=== PATIENT | male | born 1985 | race African-American/Black ===

== ENCOUNTER 2018-06-09 22:45 | Inpatient (IN) | payer MEDICAID, OTHER ==
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
[2018-06-10 00:01] LABS: Amphetamine Screen,Urine Not Detected (NotDetected); Barbiturate Screen,Urine Not Detected (NotDetected); Benzodiazepines Screen,Urine Not Detected (NotDetected); Cocaine Screen,Urine Not Detected (NotDetected); Methadone Screen, Urine Not Detected (NotDetected); Opiate Screen,Urine Not Detected (NotDetected); Oxycodone Screen, Urine Not Detected (NotDetected); Phencyclidine Screen,Urine Not Detected (NotDetected); Tricyclic Antidepressant,Urine Not Detected (NotDetected); Urn Cannabinoid Scrn Not Detected (NotDetected)
[2018-06-10] MEDS ORDERED: MAGNESIUM HYDROXIDE 2,400 MG/10 ML CUP PO PRN (01:13)
[2018-06-10] MEDS ORDERED: MAG HYDROX/AL HYDROX/SIMETH 30 ML CUP PO PRN (01:13)
[2018-06-10] MEDS ORDERED: ACETAMINOPHEN TAB 325 MG TAB PO PRN (01:13)
--- NOTE | 2018-06-10 02:22 | P.HPMEDMHU ---
History of Present Illness H&P Date: 06/10/18 Chief Complaint: anxiety Patient is a 32-year-old -[place] male with a past medical history of hypertension not currently on treatment, schizophrenia, and tobacco abuse who has been admitted to the mental health unit for suicidal/homicidal behaviors and increased anxiety. Patient seen and examined. He states that he has had a cold for the last few days. He reports a nonproductive cough, shortness of breath, sore throat, runny nose, stuffy nose. He denies any ear pain. He states he has had headaches for the last 2-1/2 years. He reports vomiting 1 and some nausea. He denies any diarrhea and constipation. He does complain of some chest pain that happens when he feels anxious. He is unable to quantify it further for me. He is unable to tell me when it happened, how often it happens or how severe it is. He denies any dysuria. He reports a weight loss. Is very unclear on how much he lost approximately 50 pounds. He initially tells me it was over 2 weeks, then over 2 months and then he is not sure on how long. He also complains of insomnia. He has increased anxiety. He denies any unusual weakness, numbness, tingling, changes in his hair/skin/ nails. He denies any fevers. Past Medical History Additional Past Medical History / Comment(s): Possible history of hypertension and used to be on Coreg. History of Any Multi-Drug Resistant Organisms: MRSA Date of last positivie culture/infection: 2017 MDRO Source:: right second finger. Past Surgical History: No Surgical Hx Reported Smoking Status: Current every day smoker Past Alcohol Use History: None Reported Past Drug Use History: None Reported Additional History: Lives by himself, not currently employed. - Past Family History Father Family Medical History: No Reported History Mother Family Medical History: No Reported History Medications and Allergies Home Medications Medication Instructions Recorded Confirmed Type Carvedilol [Coreg] 3.125 mg PO BID 06/09/18 06/09/18 History Allergies Allergy/AdvReac Type Severity Reaction Status Date / Time quetiapine [From Seroquel] Allergy Unknown Verified 06/10/18 02:15 ziprasidone [From Geodon] Allergy Unknown Verified 06/10/18 02:15 Physical Exam Osteopathic Statement: *. No significant issues noted on an osteopathic structural exam other than those noted in the History and Physical/Consult. Vitals: Vital Signs Temp Pulse Resp BP Pulse Ox 06/10/18 01:47 81 18 168/89 98 06/09/18 22:48 98.7 F 98 16 145/80 99 Intake and Output 06/09/18 06/09/18 06/10/18 14:59 22:59 06:59 Other: Weight 99.79 kg General: non toxic, no distress, appears at stated age, normal weight Derm: no unusual rashes/lesions no unusual ecchymoses, warm, dry Head: atraumatic, normocephalic, symmetric Eyes: EOMI, no lid lag, anicteric sclera, pupils equal round reactive to light ENT: Nose and ears atraumatic, no thrush, no pharyngeal erythema Neck: No thyromegaly, no cervical lymphadenopathy, trachea midline, supple Mouth: no lip lesion, mucus membranes moist Cardiovascular: S1S2 reg, no murmur, positive posterior tibial pulse bilateral, no edema, capillary refill less than 2 seconds Lungs: decreased breath sounds bilateral, no rhonchi, no rales , no accessory muscle use Abdominal: soft, nontender to palpation, no guarding, no appreciable organomegaly, normal bowel sounds Ext: no gross muscle atrophy, muscle strength 5 out of 5 in all 4 extremities grossly, no contractures, Neuro: CN II-XI grossly intact, finger to nose within normal limits, Psych: Alert, oriented, anxious and fidgeting during our conversation, evasive with questioning Cranial Nerve Examination - Cranial Nerves Cranial Nerve II- Optic: Intact Cranial Nerve III- Oculomotor: Intact Cranial Nerve IV- Trochlear: Intact Cranial Nerve V- Trigeminal: Intact Cranial Nerve - Abducens: Intact Cranial Nerve VII- Facial: Intact Cranial Nerve VIII- Auditory: Intact Cranial Nerve IX- Glossopharyngeal: Intact Cranial Nerve X- Vagus: Intact Cranial Nerve XI- Accessory: Intact Cranial Nerve XII- Hypoglossal: Intact Thrombosis Risk Factor Assmnt - DVT/VTE Prophylaxis DVT/VTE Prophylaxis: Low risk, early ambulation encouraged Assessment and Plan Assessment: Upper respiratory tract infection - claritin and flonase X 5 days, prn mucinex and cephacol Tobacco abuse - cessation - nicotine replacement Obesity BMI 34.5 - structure outpatient weight loss Schizophrenia with anxiety and bizarre behaviors - your psych management Thank you for allowing us to participate in the care of this patient. We will follow peripherally. Do not hesitate to contact us with questions. Someone can be reached from the [facility] hospitalist group at all hours of the day at [phone].
[2018-06-10 02:35] VITALS: BMI 28.0
[2018-06-10] MEDS: BENZOCAINE/MENTHOL LOZENG 1 EACH LOZENGE MUCOUS MEM PRN ×2 (03:31→20:45)
[2018-06-10] MEDS: guaiFENesin 600 MG TABLET.ER PO PRN (03:32)
[2018-06-10] MEDS: LORazepam 1 MG TAB PO PRN (03:39)
[2018-06-10] MEDS: LORATADINE 10 MG TAB PO SCH (07:45)
[2018-06-10] MEDS: FLUTICASONE 50MCG/SPRAY NASAL 16GM EA NOSTRIL SCH (07:46)
[2018-06-10] MEDS: NICOTINE 14MG/24HR PATCH TRANSDERM SCH (07:46)
[2018-06-10 09:11] LABS: Basophils # (A) 0.1 k/uL (0-0.2); Basophils % (A) 1 %; Eosinophils # (A) 0.2 k/uL (0-0.7); Eosinophils % (A) 2 %; HCT 46.6 % (39.0-53.0); HGB 15.2 gm/dL (13.0-17.5); Lymphocytes # (A) 1.9 k/uL (1.0-4.8); Lymphocytes % (A) 21 %; MCH 30.2 pg (25.0-35.0); MCHC 32.6 g/dL (31.0-37.0); MCV 92.5 fL (80.0-100.0); Mean Platelet Volume 6.9; Monocytes # (A) 0.5 k/uL (0-1.0); Monocytes % (A) 5 %; Neutrophils # (A) 6.2 k/uL (1.3-7.7); Neutrophils % (A) 69 %; Platelet Count 292 k/uL (150-450); RBC 5.04 m/uL (4.30-5.90); RDW 13.3 % (11.5-15.5)
[2018-06-10 09:24] LABS: ALT 27 U/L (21-72); AST 33 U/L (17-59); Albumin 4.2 g/dL (3.5-5.0); Alkaline Phosphatase 78 U/L (38-126); Anion Gap 10 mmol/L; Blood Urea Nitrogen 10 mg/dL (9-20); Calcium 9.6 mg/dL (8.4-10.2); Carbon Dioxide 28 mmol/L (22-30); Chloride 102 mmol/L (98-107); Cholesterol 127 mg/dL (<200); Glucose 105 mg/dL (74-99); HDL Cholesterol 35 mg/dL (40-60); LDL Cholesterol,Calculated 75 mg/dL (0-99); Sodium 140 mmol/L (137-145); Total Bilirubin 1.1 mg/dL (0.2-1.3); Total Protein 7.3 g/dL (6.3-8.2); Triglycerides 83 mg/dL (<150)
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
[2018-06-10] MEDS: ARIPiprazole 15 MG TAB PO SCH (10:44)
[2018-06-10 20:22] LABS: Hemoglobin A1C 5.1 % (4.0-6.0)
[2018-06-10] MEDS ORDERED: HALOPERIDOL LACTATE 5 MG/ML 1 ML VIAL IM PRN (23:19)
[2018-06-10] MEDS ORDERED: LORazepam 2 MG/ML INJ IM PRN (23:21)
[2018-06-10] MEDS ORDERED: BENZTROPINE MESYLATE 1 MG TAB PO PRN (23:22)
[2018-06-10] MEDS ORDERED: LORazepam 2 MG/ML INJ ONE (23:28)
[2018-06-10] MEDS ORDERED: HALOPERIDOL LACTATE 5 MG/ML 1 ML VIAL ONE (23:29)
[2018-06-10] MEDS ORDERED: BENZTROPINE 2 MG/2 ML AMP IM PRN (23:31)
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
[2018-06-11] MEDS ORDERED: HALOPERIDOL LACTATE 5 MG/ML 1 ML VIAL IM STA (00:32)
[2018-06-11] MEDS ORDERED: diphenhydrAMINE 50 MG/ML 1 ML VIAL IM STA (00:32)
[2018-06-11] MEDS: guaiFENesin 600 MG TABLET.ER PO PRN ×2 (02:58→23:57)
[2018-06-11] MEDS: ARIPiprazole 15 MG TAB PO SCH (07:29)
[2018-06-11] MEDS: LORATADINE 10 MG TAB PO SCH (07:29)
[2018-06-11] MEDS: FLUTICASONE 50MCG/SPRAY NASAL 16GM EA NOSTRIL SCH (07:29)
[2018-06-11] MEDS: NICOTINE 14MG/24HR PATCH TRANSDERM SCH (07:29)
--- NOTE | 2018-06-11 12:20 | P.PN ---
Subjective Progress Note Date: 06/11/18 Principal diagnosis: Schizophrenia Patient's Immediate Situation: Endangers others' safety, Violent behavior Patient's Immediate Situation - Comment: Became agitated after wanting to leave the hospital. Patient was fighting security. Patient's Reaction to the Intervention: Appropriate, Cooperative Patient's Medical & Behavioral Condition: Awake, Alert, Follows directions Objective - Vital Signs Vital signs: Vital Signs Temp 99.4 F 06/10/18 02:19 Pulse 80 06/11/18 01:05 Resp 16 06/11/18 01:05 BP 135/68 06/11/18 01:05 Pulse Ox 99 06/11/18 01:05 - Labs CBC & Chem 7: 06/10/18 08:38 06/10/18 08:38 Assessment and Plan Assessment: Patient presented to nursing station demanding to be discharged. Patient was demanding for the doctor to see him tonight and be discharged from the unit "now ". Patient then demanded for this script writer to let him go home. Patient presented paranoid and tense with intense eye contact. Patient stating to staff that he is not playing our games, swearing and yelling at this wrtier to get away from him. Patient stated to this nurse "you better let me out of here!! HPI: The patient was admitted with reports from his brother that he had been acting bizarre, had been getting into altercations with his neighbors, and not caring for himself well. The patient has a known history of schizophrenia and it appears he has been off of antipsychotic medication for an extended period of time. He was cared for by [facility] in the past and I believe his case was closed due to his noncompliance. The patient states he felt overwhelmed yesterday he felt stressed and he couldn't think straight. He reports feeling better now that he is here. He endorses no suicidal or homicidal ideation intent or plan. He indicates that his sleep had been impaired but he slept better last night. Appetite was impaired but he states that is improving as well. No reported tearfulness or crying spells. He doesn' t feel sad at this time. He reports no particular struggles with anxiety symptoms. He endorses no hypomanic or manic episodes. It does appear that he is underreporting symptoms during our evaluation. He states he has no firearms at home. PAST PSYCHIATRIC HISTORY: He patient has had numerous inpatient admissions he states somewhere between 5 and 10. He reports no history of suicide attempts. He has been on Abilify maintena, Risperdal Consta, Invega Sustenna. Of the 3 he prefers Abilify maintena. He was in treatment with [facility] in the past. He has had to be court ordered for treatment in the past as well. During the night he was agitated belligerent and wanting to fight the nursing staff. He was given Haldol 10 mg IM and 100 mg Benadryl. MENTAL STATUS EXAM: The patient is a 32-year-old -[place] male appearing older than his stated age. He is dressed in his own clothing. He has a disheveled appearance hygiene is fair. Dentition appears impaired as he has staining of his teeth. Eye contact is appropriate. He has a hoarse voice and states that has been a chronic issue. He reports his mood is "better". He indicates having no suicidal ideation intent or plan no homicidal ideation intent or plan. He is reporting no auditory or visual hallucinations or any specific delusions. Based on reports from his brother to appears that the patient may be underreporting symptoms of psychosis. The patient demonstrates no tangential thinking loose associations or flight of ideas. He does not appear hypomanic or manic at this time. He maintains a constricted to blunted affect. He demonstrates no verbal or physical aggressiveness. He is able to answer questions today and is much calmer after he had the 10 mg of Haldol and 100 mg Benadryl. (1) Acute psychosis Current Visit: Yes Status: Acute Code(s): F23 - BRIEF PSYCHOTIC DISORDER SNOMED Code(s): 44009790 Time with Patient: Less than 30
[2018-06-11] MEDS: BENZOCAINE/MENTHOL LOZENG 1 EACH LOZENGE MUCOUS MEM PRN ×2 (17:45→20:17)
[2018-06-11] MEDS: LORazepam 1 MG TAB PO PRN (23:57)
[2018-06-12] MEDS: BENZOCAINE/MENTHOL LOZENG 1 EACH LOZENGE MUCOUS MEM PRN ×4 (03:18→20:08)
[2018-06-12] MEDS: ARIPiprazole 15 MG TAB PO SCH (08:00)
[2018-06-12] MEDS: LORATADINE 10 MG TAB PO SCH (08:00)
[2018-06-12] MEDS: FLUTICASONE 50MCG/SPRAY NASAL 16GM EA NOSTRIL SCH (08:07)
[2018-06-12] MEDS: NICOTINE 14MG/24HR PATCH TRANSDERM SCH (08:08)
--- NOTE | 2018-06-12 09:52 | P.PN ---
Subjective Progress Note Date: 06/12/18 Principal diagnosis: Schizophrenia 06/10/2018Patient's Immediate Situation: Endangers others' safety, Violent behavior Patient's Immediate Situation - Comment: Became agitated after wanting to leave the hospital. Patient was fighting security. Patient's Reaction to the Intervention: Appropriate, Cooperative Patient's Medical & Behavioral Condition: Awake, Alert, Follows directions 06/12/2018 more alert and oriented to person place and time. He realized had to get back on his community mental health medications since he is not functioning well. He has developed a cold and has nasal congestion and raspy voice. He is not suicidal homicidal, appears no voices does not see anything. His mood is stable. Objective - Vital Signs Vital signs: Vital Signs Temp 98.4 F 06/12/18 06:25 Pulse 103 H 06/12/18 03:17 Resp 14 06/12/18 03:17 BP 116/67 06/12/18 03:17 Pulse Ox 99 06/11/18 01:05 - Labs CBC & Chem 7: 06/10/18 08:38 06/10/18 08:38 Assessment and Plan Assessment: Patient presented to nursing station demanding to be discharged. Patient was demanding for the doctor to see him tonight and be discharged from the unit "now ". Patient then demanded for this grant writer to let him go home. Patient presented paranoid and tense with intense eye contact. Patient stating to staff that he is not playing our games, swearing and yelling at this wrtier to get away from him. Patient stated to this nurse "you better let me out of here!! HPI: The patient was admitted with reports from his brother that he had been acting bizarre, had been getting into altercations with his neighbors, and not caring for himself well. The patient has a known history of schizophrenia and it appears he has been off of antipsychotic medication for an extended period of time. He was cared for by [facility] in the past and I believe his case was closed due to his noncompliance. The patient states he felt overwhelmed yesterday he felt stressed and he couldn't think straight. He reports feeling better now that he is here. He endorses no suicidal or homicidal ideation intent or plan. He indicates that his sleep had been impaired but he slept better last night. Appetite was impaired but he states that is improving as well. No reported tearfulness or crying spells. He doesn' t feel sad at this time. He reports no particular struggles with anxiety symptoms. He endorses no hypomanic or manic episodes. It does appear that he is underreporting symptoms during our evaluation. He states he has no firearms at home. PAST PSYCHIATRIC HISTORY: He patient has had numerous inpatient admissions he states somewhere between 5 and 10. He reports no history of suicide attempts. He has been on Abilify maintena, Risperdal Consta, Invega Sustenna. Of the 3 he prefers Abilify maintena. He was in treatment with [facility] in the past. He has had to be court ordered for treatment in the past as well. During the night he was agitated belligerent and wanting to fight the nursing staff. He was given Haldol 10 mg IM and 100 mg Benadryl. MENTAL STATUS EXAM: The patient is a 32-year-old -[place] male appearing older than his stated age. He is dressed in his own clothing. He has a disheveled appearance hygiene is fair. Dentition appears impaired as he has staining of his teeth. Eye contact is appropriate. He has a hoarse voice and states that has been a chronic issue. He reports his mood is "better". He indicates having no suicidal ideation intent or plan no homicidal ideation intent or plan. He is reporting no auditory or visual hallucinations or any specific delusions. Based on reports from his brother to appears that the patient may be underreporting symptoms of psychosis. The patient demonstrates no tangential thinking loose associations or flight of ideas. He does not appear hypomanic or manic at this time. He maintains a constricted to blunted affect. He demonstrates no verbal or physical aggressiveness. He is able to answer questions today and is much calmer after he had the 10 mg of Haldol and 100 mg Benadryl. (1) Acute psychosis Current Visit: Yes Status: Acute Priority: Medium Code(s): F23 - BRIEF PSYCHOTIC DISORDER SNOMED Code(s): 54457007 Plan: Client was discharge and instructed him to talk with Dr. Manriquez Time with Patient: Less than 30
[2018-06-13] MEDS: LORazepam 1 MG TAB PO PRN (01:30)
[2018-06-13] MEDS: guaiFENesin 600 MG TABLET.ER PO PRN (01:31)
[2018-06-13] MEDS: BENZOCAINE/MENTHOL LOZENG 1 EACH LOZENGE MUCOUS MEM PRN ×3 (01:34→17:58)
[2018-06-13] MEDS: LORATADINE 10 MG TAB PO SCH (09:16)
[2018-06-13] MEDS: FLUTICASONE 50MCG/SPRAY NASAL 16GM EA NOSTRIL SCH (09:17)
[2018-06-13] MEDS: NICOTINE 14MG/24HR PATCH TRANSDERM SCH (09:17)
--- NOTE | 2018-06-13 09:49 | P.PN ---
Progress Note - Text Interval history: The patient is found in the hallway follows me to an interview room. It is reported that he had an agitated episode Wednesday night. In the evening he had demanded to be discharged. He was temporarily restrained and received intramuscular medication. There've been no other events following that. Staff state that the patient withdrew his voluntary status on Wednesday. We discussed the patient's psychotropic medication he has no questions or concerns we discussed titrating the dose and he is agreeable. We discussed transitioning to the Abilify maintena prior to discharge and he is agreeable. He states he has spoken with his mother over the phone and she visited over the weekend. Mental status exam: The patient is alert he seated calmly he is cooperative and easily directed. He reports that his mood is improved he is reporting no suicidal or homicidal thoughts. He reports no auditory or visual hallucinations or any specific delusions. He may be underreporting delusional thought. He demonstrates no verbal or physical aggressiveness he demonstrates no involuntary repetitive movements. Insight and judgment improving. Eye contact is appropriate speech is spontaneous fluent nonpressured. He continues to reiterate his desire to be discharged soon and we discussed our treatment goals while here. Plan: The patient will continue on the Abilify I will titrate the dose to 20 mg daily. We will monitor him for safety. We will consider discharging him in the next 1-2 if clinically appropriate. Vital signs reviewed.
--- NOTE | 2018-06-13 16:56 | XR ---
EXAMINATION TYPE: XR chest 1V portable DATE OF EXAM: 06/13/2018 COMPARISON: 04/19/2013 HISTORY: Cough and short of breath TECHNIQUE: Single frontal view of the chest is obtained. FINDINGS: There is no heart failure nor confluent pneumonic infiltrate. Heart size is normal. Costop hrenic angles are clear. There is small linear density at the left lung base. IMPRESSION: Small area of subsegmental atelectasis at the left lung base. Normal heart.
[2018-06-14 00:55] VITALS: BP 152/92; PULSE 75; RESP 20; TEMP 98.3
[2018-06-14] MEDS: BENZOCAINE/MENTHOL LOZENG 1 EACH LOZENGE MUCOUS MEM PRN (02:30)
[2018-06-14] MEDS: LORazepam 1 MG TAB PO PRN (02:31)
[2018-06-14] MEDS: guaiFENesin 600 MG TABLET.ER PO PRN (02:31)
[2018-06-14] MEDS: FLUTICASONE 50MCG/SPRAY NASAL 16GM EA NOSTRIL SCH (08:22)
[2018-06-14] MEDS: NICOTINE 14MG/24HR PATCH TRANSDERM SCH (08:23)
[2018-06-14] MEDS: LORATADINE 10 MG TAB PO SCH ×2 (08:23→09:46)
--- NOTE | 2018-06-14 09:17 | P.DS ---
Providers Date of admission: 06/10/18 01:05 Expected date of discharge: 06/14/18 Attending physician: Julian Manriquez Consults: 06/10/18 01:13 Consult Physician Routine Consulting Provider: Arun Draper Consult Reason/Comments: medical management Do you want consulting provider notified?: Already Contacted Primary care physician: Stated None - Discharge Diagnosis(es) (1) Schizophrenia Current Visit: Yes Status: Acute Priority: High Hospital Course: Brief summary of admission note: This patient is a 32-year-old -Fijian male who was admitted to the mental health unit through the emergency room for symptoms of psychosis. The patient reportedly was acting bizarre had been getting into verbal altercations with neighbors and not caring for himself well. He had been off of his antipsychotic medication for an extended period of time. For full details please refer to my psychiatric evaluation dated 06/10. Summary of hospital course: The patient was admitted to the mental health unit voluntarily. We reviewed his presenting symptoms and treatment options. We decided to reinitiate Abilify and the dose was titrated to 20 mg daily. He was willing to comply with the Abilify maintena injection which will be given today. The patient selectively attended groups. He has been cooperative and directable. He did have an episode of agitation on Wednesday evening where he was demanding to be discharged. He required use of restraints and he received injectable medication. He has demonstrated no further agitated behavior over the last several days. The patient is verbalizing no thoughts of harming himself or others. He is able to attend to his activities of daily living. He is reporting a resolution of his psychotic symptoms. Social work was able to reach the patient's mother via phone. Mental status exam: The patient is an -Fijian male appearing older than his stated age. He is dressed in his own clothing he has a disheveled appearance hygiene is adequate. Eye contact is appropriate speech is fluent and spontaneous nonpressured. He is easily directed during the session. He reports no hopelessness thinking he reports no suicidal or homicidal ideation intent or plan. He is endorsing no auditory or visual hallucinations endorses no specific delusions. He seated calmly he demonstrates no verbal or physical aggressiveness. He demonstrates no involuntary repetitive movements. Insight and judgment improved. He is oriented to person place and date. He demonstrates future oriented thinking. Thought process is linear he demonstrates no tangential thinking loose associations or flight of ideas. He does not appear hypomanic or manic. Impressions 1. Schizophrenia 2. Hypertension Plan: The patient will be discharged from mental health unit to return home. He will continue on Abilify 20 mg daily for 2 weeks then discontinue. He will receive the Abilify maintena 400 mg injection today. We we'll have social work arrange his outpatient follow-up most likely with [facility]. The patient's encouraged to continue abstaining from any use of alcohol or illicit drugs. At this time the patient is demonstrating inability to care for himself in meeting his ADLs. He reports no suicidal or homicidal ideation intent or plan he is endorsing no current acute symptoms of psychosis. He is appropriate for transition back to outpatient care. He is instructed to return to the hospital any safety concerns. The patient indicates he has not been using the nicotine patch while here and does not wish to have a prescription for the nicotine patch as he will not use them. He is encouraged to follow-up with his primary care physician regarding his blood pressure. Patient Condition at Discharge: Stable Plan - Discharge Summary Discharge Rx Participant: No New Discharge Prescriptions: New ARIPiprazole [Abilify] 20 mg PO DAILY #14 tab ARIPiprazole IM [Abilify Maintena] 400 mg IM ONCE #1 vial Loratadine [Claritin] 10 mg PO DAILY tab Discontinued Carvedilol [Coreg] 3.125 mg PO BID Discharge Medication List ARIPiprazole IM [Abilify Maintena] 400 mg IM ONCE #1 vial 06/14/18 [Rx] ARIPiprazole [Abilify] 20 mg PO DAILY #14 tab 06/14/18 [Rx] Loratadine [Claritin] 10 mg PO DAILY tab 06/14/18 [Rx] Follow up Appointment(s)/Referral(s): None,Stated [Primary Care Provider] - 1-2 days Patient Instructions/Handouts: How to Stop Smoking (ED) Activity/Diet/Wound Care/Special Instructions: Keep your follow up appointments as scheduled. Continue medications as prescribed. No alcohol or street drugs. No access to guns or weapons. Crisis line if needed .
[2018-06-14] MEDS ORDERED: ARIPiprazole IM 400 MG VIAL (NO COST) IM ONE (09:30)
== END 2018-06-14 09:56 | disposition home or self-care (01) | DRG 885 ==
LOC: EC 22:45 → 3MHU 06-10 01:05
PROVIDERS: ADMIT Psychiatry & Neurology Psychiatry; ATTEND Psychiatry & Neurology Psychiatry
DX: F20.9 Schizophrenia, unspecified (principal); R45.851 Suicidal ideations; I10 Essential (primary) hypertension; R45.850 Homicidal ideations; F17.200 Nicotine dependence, unspecified, uncomplicated; Z79.899 Other long term (current) drug therapy; Z91.19 Patient's noncompliance with other medical treatment and regimen; Z91.410 Personal history of adult physical and sexual abuse; Z88.8 Allergy status to other drugs, medicaments and biological substances; Z78.1 Physical restraint status
CPT/HCPCS: 71045; 80053; 80061; 80306; 82075; 83036; 84443; 85025; 99285

== ENCOUNTER 2018-09-04 08:53 | Emergency (ER) | payer OTHER ==
--- NOTE | 2018-09-04 09:37 | ED ---
General Adult HPI - General Chief complaint: Psychiatric Symptoms Stated complaint: anxiety, feeling like he may hurt someone Time Seen by Provider: 09/04/18 08:55 Source: patient, RN notes reviewed Mode of arrival: ambulatory Limitations: no limitations - History of Present Illness Initial comments: This a 33-year-old male presents emergency Department stating he got kicked out of his sister's home today and is now homeless in the last 2 hours. Patient states he also feels like hurting someone though he has not yet heard anybody and is not had a history of hurting anybody. Patient denies any suicidal ideations. Patient denies any drug use. Patient states he occasionally does drink but not lately. Patient states that he has a history of schizophrenia and that is why is on disability. Patient states he gets a shot every month at [facility]. Patient denies any physical complaints today. Patient denies chest pain difficulty breathing shortness of breath. Patient denies any recent fever chills or cough per patient denies headache patient denies numbness weakness. Patient denies any abdominal pain patient denies nausea vomiting diarrhea. - Related Data Home Medications Medication Instructions Recorded Confirmed ARIPiprazole IM [Abilify Maintena] 400 mg IM Q28D 09/04/18 09/04/18 Carvedilol [Coreg] 3.125 mg PO BID 09/04/18 09/04/18 Fenofibrate Nanocrystallized 145 mg PO DAILY 09/04/18 09/04/18 [Fenofibrate] Metoprolol Tartrate [Lopressor] 25 mg PO BID 09/04/18 09/04/18 amLODIPine [Norvasc] 5 mg PO DAILY 09/04/18 09/04/18 Allergies Allergy/AdvReac Type Severity Reaction Status Date / Time quetiapine [From Seroquel] Allergy Unknown Verified 09/04/18 09:30 ziprasidone [From Geodon] Allergy Unknown Verified 09/04/18 09:30 Review of Systems ROS Statement: Those systems with pertinent positive or pertinent negative responses have been documented in the HPI. ROS Other: All systems not noted in ROS Statement are negative. Past Medical History Past Medical History: No Reported History Additional Past Medical History / Comment(s): Possible history of hypertension and used to be on Coreg. History of Any Multi-Drug Resistant Organisms: MRSA Date of last positivie culture/infection: 2018 MDRO Source:: right second finger. Past Surgical History: No Surgical Hx Reported Past Psychological History: Schizophrenia Smoking Status: Current every day smoker Past Alcohol Use History: None Reported Past Drug Use History: None Reported - Past Family History Father Family Medical History: No Reported History Mother Family Medical History: No Reported History General Exam - General Exam Comments Initial Comments: GENERAL: Patient is well-developed and well-nourished. Patient is nontoxic and well- hydrated and is in no acute distress. ENT: Neck is soft and supple. No significant lymphadenopathy is noted. Oropharynx is clear. Moist mucous membranes. Neck has full range of motion without eliciting any pain. EYES: The sclera were anicteric and conjunctiva were pink and moist. Extraocular movements were intact and pupils were equal round and reactive to light. Eyelids were unremarkable. PULMONARY: Unlabored respirations. Good breath sounds bilaterally. No audible rales rhonchi or wheezing was noted. CARDIOVASCULAR: There is a regular rate and rhythm without any murmurs gallops or rubs. ABDOMEN: Soft and nontender with normal bowel sounds. No palpable organomegaly was noted. There is no palpable pulsatile mass. SKIN: Skin is clear with no lesions or rashes and otherwise unremarkable. NEUROLOGIC: Patient is alert and oriented x3. Cranial nerves II through XII are grossly intact. Motor and sensory are also intact. Normal speech, volume and content. Symmetrical smile. MUSCULOSKELETAL: Normal extremities with adequate strength and full range of motion. LYMPHATICS: No significant lymphadenopathy is noted PSYCHIATRIC: Patient states he feels like hurting someone but he has not yet hurting but he has no plans to hurt anybody. Patient denies any suicidal ideations. Limitations: no limitations Course Vital Signs 09/04/18 08:56 Temperature 98.2 F Pulse Rate 102 H Respiratory 20 Rate Blood Pressure 163/90 O2 Sat by Pulse 98 Oximetry Medical Decision Making - Medical Decision Making [facility] evaluated the patient and determined the patient could go to [facility] and get his shot for his schizophrenia tomorrow. She also indicated to me that he has not been getting them lately. - Lab Data Lab Results 09/04/18 Range/Units 10:50 Urine Opiates Screen Not Detected (NotDetected) Ur Oxycodone Screen Not Detected (NotDetected) Urine Methadone Screen Not Detected (NotDetected) Ur Propoxyphene Screen Not Detected (NotDetected) Ur Barbiturates Screen Not Detected (NotDetected) U Tricyclic Antidepress Not Detected (NotDetected) Ur Phencyclidine Scrn Not Detected (NotDetected) Ur Amphetamines Screen Not Detected (NotDetected) U Methamphetamines Scrn Not Detected (NotDetected) U Benzodiazepines Scrn Not Detected (NotDetected) Urine Cocaine Screen Not Detected (NotDetected) U Marijuana (THC) Screen Not Detected (NotDetected) Disposition Clinical Impression: Depression Disposition: HOME SELF-CARE Condition: Good Additional Instructions: Patient should go to [facility]. patient should follow-up at [facility] for his medications. Is patient prescribed a controlled substance at d/c from ED?: No Referrals: None,Stated [Primary Care Provider] - 1-2 days Time of Disposition: 13:32
[2018-09-04 11:34] LABS: Amphetamine Screen,Urine Not Detected (NotDetected); Barbiturate Screen,Urine Not Detected (NotDetected); Benzodiazepines Screen,Urine Not Detected (NotDetected); Cocaine Screen,Urine Not Detected (NotDetected); Methadone Screen, Urine Not Detected (NotDetected); Opiate Screen,Urine Not Detected (NotDetected); Oxycodone Screen, Urine Not Detected (NotDetected); Phencyclidine Screen,Urine Not Detected (NotDetected); Tricyclic Antidepressant,Urine Not Detected (NotDetected); Urn Cannabinoid Scrn Not Detected (NotDetected)
[2018-09-04 14:06] VITALS: BP 134/58; PULSE 78; RESP 18; TEMP 98.6
== END 2018-09-04 14:17 | disposition home or self-care (01) ==
LOC: EC 08:53
DX: F32.9 Major depressive disorder, single episode, unspecified (principal); F20.9 Schizophrenia, unspecified; F17.200 Nicotine dependence, unspecified, uncomplicated; Z59.0 Homelessness; Z79.02 Long term (current) use of antithrombotics/antiplatelets; Z79.899 Other long term (current) drug therapy; Z88.8 Allergy status to other drugs, medicaments and biological substances
CPT/HCPCS: 80306; 82075; 99284

== ENCOUNTER 2018-10-11 18:37 | Emergency (ER) | payer OTHER ==
[2018-10-11 19:30] VITALS: BP 153/111; PULSE 92; RESP 18; TEMP 98.8
--- NOTE | 2018-10-11 20:25 | ED ---
General Adult HPI - General Source: patient, RN notes reviewed Mode of arrival: ambulatory Limitations: no limitations <Praneeth Ramirez - Last Filed: 10/11/18 20:46> <Rae Newman - Last Filed: 10/12/18 22:36> - General Chief complaint: Psychiatric Symptoms Stated complaint: Mental Health Time Seen by Provider: 10/11/18 18:37 - History of Present Illness Initial comments: This is a 33-year-old male who presents emergency Department complaining that he is homeless and has been extremely stressed lately and he has been having multiple panic attacks. Patient is requesting to go upstairs [address] and spent a few days. Patient denies any suicidal homicidal ideations. Patient states she's been out of all of his medications and he believes that is the reason he is much more stressed and having many more panic attack. Patient denies any physical complaints today. Patient denies any chest pain difficulty breathing shortest breath. Patient denies any recent fever chills or cough. Patient denies abdominal pain patient denies nausea vomiting diarrhea. (Praneeth Ramirez) - Related Data Home Medications Medication Instructions Recorded Confirmed ARIPiprazole IM [Abilify Maintena] 400 mg IM Q28D 09/04/18 10/11/18 Ergocalciferol [Vitamin D2] 50,000 unit PO Q14D 10/11/18 10/11/18 Lisinopril [Zestril] 5 mg PO DAILY 10/11/18 10/11/18 Allergies Allergy/AdvReac Type Severity Reaction Status Date / Time quetiapine [From Seroquel] Allergy Unknown Verified 10/11/18 20:39 ziprasidone [From Geodon] Allergy Unknown Verified 10/11/18 20:39 Review of Systems ROS Other: All systems not noted in ROS Statement are negative. <Praneeth Ramirez - Last Filed: 10/11/18 20:46> ROS Other: All systems not noted in ROS Statement are negative. <Rae Newman - Last Filed: 10/12/18 22:36> ROS Statement: Those systems with pertinent positive or pertinent negative responses have been documented in the HPI. Past Medical History Past Medical History: No Reported History Additional Past Medical History / Comment(s): Possible history of hypertension and used to be on Coreg. History of Any Multi-Drug Resistant Organisms: MRSA Date of last positivie culture/infection: 2018 MDRO Source:: right second finger. Past Surgical History: No Surgical Hx Reported Past Psychological History: Schizophrenia Smoking Status: Current every day smoker Past Alcohol Use History: Occasional Past Drug Use History: None Reported - Past Family History Father Family Medical History: No Reported History Mother Family Medical History: No Reported History <Praneeth Ramirez - Last Filed: 10/11/18 20:46> General Exam Limitations: no limitations <Praneeth Ramirez - Last Filed: 10/11/18 20:46> - General Exam Comments Initial Comments: GENERAL: Patient is well-developed and well-nourished. Patient is nontoxic and well-hydrated and is in no acute distress. ENT: Neck is soft and supple. EYES: The sclera were anicteric and conjunctiva were pink and moist. Extraocular movements were intact and pupils were equal round and reactive to light. Eyelids were unremarkable. PULMONARY: Unlabored respirations. Good breath sounds bilaterally. No audible rales rhonchi or wheezing was noted. CARDIOVASCULAR: There is a regular rate and rhythm without any murmurs gallops or rubs. ABDOMEN: Soft and nontender with normal bowel sounds. SKIN: Skin is clear with no lesions or rashes and otherwise unremarkable. NEUROLOGIC: Patient is alert and oriented x3. Cranial nerves II through XII are grossly intact. Motor and sensory are also intact. Normal speech, volume and content. Symmetrical smile. MUSCULOSKELETAL: Normal extremities with adequate strength and full range of motion. No lower extremity swelling or edema. No calf tenderness. PSYCHIATRIC: Patient states she's having a lot of panic attacks. Patient denies any suicidal homicidal ideations (Praneeth Ramirez) Course Vital Signs 10/11/18 19:26 Temperature 98.8 F Pulse Rate 92 Respiratory 18 Rate Blood Pressure 153/111 O2 Sat by Pulse 97 Oximetry Medical Decision Making <Praneeth Ramirez - Last Filed: 10/11/18 20:46> <Rae Newman - Last Filed: 10/12/18 22:36> - Medical Decision Making Dr. Newman be taking over the care of this patient at 9 PM (Praneeth Ramirez) Patient care was signed out to me by Dr. Ramirez at 9 PM, patient presented for a psychiatric evaluation. Patient denied suicidal or homicidal ideation, patient did admit to currently being homeless. Patient has established care with [facility], he did miss his appointment today. He was evaluated by the emergency psychiatric services who recommended patient be discharged home with the plan for outpatient follow-up with [facility] tomorrow. Patient is agreeable. (Rae Newman) Disposition <Praneeth Ramirez - Last Filed: 10/11/18 20:46> Is patient prescribed a controlled substance at d/c from ED?: No <Rae Newman - Last Filed: 10/12/18 22:36> Clinical Impression: Nonadherence to medication, Depression Disposition: HOME SELF-CARE Condition: Stable Instructions (If sedation given, give patient instructions): Depression (ED) Additional Instructions: You can be seen by [facility] tomorrow, there you will have your medications refilled. Referrals: [facility] [Primary Care Provider] - 1-2 days
== END 2018-10-11 22:12 | disposition home or self-care (01) ==
LOC: EC 18:37
DX: Z91.14 Patient's other noncompliance with medication regimen (principal); F41.0 Panic disorder [episodic paroxysmal anxiety]; F20.9 Schizophrenia, unspecified; F17.200 Nicotine dependence, unspecified, uncomplicated; Z86.14 Personal history of Methicillin resistant Staphylococcus aureus infection; Z79.899 Other long term (current) drug therapy; Z88.8 Allergy status to other drugs, medicaments and biological substances; Z59.0 Homelessness
CPT/HCPCS: 82075; 99284

== ENCOUNTER 2019-01-06 04:55 | Emergency (ER) | payer OTHER ==
[2019-01-06 05:28] VITALS: BP 151/88; PULSE 93; RESP 18; TEMP 98.6
[2019-01-06] MEDS ORDERED: ACETAMINOPHEN TAB 325 MG TAB PO STA (05:51)
--- NOTE | 2019-01-06 05:59 | ED ---
Psych HPI - General Chief Complaint: Psychiatric Symptoms Stated Complaint: mental health Time Seen by Provider: 01/06/19 05:29 Source: patient Mode of arrival: ambulatory - History of Present Illness Initial Comments: This patient is a 33-year-old man with history of previous psychiatric disease who states that he feels like he is having trouble focusing due to having rapid thoughts. The patient states she has also had a lot of anxiety about mice at his residence. The patient denies having suicidal or homicidal ideation. He states that he previously used to be on Abilify but has not had this medication in months and feels like he may need to go back on that. MD Complaint: other -: days(s) Associated Psychiatric Symptoms: racing thoughts History of same: Yes Quality: getting worse Improves With: none Worsens With: none Context: not taking psychiatric medications Associated Symptoms: denies other symptoms - Related Data Allergies Allergy/AdvReac Type Severity Reaction Status Date / Time quetiapine [From Seroquel] Allergy Unknown Verified 01/06/19 05:04 ziprasidone [From Geodon] Allergy Unknown Verified 01/06/19 05:04 Review of Systems ROS Statement: Those systems with pertinent positive or pertinent negative responses have been documented in the HPI. ROS Other: All systems not noted in ROS Statement are negative. Constitutional: Denies: fever, chills Eyes: Denies: vision change Respiratory: Denies: cough, dyspnea Cardiovascular: Denies: chest pain, palpitations Gastrointestinal: Denies: abdominal pain, vomiting Neurological: Denies: headache, weakness Psychiatric: Reports: anxiety. Denies: auditory hallucinations, visual hallucinations, homicidal thoughts, suicidal thoughts Past Medical History Past Medical History: No Reported History Additional Past Medical History / Comment(s): Possible history of hypertension and used to be on Coreg. History of Any Multi-Drug Resistant Organisms: MRSA Date of last positivie culture/infection: 2018 MDRO Source:: right second finger. Past Surgical History: No Surgical Hx Reported Past Psychological History: Schizophrenia Smoking Status: Current every day smoker Past Alcohol Use History: Occasional Past Drug Use History: None Reported - Past Family History Father Family Medical History: No Reported History Mother Family Medical History: No Reported History General Exam General appearance: alert, in no apparent distress Head exam: Present: atraumatic, normocephalic Eye exam: Present: normal appearance. Absent: scleral icterus, conjunctival injection Respiratory exam: Present: normal lung sounds bilaterally. Absent: respiratory distress, wheezes, rales, rhonchi, stridor Cardiovascular Exam: Present: regular rate, normal rhythm, normal heart sounds. Absent: systolic murmur, diastolic murmur, rubs, gallop GI/Abdominal exam: Present: soft. Absent: tenderness, guarding, rebound Neurological exam: Present: alert, normal gait Psychiatric exam: Present: anxious. Absent: agitated, flat affect, manic, homicidal ideation, suicidal ideation Skin exam: Present: warm, dry, intact, normal color. Absent: rash Course Vital Signs 01/06/19 04:59 Temperature 98.6 F Pulse Rate 93 Respiratory 18 Rate Blood Pressure 151/88 O2 Sat by Pulse 99 Oximetry Disposition Clinical Impression: Schizophrenia Disposition: HOME SELF-CARE Condition: Fair Instructions (If sedation given, give patient instructions): Schizophrenia (ED) Is patient prescribed a controlled substance at d/c from ED?: No Referrals: None,Stated [Primary Care Provider] - 1-2 days
== END 2019-01-06 07:45 | disposition home or self-care (01) ==
LOC: EEVIPCON 04:55 → EC 04:55
DX: F20.9 Schizophrenia, unspecified (principal); F41.9 Anxiety disorder, unspecified; F17.200 Nicotine dependence, unspecified, uncomplicated; Z86.14 Personal history of Methicillin resistant Staphylococcus aureus infection; Z88.8 Allergy status to other drugs, medicaments and biological substances
CPT/HCPCS: 82075; 99284

== ENCOUNTER 2019-09-05 17:41 | Emergency (ER) | payer OTHER ==
[2019-09-05 17:58] VITALS: RESP 18
--- NOTE | 2019-09-05 18:07 | ED ---
Psych HPI - General Chief Complaint: Psychiatric Symptoms Stated Complaint: mental health Time Seen by Provider: 09/05/19 17:41 Source: patient, RN notes reviewed, old records reviewed Mode of arrival: EMS - History of Present Illness Initial Comments: This is a 34-year-old male history depression and schizoaffective disorder who is brought in by EMS today because he states he feels as if he is homicidal or suicidal. He denies any particular plans however he does feel this way he states. He states he has been drinking today but denies any other illicit drugs. No other modifying factors at this time MD Complaint: suicidal ideation, feels depressed, other - Related Data Previous Rx's Medication Instructions Recorded Paliperidone IM [Invega Sustenna] 234 mg IM DIRECTED #1 syr 08/07/19 Allergies Allergy/AdvReac Type Severity Reaction Status Date / Time quetiapine [From Seroquel] Allergy Unknown Verified 07/18/19 10:15 ziprasidone [From Geodon] Allergy Unknown Verified 07/18/19 10:15 Review of Systems ROS Statement: Those systems with pertinent positive or pertinent negative responses have been documented in the HPI. ROS Other: All systems not noted in ROS Statement are negative. Past Medical History Past Medical History: No Reported History Additional Past Medical History / Comment(s): Possible history of hypertension and used to be on Coreg. History of Any Multi-Drug Resistant Organisms: MRSA Date of last positivie culture/infection: 2017 MDRO Source:: right second finger. Past Surgical History: No Surgical Hx Reported Past Psychological History: Schizophrenia Smoking Status: Current every day smoker Past Alcohol Use History: Occasional Past Drug Use History: None Reported - Past Family History Father Family Medical History: No Reported History Mother Family Medical History: No Reported History General Exam - General Exam Comments Initial Comments: This a well-developed well-nourished awake alert oriented 3 male Limitations: no limitations General appearance: alert, in no apparent distress Head exam: Present: atraumatic, normocephalic, normal inspection Eye exam: Present: normal appearance, PERRL, EOMI. Absent: scleral icterus, conjunctival injection, periorbital swelling ENT exam: Present: normal exam, mucous membranes moist Neck exam: Present: normal inspection. Absent: tenderness, meningismus, lymphadenopathy Respiratory exam: Present: normal lung sounds bilaterally. Absent: respiratory distress, wheezes, rales, rhonchi, stridor Cardiovascular Exam: Present: regular rate, normal rhythm, normal heart sounds. Absent: systolic murmur, diastolic murmur, rubs, gallop, clicks GI/Abdominal exam: Present: soft, normal bowel sounds. Absent: distended, tenderness, guarding, rebound, rigid Extremities exam: Present: normal inspection, full ROM, normal capillary refill. Absent: tenderness, pedal edema, joint swelling, calf tenderness Back exam: Present: normal inspection Neurological exam: Present: alert, oriented X3, CN II-XII intact Psychiatric exam: Present: depressed, flat affect, homicidal ideation, suicidal ideation Skin exam: Present: warm, dry, intact, normal color. Absent: rash Course Vital Signs 09/05/19 09/05/19 09/05/19 17:51 20:00 22:00 Temperature 98.0 F 99.0 F Pulse Rate 80 75 Respiratory 18 18 Rate Blood Pressure 137/76 O2 Sat by Pulse 98 97 Oximetry 09/05/19 09/06/19 23:00 00:00 Temperature 98 F 97.9 F Pulse Rate 85 87 Respiratory 18 18 Rate Blood Pressure 132/77 124/75 O2 Sat by Pulse 98 98 Oximetry Medical Decision Making - Medical Decision Making The patient was medically cleared and evaluated by the EPS service she will be discharged he does have a safety plan. He will be staying with his mother tonight Disposition Clinical Impression: Alcohol abuse, Adjustment reaction of adult life Disposition: HOME SELF-CARE Condition: Good Instructions (If sedation given, give patient instructions): Mood Disorders (ED), Abuse of Alcohol (ED) Is patient prescribed a controlled substance at d/c from ED?: No Referrals: None,Stated [Primary Care Provider] - 1-2 days
[2019-09-06 00:07] VITALS: TEMP 97.9
[2019-09-06 00:27] VITALS: BP 131/75; PULSE 85
== END 2019-09-06 00:58 | disposition home or self-care (01) ==
LOC: EC 17:41
DX: F43.21 Adjustment disorder with depressed mood (principal); F10.10 Alcohol abuse, uncomplicated; R45.850 Homicidal ideations; R45.851 Suicidal ideations; F17.200 Nicotine dependence, unspecified, uncomplicated; Z88.8 Allergy status to other drugs, medicaments and biological substances; Z86.59 Personal history of other mental and behavioral disorders; Z86.14 Personal history of Methicillin resistant Staphylococcus aureus infection
CPT/HCPCS: 82075; 99285

== ENCOUNTER 2019-09-07 19:00 | Emergency (ER) | payer OTHER ==
--- NOTE | 2019-09-07 23:37 | ED ---
General Adult HPI - General Chief complaint: Psychiatric Symptoms Stated complaint: Mental health Time Seen by Provider: 09/07/19 20:18 Source: patient, RN notes reviewed Mode of arrival: ambulatory Limitations: no limitations - History of Present Illness Initial comments: 34-year-old male with a past medical history of schizophrenia presents to the emergency department for a chief complaint of "mental breakdown." Patient states his stresses too much and he feels like he is having a breakdown. States he is homeless but he did not feel like walking to the group home and the hospital is closer. States that he is not homicidal. He does not have any thoughts of suicide. Patient states he is taking his medication for schizophrenia.Patient has no other complaints at this time including shortness of breath, chest pain, abdominal pain, nausea or vomiting, headache, or visual changes. - Related Data Previous Rx's Medication Instructions Recorded Paliperidone IM [Invega Sustenna] 234 mg IM DIRECTED #1 syr 08/07/19 Allergies Allergy/AdvReac Type Severity Reaction Status Date / Time quetiapine [From Seroquel] Allergy Unknown Verified 09/07/19 19:13 ziprasidone [From Geodon] Allergy Unknown Verified 09/07/19 19:13 Review of Systems ROS Statement: Those systems with pertinent positive or pertinent negative responses have been documented in the HPI. ROS Other: All systems not noted in ROS Statement are negative. Past Medical History Past Medical History: No Reported History Additional Past Medical History / Comment(s): Possible history of hypertension and used to be on Coreg. History of Any Multi-Drug Resistant Organisms: MRSA Date of last positivie culture/infection: 2017 MDRO Source:: right second finger. Past Surgical History: No Surgical Hx Reported Past Psychological History: Schizophrenia Smoking Status: Current every day smoker Past Alcohol Use History: Occasional Past Drug Use History: None Reported - Past Family History Father Family Medical History: No Reported History Mother Family Medical History: No Reported History General Exam Limitations: no limitations General appearance: alert, in no apparent distress Head exam: Present: atraumatic, normocephalic, normal inspection Eye exam: Present: normal appearance, PERRL, EOMI. Absent: scleral icterus, conjunctival injection, periorbital swelling ENT exam: Present: normal exam, mucous membranes moist Neck exam: Present: normal inspection, full ROM. Absent: tenderness, meningismus, lymphadenopathy Respiratory exam: Present: normal lung sounds bilaterally. Absent: respiratory distress, wheezes, rales, rhonchi, stridor Cardiovascular Exam: Present: regular rate, normal rhythm, normal heart sounds. Absent: systolic murmur, diastolic murmur, rubs, gallop, clicks Neurological exam: Present: alert, oriented X3 Course Vital Signs 09/07/19 09/07/19 09/08/19 19:10 22:00 01:20 Temperature 98.3 F 97.7 F Pulse Rate 87 85 82 Respiratory 16 17 17 Rate Blood Pressure 158/97 138/89 129/79 O2 Sat by Pulse 99 100 100 Oximetry Medical Decision Making - Medical Decision Making Patient was evaluated by EPS. Patient again denying any suicidal or homicidal thoughts. Appears more situational as patient states he did not want to go to the group home. Patient's mother was contacted and patient will be going to her house. He will return with any worsening symptoms. - Lab Data Lab Results 09/07/19 Range/Units 23:39 Urine Opiates Screen Not Detected (NotDetected) Ur Oxycodone Screen Not Detected (NotDetected) Urine Methadone Screen Not Detected (NotDetected) Ur Propoxyphene Screen Not Detected (NotDetected) Ur Barbiturates Screen Not Detected (NotDetected) U Tricyclic Antidepress Not Detected (NotDetected) Ur Phencyclidine Scrn Not Detected (NotDetected) Ur Amphetamines Screen Not Detected (NotDetected) U Methamphetamines Scrn Not Detected (NotDetected) U Benzodiazepines Scrn Not Detected (NotDetected) Urine Cocaine Screen Not Detected (NotDetected) U Marijuana (THC) Screen Not Detected (NotDetected) Disposition Clinical Impression: Situational disturbance Disposition: HOME SELF-CARE Condition: Good Instructions (If sedation given, give patient instructions): Depression (ED) Additional Instructions: Please follow up with primary care provider in the next 1-2 days. If you have any worsening symptoms return to the emergency department. Is patient prescribed a controlled substance at d/c from ED?: No Referrals: Martin Gunn MD [STAFF PHYSICIAN] - 1-2 days Time of Disposition: 01:27
[2019-09-07] MEDS ORDERED: IBUPROFEN 600 MG TAB PO STA (23:40)
[2019-09-08 00:01] LABS: Amphetamine Screen,Urine Not Detected (NotDetected); Barbiturate Screen,Urine Not Detected (NotDetected); Benzodiazepines Screen,Urine Not Detected (NotDetected); Cocaine Screen,Urine Not Detected (NotDetected); Methadone Screen, Urine Not Detected (NotDetected); Opiate Screen,Urine Not Detected (NotDetected); Oxycodone Screen, Urine Not Detected (NotDetected); Phencyclidine Screen,Urine Not Detected (NotDetected); Tricyclic Antidepressant,Urine Not Detected (NotDetected); Urn Cannabinoid Scrn Not Detected (NotDetected)
[2019-09-08 01:20] VITALS: RESP 17
[2019-09-08 01:21] VITALS: BP 129/79; PULSE 82; TEMP 97.7
== END 2019-09-08 01:37 | disposition home or self-care (01) ==
LOC: EC 19:00
DX: F43.0 Acute stress reaction (principal); F20.9 Schizophrenia, unspecified; F17.200 Nicotine dependence, unspecified, uncomplicated; Z79.899 Other long term (current) drug therapy; Z88.8 Allergy status to other drugs, medicaments and biological substances; Z59.0 Homelessness; Z86.14 Personal history of Methicillin resistant Staphylococcus aureus infection
CPT/HCPCS: 80306; 82075; 99284

== ENCOUNTER 2020-02-11 19:53 | Emergency (ER) | payer OTHER ==
[2020-02-11 19:57] VITALS: RESP 18
--- NOTE | 2020-02-11 20:14 | ED ---
General Adult HPI - General Chief complaint: Psychiatric Symptoms Stated complaint: mental health Time Seen by Provider: 02/11/20 19:57 Source: patient, RN notes reviewed Mode of arrival: ambulatory Limitations: no limitations - History of Present Illness Initial comments: Patient is a pleasant 34-year-old male presenting to the emergency Department with complaints of stress and anxiety. Patient has stressors regarding coronavirus as well as separation from mother. Patient denies suicidal or homicidal thoughts. Patient questions whether or not he is having some mild auditory hallucinations. Patient does feel a little bit paranoid. No alcohol or street drug use. No new physical complaints. - Related Data Previous Rx's Medication Instructions Recorded Paliperidone IM [Invega Sustenna] 234 mg IM DIRECTED #1 syr 08/07/19 Allergies Allergy/AdvReac Type Severity Reaction Status Date / Time quetiapine [From Seroquel] Allergy Unknown Verified 02/11/20 19:57 ziprasidone [From Geodon] Allergy Unknown Verified 02/11/20 19:57 Review of Systems ROS Statement: Those systems with pertinent positive or pertinent negative responses have been documented in the HPI. ROS Other: All systems not noted in ROS Statement are negative. Constitutional: Denies: fever Eyes: Denies: eye pain ENT: Denies: ear pain Respiratory: Denies: cough Cardiovascular: Denies: chest pain Endocrine: Denies: fatigue Gastrointestinal: Denies: abdominal pain Genitourinary: Denies: dysuria Musculoskeletal: Denies: back pain Skin: Denies: rash Neurological: Denies: weakness Psychiatric: Reports: as per HPI, anxiety Past Medical History Past Medical History: No Reported History Additional Past Medical History / Comment(s): Possible history of hypertension and used to be on Coreg. History of Any Multi-Drug Resistant Organisms: MRSA Date of last positivie culture/infection: 2017 MDRO Source:: right second finger. Past Surgical History: No Surgical Hx Reported Past Psychological History: Schizophrenia Past Alcohol Use History: Occasional Past Drug Use History: None Reported - Past Family History Father Family Medical History: No Reported History Mother Family Medical History: No Reported History General Exam Limitations: no limitations General appearance: alert, in no apparent distress Head exam: Present: normocephalic Eye exam: Present: normal appearance Neck exam: Present: normal inspection Respiratory exam: Present: normal lung sounds bilaterally Cardiovascular Exam: Present: regular rate, normal rhythm GI/Abdominal exam: Present: soft. Absent: tenderness Extremities exam: Present: normal inspection Neurological exam: Present: alert Psychiatric exam: Present: flat affect Skin exam: Present: normal color Course Vital Signs 02/11/20 19:55 Temperature 98.8 F Pulse Rate 102 H Respiratory 18 Rate Blood Pressure 155/82 O2 Sat by Pulse 98 Oximetry Medical Decision Making - Medical Decision Making Patient was seen by mental health services and still denies suicidal or homicidal thoughts. Mental health services will help arrange follow-up. Patient does already see [facility]. Disposition Clinical Impression: Acute anxiety Disposition: HOME SELF-CARE Condition: Stable Instructions (If sedation given, give patient instructions): Anxiety (ED) Additional Instructions: Please follow-up with mental health services as directed. Return for thoughts of self-harm, worsening symptoms or other concerns. Is patient prescribed a controlled substance at d/c from ED?: No Referrals: Robert Ortez MD [STAFF PHYSICIAN] - 1-2 days Time of Disposition: 20:51
[2020-02-11 21:30] VITALS: BP 149/79; PULSE 80; TEMP 97.7
== END 2020-02-11 21:30 | disposition home or self-care (01) ==
LOC: EC 19:53
DX: F41.9 Anxiety disorder, unspecified (principal); Z88.8 Allergy status to other drugs, medicaments and biological substances
CPT/HCPCS: 82075; 99284

== ENCOUNTER 2020-03-24 23:00 | Emergency (ER) | payer OTHER ==
[2020-03-24 23:10] VITALS: RESP 18
--- NOTE | 2020-03-25 01:05 | ED ---
General Adult HPI - General Chief complaint: Psychiatric Symptoms Stated complaint: Mental health Time Seen by Provider: 03/25/20 00:42 Source: patient Mode of arrival: ambulatory Limitations: no limitations - History of Present Illness Initial comments: 34-year-old male patient presents to the emergency department today reporting increased anxiety and panic attack. Patient states [facility] is [facility]. Patient states that he became very anxious there. States he started to hyperventilate and have a panic attack. Patient states that he left and drove here. Patient denies any current suicidal or homicidal ideations. Denies visual or auditory hallucinations. Denies alcohol use. States he occasionally smokes marijuana but did not have any today. Patient states he is now feeling better. And would like to be discharged home. He denies any current physical symptoms or concerns. - Related Data Previous Rx's Medication Instructions Recorded Paliperidone IM [Invega Sustenna] 234 mg IM DIRECTED #1 syr 08/07/19 Allergies Allergy/AdvReac Type Severity Reaction Status Date / Time quetiapine [From Seroquel] Allergy Unknown Verified 03/24/20 23:09 ziprasidone [From Geodon] Allergy Unknown Verified 03/24/20 23:09 Review of Systems ROS Statement: Those systems with pertinent positive or pertinent negative responses have been documented in the HPI. ROS Other: All systems not noted in ROS Statement are negative. Past Medical History Past Medical History: No Reported History Additional Past Medical History / Comment(s): Possible history of hypertension and used to be on Coreg. History of Any Multi-Drug Resistant Organisms: MRSA Date of last positivie culture/infection: 2017 MDRO Source:: right second finger. Past Surgical History: No Surgical Hx Reported Past Psychological History: Schizophrenia Smoking Status: Current some day smoker Past Alcohol Use History: Occasional Past Drug Use History: None Reported - Past Family History Father Family Medical History: No Reported History Mother Family Medical History: No Reported History General Exam Limitations: no limitations General appearance: alert, in no apparent distress, other (This is a well- developed, well-nourished adult male patient in no acute distress. Vital signs upon presentation are temperature 97.6F, pulse 92, respirations 18, blood pressure 153/91, pulse ox 98% on room air.) Respiratory exam: Present: normal lung sounds bilaterally. Absent: respiratory distress, wheezes, rales, rhonchi, stridor Cardiovascular Exam: Present: regular rate, normal rhythm, normal heart sounds. Absent: systolic murmur, diastolic murmur, rubs, gallop, clicks GI/Abdominal exam: Present: soft, normal bowel sounds. Absent: distended, tenderness, guarding, rebound, rigid Neurological exam: Present: alert, oriented X3, CN II-XII intact Psychiatric exam: Present: normal affect, normal mood Skin exam: Present: warm, dry, intact, normal color. Absent: rash Course Vital Signs 03/24/20 03/25/20 23:04 01:07 Temperature 97.6 F 97.0 F L Pulse Rate 92 83 Respiratory 18 18 Rate Blood Pressure 153/91 145/87 O2 Sat by Pulse 98 98 Oximetry Medical Decision Making - Medical Decision Making 34-year-old male patient presented to the emergency department today for evaluation of increased anxiety and panic attack. Physical examination is unremarkable. Denied suicidal or homicidal ideation. He has not drunk. Patient did request to be discharged home and declined any medications or treatment for his symptoms. He is discharged to follow up with outpatient mental health services. He is instructed to follow-up with his primary care physician for recheck in 1-2 days. Return parameters discussed in detail. He verbalizes understanding and agrees with this plan. Disposition Clinical Impression: Anxiety, Panic attack Disposition: HOME SELF-CARE Condition: Good Instructions (If sedation given, give patient instructions): Anxiety (ED), Panic Attack (ED) Additional Instructions: Follow-up with outpatient mental health services. Return to the emergency department immediately for any new, worsening, or concerning symptoms. Is patient prescribed a controlled substance at d/c from ED?: No Referrals: Tian Cotter [STAFF PHYSICIAN] - 1-2 days Time of Disposition: 01:05
[2020-03-25 01:17] VITALS: BP 145/87; PULSE 83; TEMP 97
== END 2020-03-25 01:17 | disposition home or self-care (01) ==
LOC: EC 23:00
DX: F41.0 Panic disorder [episodic paroxysmal anxiety] (principal); F17.200 Nicotine dependence, unspecified, uncomplicated; F12.90 Cannabis use, unspecified, uncomplicated; Z53.20 Procedure and treatment not carried out because of patient's decision for unspecified reasons; Z88.8 Allergy status to other drugs, medicaments and biological substances; Z86.14 Personal history of Methicillin resistant Staphylococcus aureus infection
CPT/HCPCS: 82075; 99283

== ENCOUNTER 2020-06-11 21:00 | Emergency (ER) | payer OTHER ==
--- NOTE | 2020-06-11 21:15 | ED ---
Psych HPI - General Chief Complaint: Psychiatric Symptoms Stated Complaint: Mental Health Time Seen by Provider: 06/11/20 21:13 Source: patient, police Mode of arrival: ambulatory - History of Present Illness Initial Comments: 34-year-old male with history of schizophrenia and depression presenting to the emergency department for psychiatric evaluation. Patient reports she is very stressed and is dealing with homelessness. Patient states that he is having "mental breakdown" due to significant stress. Patient states he was kicked out on April 25 from a [facility]. Patient also reports that all of his teeth are hurting because he has not been taking care of them. Patient denies any suicidal thoughts but does report homicidal thoughts with no one in particular. Patient has no other complaints. - Related Data Previous Rx's Medication Instructions Recorded Amoxicillin/Potassium Clav 1 tab PO Q12HR #20 tab 06/12/20 [Augmentin 875-125 Tablet] Ibuprofen [Motrin] 800 mg PO Q6HR #30 tab 06/12/20 Allergies Allergy/AdvReac Type Severity Reaction Status Date / Time quetiapine [From Seroquel] Allergy Unknown Verified 06/11/20 22:30 ziprasidone [From Geodon] Allergy Unknown Verified 06/11/20 22:30 Review of Systems ROS Statement: Those systems with pertinent positive or pertinent negative responses have been documented in the HPI. ROS Other: All systems not noted in ROS Statement are negative. Past Medical History Past Medical History: No Reported History Additional Past Medical History / Comment(s): Possible history of hypertension and used to be on Coreg. History of Any Multi-Drug Resistant Organisms: MRSA Date of last positivie culture/infection: 2017 MDRO Source:: right second finger. Past Surgical History: No Surgical Hx Reported Past Psychological History: Schizophrenia Smoking Status: Current some day smoker Past Alcohol Use History: Occasional Past Drug Use History: None Reported - Past Family History Father Family Medical History: No Reported History Mother Family Medical History: No Reported History General Exam Limitations: no limitations General appearance: alert, in no apparent distress, obese Head exam: Present: atraumatic, normocephalic, normal inspection Eye exam: Present: normal appearance, PERRL, EOMI Pupils: Present: normal accommodation ENT exam: Present: normal exam, normal oropharynx (Poor dentition. Plaque deposits throughout the teeth.), mucous membranes moist, TM's normal bilaterally, normal external ear exam Neck exam: Present: normal inspection, full ROM. Absent: tenderness Respiratory exam: Present: normal lung sounds bilaterally. Absent: respiratory distress, wheezes, rales, rhonchi, stridor, chest wall tenderness Cardiovascular Exam: Present: regular rate, normal rhythm, normal heart sounds. Absent: systolic murmur, diastolic murmur Extremities exam: Present: normal inspection, full ROM, normal capillary refill. Absent: tenderness, pedal edema, joint swelling, calf tenderness Back exam: Present: normal inspection, full ROM. Absent: tenderness, CVA tenderness (R), CVA tenderness (L) Neurological exam: Present: alert, oriented X3, normal gait Psychiatric exam: Present: normal affect, normal mood Skin exam: Present: warm, dry, intact, normal color Course Vital Signs 06/11/20 06/12/20 21:00 00:36 Temperature 98.2 F 98.9 F Pulse Rate 120 H 113 H Respiratory 16 18 Rate Blood Pressure 174/105 159/100 O2 Sat by Pulse 98 97 Oximetry Medical Decision Making - Medical Decision Making 34-year-old male presenting to emergency Department for psychiatric evaluation. Physical examination reveals poor dentition and plaque deposits throughout the teeth. He is having generalized teeth pain. Patient was given ibuprofen. Breath alcohol is 0. Urine drug screen unremarkable. After patient was given the ibuprofen, his symptoms improved. EPS evaluated patient and he is cleared to be discharged. Patient will be started on antibiotics for dental pain and discharged with ibuprofen. He was advised to follow with a dentist and given additional summation for budget dentist. Return parameters thoroughly discussed the patient was assisting agreeable. Case discussed physician. - Lab Data Lab Results 06/11/20 Range/Units 21:23 Urine Opiates Screen Not Detected (NotDetected) Ur Oxycodone Screen Not Detected (NotDetected) Urine Methadone Screen Not Detected (NotDetected) Ur Propoxyphene Screen Not Detected (NotDetected) Ur Barbiturates Screen Not Detected (NotDetected) U Tricyclic Antidepress Not Detected (NotDetected) Ur Phencyclidine Scrn Not Detected (NotDetected) Ur Amphetamines Screen Not Detected (NotDetected) U Methamphetamines Scrn Not Detected (NotDetected) U Benzodiazepines Scrn Not Detected (NotDetected) Urine Cocaine Screen Not Detected (NotDetected) U Marijuana (THC) Screen Not Detected (NotDetected) Disposition Clinical Impression: Adjustment reaction of adult life, Pain, dental Disposition: HOME SELF-CARE Condition: Stable Instructions (If sedation given, give patient instructions): Depression (DC) Additional Instructions: Follow up with [facility]. Return to emergency department if symptoms worsen. Prescriptions: Amoxicillin/Potassium Clav [Augmentin 875-125 Tablet] 1 tab PO Q12HR #20 tab Ibuprofen [Motrin] 800 mg PO Q6HR #30 tab Is patient prescribed a controlled substance at d/c from ED?: No Referrals: None,Stated [Primary Care Provider] - 1-2 days Time of Disposition: 00:03
[2020-06-11] MEDS ORDERED: IBUPROFEN 800 MG TAB PO STA (21:28)
[2020-06-11 21:54] LABS: Amphetamine Screen,Urine Not Detected (NotDetected); Barbiturate Screen,Urine Not Detected (NotDetected); Benzodiazepines Screen,Urine Not Detected (NotDetected); Cocaine Screen,Urine Not Detected (NotDetected); Methadone Screen, Urine Not Detected (NotDetected); Opiate Screen,Urine Not Detected (NotDetected); Oxycodone Screen, Urine Not Detected (NotDetected); Phencyclidine Screen,Urine Not Detected (NotDetected); Tricyclic Antidepressant,Urine Not Detected (NotDetected); Urn Cannabinoid Scrn Not Detected (NotDetected)
[2020-06-12 00:37] VITALS: BP 159/100; PULSE 113; RESP 18; TEMP 98.9
== END 2020-06-12 00:37 | disposition home or self-care (01) ==
LOC: EC 21:00
DX: F43.20 Adjustment disorder, unspecified (principal); K08.89 Other specified disorders of teeth and supporting structures; K03.6 Deposits [accretions] on teeth; F17.200 Nicotine dependence, unspecified, uncomplicated; Z88.8 Allergy status to other drugs, medicaments and biological substances; Z59.0 Homelessness
CPT/HCPCS: 80306; 82075; 99285

== ENCOUNTER 2020-10-12 23:57 | Emergency (ER) | payer OTHER ==
[2020-10-13 00:06] VITALS: BP 155/104; PULSE 98; RESP 18; TEMP 97.8
--- NOTE | 2020-10-13 00:15 | ED ---
Psych HPI - General Source: patient, EMS Mode of arrival: EMS <Julianne Waller - Last Filed: 10/13/20 01:29> <Praneeth Kinney - Last Filed: 10/13/20 05:12> - General Chief Complaint: Psychiatric Symptoms Stated Complaint: Mental Health Time Seen by Provider: 10/12/20 23:59 - History of Present Illness Initial Comments: 35yo male with hx of schizophrenia presenting to the ER for cc of mental break down. Pt states he feels psychotic and people are talking to him. he states he feels like he is close to a mental break down. denies suicidal nor homicidal attempts or thoughts. Pt denies physical complaints such as fever, chills, shortness of breath, chest pain, back pain, abdominal pain, nausea or vomiting, numbness or tingling, dysuria or hematuria, constipation or diarrhea, headaches or visual changes, or any other complaints. (Julianne Waller) - Related Data Previous Rx's Medication Instructions Recorded Amoxicillin/Potassium Clav 1 tab PO Q12HR #20 tab 06/12/20 [Augmentin 875-125 Tablet] Ibuprofen [Motrin] 800 mg PO Q6HR #30 tab 06/12/20 Allergies Allergy/AdvReac Type Severity Reaction Status Date / Time quetiapine [From Seroquel] Allergy Unknown Verified 06/11/20 22:30 ziprasidone [From Geodon] Allergy Unknown Verified 06/11/20 22:30 Review of Systems ROS Other: All systems not noted in ROS Statement are negative. <Julianne Waller - Last Filed: 10/13/20 01:29> ROS Other: All systems not noted in ROS Statement are negative. <Praneeth Kinney - Last Filed: 10/13/20 05:12> ROS Statement: Those systems with pertinent positive or pertinent negative responses have been documented in the HPI. Past Medical History Past Medical History: No Reported History Additional Past Medical History / Comment(s): Possible history of hypertension and used to be on Coreg. History of Any Multi-Drug Resistant Organisms: MRSA Date of last positivie culture/infection: 2018 MDRO Source:: right second finger. Past Surgical History: No Surgical Hx Reported Past Psychological History: Schizophrenia Smoking Status: Current some day smoker Past Alcohol Use History: Occasional Past Drug Use History: None Reported - Past Family History Father Family Medical History: No Reported History Mother Family Medical History: No Reported History <Julianne Waller - Last Filed: 10/13/20 01:29> General Exam <Julianne Waller - Last Filed: 10/13/20 01:29> - General Exam Comments Initial Comments: General: The patient is awake and alert, in no distress Eye: Pupils are equal, round and reactive to light, extra-ocular movements are intact. No nystagmus. There is normal conjunctiva bilaterally. No signs of icterus. Ears, nose, mouth and throat: There are moist mucous membranes and no oral lesions. Neck: The neck is supple, there is no tenderness or JVD. Cardiovascular: There is a regular rate and rhythm. No murmur, rub or gallop is appreciated. Respiratory: Lungs are clear to auscultation, respirations are non-labored, breath sounds are equal. No wheezes, stridor, rales, or rhonchi. Gastrointestinal: Soft, non-distended, non-tender abdomen without masses or organomegaly noted. There is no rebound or guarding present Musculoskeletal: Normal ROM, no tenderness. Strength 5/5. Sensation intact. Radial pulses equal bilaterally 2+. Neurological: A&O x 3. CN II-XII intact grossly, There are no obvious motor or sensory deficits. Coordination appears grossly intact. Speech is normal. Skin: Skin is warm and dry and no rashes or lesions are noted. Psychiatric: Cooperative, but flat affect, stares often (Julianne Waller) Course <MarckashaJulianne Luo - Last Filed: 10/13/20 01:29> <Praneeth Kinney - Last Filed: 10/13/20 05:12> Vital Signs 10/13/20 00:00 Temperature 97.8 F Pulse Rate 98 Respiratory 18 Rate Blood Pressure 155/104 O2 Sat by Pulse 97 Oximetry - Reevaluation(s) Reevaluation #1: ETOH (-), pt ROS (-). exam unremarkable physically. pt does have flat affect. Med clear for EPS evaluation. 10/13/20 01:30 (Julianne Waller) Reevaluation #2: 10/13/20 05:11 Medical clear for psychiatric evaluation (Praneeth Kinney) Medical Decision Making <Praneeth Kinney - Last Filed: 10/13/20 05:12> - Medical Decision Making 35 male who was seen and evaluated psychiatry, not currently homicidal or suicidal per patient can be discharged home (Praneeth Kinney) - Lab Data Lab Results 10/13/20 Range/Units 03:06 Urine Color Light Yellow Urine Appearance Clear (Clear) Urine pH 5.0 (5.0-8.0) Ur Specific [place] 1.010 (1.001-1.035) Urine Protein Negative (Negative) Urine Glucose (UA) Negative (Negative) Urine Ketones Negative (Negative) Urine Blood Negative (Negative) Urine Nitrite Negative (Negative) Urine Bilirubin Negative (Negative) Urine Urobilinogen <2.0 (<2.0) mg/dL Ur Leukocyte Esterase Negative (Negative) Urine Opiates Screen Not Detected (NotDetected) Ur Oxycodone Screen Not Detected (NotDetected) Urine Methadone Screen Not Detected (NotDetected) Ur Propoxyphene Screen Not Detected (NotDetected) Ur Barbiturates Screen Not Detected (NotDetected) U Tricyclic Antidepress Not Detected (NotDetected) Ur Phencyclidine Scrn Not Detected (NotDetected) Ur Amphetamines Screen Not Detected (NotDetected) U Methamphetamines Scrn Not Detected (NotDetected) U Benzodiazepines Scrn Not Detected (NotDetected) Urine Cocaine Screen Not Detected (NotDetected) U Marijuana (THC) Screen Not Detected (NotDetected) Disposition <Julianne Waller - Last Filed: 10/13/20 01:29> Is patient prescribed a controlled substance at d/c from ED?: No <Praneeth Kinney - Last Filed: 10/13/20 05:12> Clinical Impression: Schizophrenia, Depression Disposition: HOME SELF-CARE Condition: Fair Instructions (If sedation given, give patient instructions): Depression (ED) Referrals: None,Stated [Primary Care Provider] - 1-2 days
[2020-10-13 03:30] LABS: Appearance,Urine Clear (Clear); Bilirubin,Urine Negative (Negative); Blood,Urine Negative (Negative); Color,Urine Light Yellow; Glucose,Urine (UA) Negative (Negative); Ketones,Urine Negative (Negative); Leukocyte Esterase,Urine Negative (Negative); Nitrite,Urine Negative (Negative); Protein,Urine Negative (Negative); Urobilinogen,Urine <2.0 mg/dL (<2.0)
[2020-10-13 03:40] LABS: Amphetamine Screen,Urine Not Detected (NotDetected); Barbiturate Screen,Urine Not Detected (NotDetected); Benzodiazepines Screen,Urine Not Detected (NotDetected); Cocaine Screen,Urine Not Detected (NotDetected); Methadone Screen, Urine Not Detected (NotDetected); Opiate Screen,Urine Not Detected (NotDetected); Oxycodone Screen, Urine Not Detected (NotDetected); Phencyclidine Screen,Urine Not Detected (NotDetected); Tricyclic Antidepressant,Urine Not Detected (NotDetected); Urn Cannabinoid Scrn Not Detected (NotDetected)
== END 2020-10-13 05:20 | disposition home or self-care (01) ==
LOC: EC 23:57
DX: F20.9 Schizophrenia, unspecified (principal); F32.9 Major depressive disorder, single episode, unspecified; F17.200 Nicotine dependence, unspecified, uncomplicated
CPT/HCPCS: 80306; 81003; 82075; 99285

== ENCOUNTER 2020-10-21 19:27 | Emergency (ER) | payer OTHER ==
--- NOTE | 2020-10-21 21:22 | ED ---
General Adult HPI - General Source: patient, RN notes reviewed Mode of arrival: ambulatory Limitations: no limitations <Daniel Mota - Last Filed: 10/21/20 21:21> <Isiah Juares - Last Filed: 10/22/20 02:50> - General Chief complaint: Psychiatric Symptoms Stated complaint: Mental health Time Seen by Provider: 10/21/20 21:00 - History of Present Illness Initial comments: Patient is a pleasant 35-year-old male presenting to the emergency Department with depression. Patient states he is very stressed out. Patient states this is been going on for a few months. Patient is now homeless. Patient is discharged. Appetite. Patient is not sleeping well. No suicidal thoughts. Patient is not on any medication. (Daniel Mota) - Related Data Home Medications Medication Instructions Recorded Confirmed Cephalexin [Keflex] 500 mg PO Q8HR 10/21/20 10/21/20 Ibuprofen [Motrin] 600 mg PO Q8HR PRN 10/21/20 10/21/20 Paliperidone IM [Invega Sustenna] 234 mg IM Q30D 10/21/20 10/21/20 Allergies Allergy/AdvReac Type Severity Reaction Status Date / Time quetiapine [From Seroquel] Allergy Unknown Verified 10/21/20 22:26 ziprasidone [From Geodon] Allergy Unknown Verified 10/21/20 22:26 Review of Systems ROS Other: All systems not noted in ROS Statement are negative. Constitutional: Denies: fever Eyes: Denies: eye pain ENT: Denies: ear pain Respiratory: Denies: cough Cardiovascular: Denies: chest pain Endocrine: Denies: fatigue Gastrointestinal: Denies: abdominal pain Genitourinary: Denies: urgency Musculoskeletal: Denies: back pain Skin: Denies: rash Neurological: Denies: weakness Psychiatric: Reports: anxiety, depression <Daniel Mota - Last Filed: 10/21/20 21:21> ROS Other: All systems not noted in ROS Statement are negative. <Isiah Juares - Last Filed: 10/22/20 02:50> ROS Statement: Those systems with pertinent positive or pertinent negative responses have been documented in the HPI. Past Medical History Past Medical History: No Reported History Additional Past Medical History / Comment(s): Possible history of hypertension and used to be on Coreg. History of Any Multi-Drug Resistant Organisms: MRSA Date of last positivie culture/infection: 2018 MDRO Source:: right second finger. Past Surgical History: No Surgical Hx Reported Past Psychological History: Schizophrenia Smoking Status: Current some day smoker Past Alcohol Use History: Occasional Past Drug Use History: None Reported - Past Family History Father Family Medical History: No Reported History Mother Family Medical History: No Reported History <Daniel Mota - Last Filed: 10/21/20 21:21> General Exam Limitations: no limitations General appearance: alert, in no apparent distress Head exam: Present: atraumatic Eye exam: Present: normal appearance Neck exam: Present: normal inspection Respiratory exam: Present: normal lung sounds bilaterally Cardiovascular Exam: Present: regular rate, normal rhythm GI/Abdominal exam: Present: soft. Absent: tenderness Extremities exam: Present: normal inspection Neurological exam: Present: alert Psychiatric exam: Present: flat affect Skin exam: Present: normal color <Daniel Mota - Last Filed: 10/21/20 21:21> Course Vital Signs 10/21/20 20:59 Temperature 98.9 F Pulse Rate 97 Respiratory 18 Rate Blood Pressure 151/98 O2 Sat by Pulse 99 Oximetry Medical Decision Making <Isiah Juares - Last Filed: 10/22/20 02:50> - Medical Decision Making Care was signed out to me by Dr. Mota at 2100. EPS did evaluate patient. They state that patient is safety planning and are currently recommending discharge. Patient re-evaluated, again denying any suicidal thoughts. (Isiah Juares) - Lab Data Lab Results 10/21/20 Range/Units 21:36 Urine Opiates Screen Not Detected (NotDetected) Ur Oxycodone Screen Not Detected (NotDetected) Urine Methadone Screen Not Detected (NotDetected) Ur Propoxyphene Screen Not Detected (NotDetected) Ur Barbiturates Screen Not Detected (NotDetected) U Tricyclic Antidepress Not Detected (NotDetected) Ur Phencyclidine Scrn Not Detected (NotDetected) Ur Amphetamines Screen Not Detected (NotDetected) U Methamphetamines Scrn Not Detected (NotDetected) U Benzodiazepines Scrn Not Detected (NotDetected) Urine Cocaine Screen Not Detected (NotDetected) U Marijuana (THC) Screen Not Detected (NotDetected) Disposition <Daniel Mota - Last Filed: 10/21/20 21:21> Is patient prescribed a controlled substance at d/c from ED?: No Time of Disposition: 02:49 <Isiah Juares - Last Filed: 10/22/20 02:50> Clinical Impression: Depression Disposition: HOME SELF-CARE Condition: Good Instructions (If sedation given, give patient instructions): Depression (ED) Additional Instructions: Please follow up with primary care in 1-2 days. Return to the ER for any worsening symptoms. Referrals: Fred Lewis MD [REFERRING] - 1-2 days
[2020-10-21 22:30] LABS: Amphetamine Screen,Urine Not Detected (NotDetected); Barbiturate Screen,Urine Not Detected (NotDetected); Benzodiazepines Screen,Urine Not Detected (NotDetected); Cocaine Screen,Urine Not Detected (NotDetected); Methadone Screen, Urine Not Detected (NotDetected); Opiate Screen,Urine Not Detected (NotDetected); Oxycodone Screen, Urine Not Detected (NotDetected); Phencyclidine Screen,Urine Not Detected (NotDetected); Tricyclic Antidepressant,Urine Not Detected (NotDetected); Urn Cannabinoid Scrn Not Detected (NotDetected)
[2020-10-22 03:18] VITALS: BP 146/87; PULSE 100; RESP 16; TEMP 98.4
== END 2020-10-22 03:00 | disposition home or self-care (01) ==
LOC: EC 19:27
DX: F32.9 Major depressive disorder, single episode, unspecified (principal); F17.200 Nicotine dependence, unspecified, uncomplicated; Z95.0 Presence of cardiac pacemaker; Z88.8 Allergy status to other drugs, medicaments and biological substances
CPT/HCPCS: 80306; 82075; 99284

== ENCOUNTER 2020-11-10 20:17 | Inpatient (IN) | payer MEDICAID, OTHER ==
--- NOTE | 2020-11-10 21:12 | ED ---
Psych HPI - General Chief Complaint: Psychiatric Symptoms Stated Complaint: Mental Health Time Seen by Provider: 11/10/20 20:47 Source: patient Mode of arrival: ambulatory - History of Present Illness MD Complaint: suicidal ideation, feels depressed -: week(s) Associated Psychiatric Symptoms: depression History of same: Yes Quality: constant Improves With: none Worsens With: none Associated Symptoms: denies other symptoms - Related Data Home Medications Medication Instructions Recorded Confirmed No Known Home Medications 11/10/20 11/10/20 Allergies Allergy/AdvReac Type Severity Reaction Status Date / Time quetiapine [From Seroquel] Allergy Unknown Verified 11/10/20 21:30 ziprasidone [From Geodon] Allergy Unknown Verified 11/10/20 21:30 Review of Systems ROS Statement: Those systems with pertinent positive or pertinent negative responses have been documented in the HPI. ROS Other: All systems not noted in ROS Statement are negative. Constitutional: Denies: fever, chills Respiratory: Denies: cough, dyspnea Cardiovascular: Denies: chest pain, palpitations Gastrointestinal: Denies: abdominal pain, vomiting, diarrhea Genitourinary: Denies: dysuria Musculoskeletal: Denies: back pain Skin: Denies: rash Neurological: Denies: headache, weakness Psychiatric: Reports: depression, suicidal thoughts. Denies: auditory hallucinations, visual hallucinations, homicidal thoughts Past Medical History Past Medical History: No Reported History Additional Past Medical History / Comment(s): Possible history of hypertension and used to be on Coreg. History of Any Multi-Drug Resistant Organisms: MRSA Date of last positivie culture/infection: 2017 MDRO Source:: right second finger. Past Surgical History: No Surgical Hx Reported Past Psychological History: Schizophrenia Smoking Status: Current some day smoker Past Alcohol Use History: Occasional Past Drug Use History: None Reported - Past Family History Father Family Medical History: No Reported History Mother Family Medical History: No Reported History General Exam Limitations: no limitations General appearance: alert, in no apparent distress Head exam: Present: atraumatic, normocephalic Eye exam: Present: normal appearance. Absent: scleral icterus, conjunctival injection ENT exam: Present: normal oropharynx Neck exam: Present: normal inspection, full ROM Respiratory exam: Present: normal lung sounds bilaterally. Absent: respiratory distress, wheezes, rales, rhonchi, stridor Cardiovascular Exam: Present: regular rate, normal rhythm, normal heart sounds. Absent: systolic murmur, diastolic murmur, rubs, gallop GI/Abdominal exam: Present: soft. Absent: tenderness, guarding, rebound, rigid Extremities exam: Present: normal inspection, normal capillary refill. Absent: pedal edema, calf tenderness Neurological exam: Present: alert Psychiatric exam: Present: depressed, suicidal ideation. Absent: agitated, anxious, flat affect, manic, homicidal ideation Skin exam: Present: warm, dry, intact, normal color. Absent: rash Course Vital Signs 11/10/20 20:33 Temperature 98.4 F Pulse Rate 102 H Respiratory 18 Rate Blood Pressure 174/70 Medical Decision Making - Lab Data Lab Results 11/10/20 Range/Units Unknown Urine Opiates Screen Not Detected (NotDetected) Ur Oxycodone Screen Not Detected (NotDetected) Urine Methadone Screen Not Detected (NotDetected) Ur Propoxyphene Screen Not Detected (NotDetected) Ur Barbiturates Screen Not Detected (NotDetected) U Tricyclic Antidepress Not Detected (NotDetected) Ur Phencyclidine Scrn Not Detected (NotDetected) Ur Amphetamines Screen Not Detected (NotDetected) U Methamphetamines Scrn Not Detected (NotDetected) U Benzodiazepines Scrn Not Detected (NotDetected) Urine Cocaine Screen Not Detected (NotDetected) U Marijuana (THC) Screen Not Detected (NotDetected) Disposition Clinical Impression: Depression, Suicidal ideation Disposition: ADMITTED IP TO THIS [facility] Condition: Fair Is patient prescribed a controlled substance at d/c from ED?: No Referrals: None,Stated [Primary Care Provider] - 1-2 days
[2020-11-10 22:03] LABS: Amphetamine Screen,Urine Not Detected (NotDetected); Barbiturate Screen,Urine Not Detected (NotDetected); Benzodiazepines Screen,Urine Not Detected (NotDetected); Cocaine Screen,Urine Not Detected (NotDetected); Methadone Screen, Urine Not Detected (NotDetected); Opiate Screen,Urine Not Detected (NotDetected); Oxycodone Screen, Urine Not Detected (NotDetected); Phencyclidine Screen,Urine Not Detected (NotDetected); Tricyclic Antidepressant,Urine Not Detected (NotDetected); Urn Cannabinoid Scrn Not Detected (NotDetected)
[2020-11-11] MEDS ORDERED: ACETAMINOPHEN TAB 325 MG TAB PO PRN (00:36)
[2020-11-11] MEDS ORDERED: LORazepam 2 MG/ML INJ IM PRN (00:38)
[2020-11-11] MEDS ORDERED: HALOPERIDOL LACTATE 5 MG/ML 1 ML VIAL IM PRN (00:39)
[2020-11-11] MEDS ORDERED: haloperidoL 5 MG TAB PO PRN (00:39)
[2020-11-11] MEDS ORDERED: LORazepam 1 MG TAB PO PRN (00:43)
[2020-11-11] MEDS ORDERED: MAG HYDROX/AL HYDROX/SIMETH 30 ML CUP PO PRN (04:00)
[2020-11-11 08:57] LABS: Basophils # (A) 0.1 k/uL (0-0.2); Basophils % (A) 1 %; Eosinophils # (A) 0.3 k/uL (0-0.7); Eosinophils % (A) 3 %; HCT 48.2 % (39.0-53.0); HGB 16.6 gm/dL (13.0-17.5); Lymphocytes # (A) 2.8 k/uL (1.0-4.8); Lymphocytes % (A) 30 %; MCH 31.8 pg (25.0-35.0); MCHC 34.5 g/dL (31.0-37.0); MCV 92.3 fL (80.0-100.0); Mean Platelet Volume 7.4; Monocytes # (A) 0.4 k/uL (0-1.0); Monocytes % (A) 5 %; Neutrophils # (A) 5.4 k/uL (1.3-7.7); Neutrophils % (A) 60 %; Platelet Count 323 k/uL (150-450); RBC 5.23 m/uL (4.30-5.90); RDW 13.5 % (11.5-15.5); WBC 9.1 k/uL (3.8-10.6)
[2020-11-11] MEDS ORDERED: MAGNESIUM HYDROXIDE 2,400 MG/10 ML CUP PO PRN (09:00)
[2020-11-11 09:26] LABS: ALT 18 U/L (4-49); AST 26 U/L (17-59); African American GFR (CKD) >90 (>60 ml/min/1.73 sqM); Albumin 4.7 g/dL (3.5-5.0); Alkaline Phosphatase 82 U/L (38-126); Anion Gap 10 mmol/L; Blood Urea Nitrogen 11 mg/dL (9-20); Calcium 9.8 mg/dL (8.4-10.2); Carbon Dioxide 24 mmol/L (22-30); Chloride 102 mmol/L (98-107); Cholesterol 169 mg/dL (<200); Glucose 85 mg/dL (74-99); HDL Cholesterol 61 mg/dL (40-60); LDL Cholesterol,Calculated 90 mg/dL (0-99); Non-African American GFR(CKD) >90 (>60 ml/min/1.73 sqM); Potassium 4.2 mmol/L (3.5-5.1); Sodium 136 mmol/L (137-145); Total Bilirubin 0.8 mg/dL (0.2-1.3); Total Protein 7.7 g/dL (6.3-8.2); Triglycerides 92 mg/dL (<150)
[2020-11-11] MEDS: NICOTINE 14MG/24HR PATCH TRANSDERM SCH (11:10)
[2020-11-11] MEDS ORDERED: diphenhydrAMINE 25 MG CAP PO PRN (11:26)
--- NOTE | 2020-11-11 11:32 | P.HP ---
Psychiatric H&P - . H&P Date: 11/11/20 History & Physical: Allergies Allergy/AdvReac Type Severity Reaction Status Date / Time quetiapine From Seroquel Allergy Unknown Verified 11/11/20 02:02 ziprasidone From Geodon Allergy Unknown Verified 11/11/20 02:02 Vital Signs Temp 98.2 F 11/11/20 02:00 Pulse 89 11/11/20 02:00 Resp 18 11/11/20 02:00 BP 165/83 11/11/20 02:00 Pulse Ox 100 11/10/20 23:31 Intake & Output 11/10/20 11/11/20 11/11/20 18:59 06:59 18:59 Weight 84.6 kg Laboratory Last Values WBC 9.1 k/uL (3.8-10.6) 11/11/20 06:42 RBC 5.23 m/uL (4.30-5.90) 11/11/20 06:42 Hgb 16.6 gm/dL (13.0-17.5) 11/11/20 06:42 Hct 48.2 % (39.0-53.0) 11/11/20 06:42 MCV 92.3 fL (80.0-100.0) 11/11/20 06:42 MCH 31.8 pg (25.0-35.0) 11/11/20 06:42 MCHC 34.5 g/dL (31.0-37.0) 11/11/20 06:42 RDW 13.5 % (11.5-15.5) 11/11/20 06:42 Plt Count 323 k/uL (150-450) 11/11/20 06:42 MPV 7.4 11/11/20 06:42 Neutrophils % 60 % 11/11/20 06:42 Lymphocytes % 30 % 11/11/20 06:42 Monocytes % 5 % 11/11/20 06:42 Eosinophils % 3 % 11/11/20 06:42 Basophils % 1 % 11/11/20 06:42 Neutrophils # 5.4 k/uL (1.3-7.7) 11/11/20 06:42 Lymphocytes # 2.8 k/uL (1.0-4.8) 11/11/20 06:42 Monocytes # 0.4 k/uL (0-1.0) 11/11/20 06:42 Eosinophils # 0.3 k/uL (0-0.7) 11/11/20 06:42 Basophils # 0.1 k/uL (0-0.2) 11/11/20 06:42 Sodium 136 mmol/L (137-145) L 11/11/20 06:42 Potassium 4.2 mmol/L (3.5-5.1) 11/11/20 06:42 Chloride 102 mmol/L (98-107) 11/11/20 06:42 Carbon Dioxide 24 mmol/L (22-30) 11/11/20 06:42 Anion Gap 10 mmol/L 11/11/20 06:42 BUN 11 mg/dL (9-20) 11/11/20 06:42 Creatinine 0.92 mg/dL (0.66-1.25) 11/11/20 06:42 Est GFR (CKD-EPI)AfAm >90 (>60 ml/min/1.73 sqM) 11/11/20 06:42 Est GFR (CKD-EPI)NonAf >90 (>60 ml/min/1.73 sqM) 11/11/20 06:42 Glucose 85 mg/dL (74-99) 11/11/20 06:42 Calcium 9.8 mg/dL (8.4-10.2) 11/11/20 06:42 Total Bilirubin 0.8 mg/dL (0.2-1.3) 11/11/20 06:42 AST 26 U/L (17-59) 11/11/20 06:42 ALT 18 U/L (4-49) 11/11/20 06:42 Alkaline Phosphatase 82 U/L (38-126) 11/11/20 06:42 Total Protein 7.7 g/dL (6.3-8.2) 11/11/20 06:42 Albumin 4.7 g/dL (3.5-5.0) 11/11/20 06:42 Triglycerides 92 mg/dL (<150) 11/11/20 06:42 Cholesterol 169 mg/dL (<200) 11/11/20 06:42 LDL Cholesterol, Calc 90 mg/dL (0-99) 11/11/20 06:42 HDL Cholesterol 61 mg/dL (40-60) H 11/11/20 06:42 TSH 5.170 mIU/L (0.465-4.680) H 11/11/20 06:42 Urine Opiates Screen Not Detected (NotDetected) 11/10/20 Unknown Ur Oxycodone Screen Not Detected (NotDetected) 11/10/20 Unknown Urine Methadone Screen Not Detected (NotDetected) 11/10/20 Unknown Ur Propoxyphene Screen Not Detected (NotDetected) 11/10/20 Unknown Ur Barbiturates Screen Not Detected (NotDetected) 11/10/20 Unknown U Tricyclic Antidepress Not Detected (NotDetected) 11/10/20 Unknown Ur Phencyclidine Scrn Not Detected (NotDetected) 11/10/20 Unknown Ur Amphetamines Screen Not Detected (NotDetected) 11/10/20 Unknown U Methamphetamines Scrn Not Detected (NotDetected) 11/10/20 Unknown U Benzodiazepines Scrn Not Detected (NotDetected) 11/10/20 Unknown Urine Cocaine Screen Not Detected (NotDetected) 11/10/20 Unknown U Marijuana (THC) Screen Not Detected (NotDetected) 11/10/20 Unknown Coronavirus (PCR) Not Detected (Not Detectd) 11/10/20 22:52 11/11/20 11:16 IDENTIFYING DATA: Patient is a 35-year-old -[place] male who is currently homeless has a public guardian and a history of schizoaffective disorder. HPI: Patient presented to the hospital yesterday for complaints of depression and suicidal thoughts. According to EPS report, patient claimed that he is homeless and also helpless and was unable to get his Invega Sustenna injection from [facility]. Patient was mentioning thoughts of suicide and came in for help. According to EPS report patient's last dose of Invega Sustenna was on October 21. Patient was seen today by caption writer however patient wanted to speak in the hallway as he did not trust caption writer to speak in his room or the office. Patient was appearing to be fairly cooperative with caption writer and spoke in in a soft tone always. He states that he was having a "mental breakdown". He states that he was feeling suicidal as well and came to the hospital. He states that he has been dealing with homelessness for 1 year and spoke about problems with his guardian and not getting housing. He states that he has had a "lot on my mind". He claims that he has been off of Invega Sustenna "for a while" and mentioned many months of being off the medication. He states that he is still feeling depressed today and anxious. He claims that his sleep is fair and his appetite is fair. He was again agreeable to start medications. Patient denies any current suicidal or homicidal ideations intent or plan. He states that he was hearing voices however did not describe what they were telling him. He denies any visual hallucinations. Patient denies any flight of ideas racing thoughts and increased in goal directed behavior. Patient admits to using cigarettes daily however denies any other recreational drug use. PAST PSYCHIATRIC HISTORY: Patient states that she is a history of schizoaffective disorder. Patient was previously on Invega Sustenna however it is unknown the last injection dose that he is received from [facility]. Patient was last psychiatrically hospitalized on the mental health unit in June 2019. He states that he is to go to [facility] however has not followed up in quite some time. Patient denies any history of suicide attempts in the past. PMH:denies ALLERGIES: as per EMR CHEMICAL DEPENDENCY HISTORY: as per HPI FAMILY PSYCHIATRIC/SUBSTANCE USE HISTORY: denies SOCIAL HISTORY: Patient was born and raised in [place]. He states that he completed up to 11th grade. He claims that he dropped out of high school afterwards. He states that he did not work after high school and is currently collecting Social Security. He has a public guardian. He denies having any kids and is unmarried. He states that he is currently homeless. He claims that he has been jailed in the past however cannot remember what charges he's had. MENTAL STATUS EXAM: General Appearance: Patient appears to be well-built, stated age is alert, several tattoos, directable, and attempts to cooperate. Suspicious of caption writer. Patient appears to have poor hygiene and grooming. Behavior: Patient is seated without any agitated behavior. Suspicious of caption writer Speech: Patient's speech is fluent and nonpressured. Mood/Affect: Patient reports their mood is depressed and anxious, affect is congruent and constricted. Suicidality/Homicidality: Patient denies having any homicidal ideation intent or plan. Denies any suicidal ideations intent or plan Perceptions: Patient denies any visual hallucinations he states that he is hearing voices. Though content/process: [place], poverty of content. Not endorsing delusions. Mildly paranoid. Memory and concentration: AOX3, grossly intact for the purposes of this session. Can spell "WORLD" backwards Judgment and insight: poor STRENGTHS/WEAKNESSES: strength is that patient is resilient. Weakness is that patient has poor judgment and has chronic mental illness INTELLECT: average IMPRESSIONS: Schizoaffective disorder, depressive type Homelessness Nicotine dependence PLAN: -Patient is admitted under voluntary status to MHU for stabilization of psychiatric symptoms and safety. Patient has signed adult voluntary form and is placed in patient's chart. -Medications : Will start patient on paliperidone 3 mg daily at bedtime for psychosis. We'll attempt to confirm with [facility] when patient's last Invega Sustenna dose was received and what the dose was. Started Zoloft 50 mg daily for mood/anxiety. -Ativan and Haldol PRN for agitation/aggression -Patient was informed of the risks, benefits and side effects of the medication and patient verbally consented to taking the medications. Patient signed med consent form and was placed in chart. -Internal Medicine consult to perform medical evaluation and physical. -NRT - nicotine patch -SW on board for discharge planning. Encourage patient to participate in groups to work on coping skills.
[2020-11-11] MEDS: SERTRALINE 50 MG TAB PO SCH (12:13)
--- NOTE | 2020-11-11 15:02 | P.HPIM ---
History of Present Illness H&P Date: 11/11/20 History of presenting illness: Patient is a 35-year-old male with a past medical history of schizoaffective disorder and nicotine dependence. He is currently admitted in the inpatient mental health unit secondary to reports of increased depression and suicidal ideations. We have been consulted to follow along with admitting psychiatry team for continued medical management. Upon assessment, patient alert and oriented but was somewhat withdrawn/guarded throughout assessment. Patient reports feeling depressed and hopeless and having suicidal ideations. He reports to smoking 1-2 packs of cigarettes daily and occasional marijuana use. Patient denies having any other drug use including cocaine, methamphetamines, or heroin. He denies alcohol use. He denies having any headache, lightheadedness, dizziness, chest pain, palpitations, abdominal pain, nausea, vomiting, changes in or difficulties with appetite, or experiencing any numbness/tingling/weakness in his extremities. Review of systems: Pertinent positives and negatives as discussed in HPI, a complete review of systems was performed and all other systems are negative. Physical exam: General: non toxic, no distress, appears at stated age Derm: warm, dry Head: atraumatic, normocephalic, symmetric Eyes: EOMI, no lid lag, anicteric sclera Mouth: no lip lesion, mucus membranes moist Cardiovascular: S1S2 reg, no murmur, positive posterior tibial pulse bilateral ly. Lungs: CTA bilateral, no rhonchi, no rales , no accessory muscle use Abdominal: soft, nontender to palpation, no guarding, no appreciable organomegaly Ext: no gross muscle atrophy, no edema, no contractures Neuro: CN II-XI grossly intact, no focal neuro deficits Psych: Alert, oriented, withdrawn or guarded affect. Paranoid behaviors. Assessment and Plan of care: Depression with suicidal ideations -Suicide precautions. -Management per primary admitting psychiatric team. Nicotine dependence -Nicotine patch -Continued encouragement and education on the benefits of smoking cessation and the risks of continued use up to and including . Thank you for allowing us to participate in the care of this pleasant patient. Do not hesitate to contact us with questions. We will follow on an as-needed basis, RN to notify provider with needs. Someone can be reached from the [facility] hospitalist group all hours of the day at [phone] or via perfect serve. Past Medical History Past Medical History: No Reported History Additional Past Medical History / Comment(s): Possible history of hypertension and used to be on Coreg. History of Any Multi-Drug Resistant Organisms: MRSA Date of last positivie culture/infection: 2017 MDRO Source:: right second finger. Past Surgical History: No Surgical Hx Reported Past Psychological History: Schizophrenia Smoking Status: Current some day smoker Past Alcohol Use History: Occasional Past Drug Use History: None Reported - Past Family History Father Family Medical History: No Reported History Mother Family Medical History: No Reported History Medications and Allergies Home Medications Medication Instructions Recorded Confirmed Type No Known Home Medications 11/10/20 11/10/20 History Allergies Allergy/AdvReac Type Severity Reaction Status Date / Time quetiapine [From Seroquel] Allergy Unknown Verified 11/11/20 02:02 ziprasidone [From Geodon] Allergy Unknown Verified 11/11/20 02:02 Physical Exam Vitals: Vital Signs Temp Pulse Pulse Resp BP BP Pulse Ox 11/11/20 02:00 98.2 F 89 18 165/83 11/10/20 23:31 75 16 161/89 100 11/10/20 20:33 98.4 F 102 H 18 174/70 Intake and Output 11/10/20 11/11/20 11/11/20 22:59 06:59 14:59 Other: Weight 86.636 kg 84.6 kg Results CBC & Chem 7: 11/11/20 06:42 11/11/20 06:42 Labs: Abnormal Lab Results - Last 24 Hours (Table) 11/11/20 Range/Units 06:42 Sodium 136 L (137-145) mmol/L HDL Cholesterol 61 H (40-60) mg/dL TSH 5.170 H (0.465-4.680) mIU/L
[2020-11-11 17:08] LABS: Hemoglobin A1C 5.6 % (4.0-6.0)
[2020-11-11] MEDS: PALIPERIDONE 3 MG TAB.ER.24 PO SCH (21:16)
[2020-11-12] MEDS: SERTRALINE 50 MG TAB PO SCH (08:54)
[2020-11-12] MEDS: NICOTINE 14MG/24HR PATCH TRANSDERM SCH (08:55)
--- NOTE | 2020-11-12 09:04 | P.PN ---
Progress Note - Text Progress Note Date: 11/12/20 Interval History: Patient was seen wandering the hallways and was directable and agreeable to sp eak with appeals writer however wanted to speak in the hallways. He continues to be concrete in her poverty of content. He mentioned no overnight complaints and states that he slept okay. He claims that he has been taking his medications and feels "a bit better". Today he states that his depression has been improving along with his anxiety. He claims that he has not been going to groups however did not give a reason why. He was asking about discharge. When appeals writer spoke about compliance of medications and long-acting injection patient states "only take it if I have to". At this time patient denies any suicidal or homical ideations, intent or plan. Patient denies any auditory, visual hallucinations. He continues to be paranoid at times. Patient denies any side effects from the medications and has been compliant with meds. Mental Status Exam: General Appearance: Patient appears to be well-built, stated age is alert, several tattoos, directable, and attempts to cooperate. Suspicious of appeals writer. Patient appears to have improving hygiene and grooming. Behavior: Patient is seated without any agitated behavior. Suspicious of appeals writer however attempts to cooperate. Speech: Patient's speech is fluent and nonpressured. Mood/Affect: Patient reports their mood is "a bit better", affect is congruent and constricted. Suicidality/Homicidality: Patient denies having any homicidal ideation intent or plan. Denies any suicidal ideations intent or plan Perceptions: Patient denies any visual hallucinations he states that he is hearing voices. Though content/process: [place], poverty of content. Not endorsing delusions. Mildly paranoid. Memory and concentration: AOX3, grossly intact for the purposes of this session. Judgment and insight: Chronically poor, improving mildly Assessment Schizoaffective disorder, depressive type Homelessness Nicotine dependence Plan: -Patient continues to meet criteria for inpatient psychiatric admission for symptom stabilization and safety. Patient has signed adult voluntary form and was placed in patient's chart. -Medications: Continue with paliperidone by mouth 3 mg daily at bedtime for psychosis. We'll attempt to confirm with [facility] when patient's last Invega Sustenna dose was received and what the dose was. Continue Zoloft 50 mg daily for mood/anxiety. -When necessary Ativan and Haldol for agitation/aggression. -NRT - nicotine patch -SW on board for discharge planning. Encouraged the patient to participate in milieu. Will need to give patient a long-acting injection prior to discharge to ensure compliance.
[2020-11-12] MEDS: PALIPERIDONE 3 MG TAB.ER.24 PO SCH (20:36)
[2020-11-13] MEDS: SERTRALINE 50 MG TAB PO SCH (08:11)
[2020-11-13] MEDS: NICOTINE 14MG/24HR PATCH TRANSDERM SCH (08:11)
--- NOTE | 2020-11-13 10:02 | P.PN ---
Progress Note - Text Progress Note Date: 11/13/20 Interval History: Patient was seen sitting in his room this morning and was directable and agree able to speak with field underwriter however wanted to speak in the hallway once again. He continues to be concrete in her poverty of content and offered no overnight complaints. He states that he was able to sleep fairly last night. He claims that he has been taking his medications and denied any complaints of the medications. He states that overall he is doing "okay". Today he states that his depression has been improving along with his anxiety. He claims that he has not been going to groups once again. Patient has been noted to be pacing the hallways at times and standing against the wall and a threatening pose. Manager Games spoke with patient about the need for a long-acting injection and patient was agreeable to receive this tomorrow. At this time patient denies any suicidal or homical ideations, intent or plan. Patient denies any auditory, visual hallucinations. Paranoia improving. Patient denies any side effects from the medications and has been compliant with meds. Mental Status Exam: General Appearance: Patient appears to be well-built, stated age is alert, several tattoos, directable, and attempts to cooperate. Patient appears to have improving hygiene and grooming. Behavior: Patient is seated without any agitated behavior. Less suspicious of field underwriter. Attempts to cooperate today. Speech: Patient's speech is fluent and nonpressured. Mood/Affect: Patient reports their mood is "better", affect is congruent and constricted. Suicidality/Homicidality: Patient denies having any homicidal ideation intent or plan. Denies any suicidal ideations intent or plan Perceptions: Patient denies any visual hallucinations he states that he is hearing voices. Though content/process: [place], poverty of content. Not endorsing delusions. Memory and concentration: AOX3, grossly intact for the purposes of this session. Judgment and insight: Chronically poor, improving mildly Assessment Schizoaffective disorder, depressive type Homelessness Nicotine dependence Plan: -Patient continues to meet criteria for inpatient psychiatric admission for symptom stabilization and safety. Patient has signed adult voluntary form and was placed in patient's chart. -Medications: Increased paliperidone by mouth 6 mg daily at bedtime for psychosis. Will give Invega Sustenna tomorrow loading dose. According to [facility] liaison, patient has not been seen by [facility] since July 2020 and at that time was his last injection given. Continue Zoloft 50 mg daily for mood/anxiety. -When necessary Ativan and Haldol for agitation/aggression. -NRT - nicotine patch - on board for discharge planning. Encouraged the patient to participate in milieu. Will need to give patient a long-acting injection prior to discharge to ensure compliance. liekly discharge wednesday. PAtient is homeless
[2020-11-13] MEDS: PALIPERIDONE 6 MG TAB.ER.24 PO SCH (21:30)
[2020-11-14] MEDS: NICOTINE 14MG/24HR PATCH TRANSDERM SCH (08:37)
[2020-11-14] MEDS: SERTRALINE 50 MG TAB PO SCH (08:37)
--- NOTE | 2020-11-14 09:11 | P.PN ---
Progress Note - Text Progress Note Date: 11/14/20 Interval History: Patient was seen sitting in his room this morning and was directable and agree able to speak with group underwriter however wanted to speak in his room. He continues to be concrete in her poverty of content. He once again offered no overnight complaints. He states that he was able to sleep fairly last night and did not offer any complaints with his sleep. He claims that he has been taking his medications. He was asking about potential discharge today. He also was inquiring about his follow-up appointment and intake with [facility]. He states that he is doing "fine" today overall. He is denying any depression or anxiety today. He claims that he has not been going to groups once again and has no interest going. Satellite Instruction Facilitator once again spoke with patient about the need for long-acting injection and patient was agreeable to take it today. At this time patient denies any suicidal or homical ideations, intent or plan. Patient denies any auditory, visual hallucinations. Paranoia improving. Patient denies any side effects from the medications and has been compliant with meds. Mental Status Exam: General Appearance: Patient appears to be well-built, stated age is alert, several tattoos, directable, and attempts to cooperate. Patient appears to have improving hygiene and grooming. Behavior: Patient is seated without any agitated behavior. Less suspicious of group underwriter. Attempts to cooperate today. Speech: Patient's speech is fluent and nonpressured. [place] Mood/Affect: Patient reports their mood is "ok", affect is congruent and constricted. Suicidality/Homicidality: Patient denies having any homicidal ideation intent or plan. Denies any suicidal ideations intent or plan Perceptions: Patient denies any visual hallucinations he states that he is hearing voices. Though content/process: [place], poverty of content. Not endorsing delusions. Memory and concentration: AOX3, grossly intact for the purposes of this session. Judgment and insight: Chronically poor, improving mildly Assessment Schizoaffective disorder, depressive type Homelessness Nicotine dependence Plan: -Patient continues to meet criteria for inpatient psychiatric admission for symptom stabilization and safety. Patient has signed adult voluntary form and was placed in patient's chart. -Medications: Continue with paliperidone by mouth 6 mg daily at bedtime for psychosis. Will give Invega Sustenna tomorrow loading today. According to [facility] liaison, patient has not been seen by [facility] since July 2020 and at that time was his last injection given. Continue Zoloft 50 mg daily for mood/anxiety. -When necessary Ativan and Haldol for agitation/aggression. -NRT - nicotine patch -SW on board for discharge planning. Encouraged the patient to participate in milieu. Patient will have his [facility] intake completed tomorrow morning on the unit prior to discharge tomorrow.
[2020-11-14] MEDS ORDERED: PALIPERIDONE IM 234 MG/1.5 ML SYG IM ONE (12:00)
[2020-11-14] MEDS: PALIPERIDONE 6 MG TAB.ER.24 PO SCH (21:12)
[2020-11-15 06:49] VITALS: BP 130/64; PULSE 71; RESP 16; TEMP 97.3
[2020-11-15] MEDS: NICOTINE 14MG/24HR PATCH TRANSDERM SCH (08:52)
[2020-11-15] MEDS: SERTRALINE 50 MG TAB PO SCH (08:52)
--- NOTE | 2020-11-15 10:18 | P.DS ---
Providers Date of admission: 11/11/20 00:35 Expected date of discharge: 11/15/20 Attending physician: Montana Saleh MD Consults: 11/11/20 00:36 Consult Physician Routine Consulting Provider: Arun Draper Consult Reason/Comments: H&P for mental health admission Do you want consulting provider notified?: Yes Primary care physician: Stated None - Discharge Diagnosis(es) (1) Schizoaffective disorder, depressive type Current Visit: Yes Status: Acute Priority: High (2) Homelessness Current Visit: Yes Status: Acute Priority: Medium (3) Nicotine dependence Current Visit: Yes Status: Acute Priority: Low Hospital Course: Admission HPI: Admission note was completed by account underwriter "Patient is a 35-year-old - Burmese male who is currently homeless has a public guardian and a history of schizoaffective disorder. Patient presented to the hospital yesterday for complaints of depression and suicidal thoughts. According to EPS report, patient claimed that he is homeless and also helpless and was unable to get his Invega Sustenna injection from [facility]. Patient was mentioning thoughts of suicide and came in for help. According to EPS report patient's last dose of Invega Sustenna was on October 21. Patient was seen today by account underwriter however patient wanted to speak in the hallway as he did not trust account underwriter to speak in his room or the office. Patient was appearing to be fairly cooperative with account underwriter and spoke in in a soft tone always. He states that he was having a "mental breakdown". He states that he was feeling suicidal as well and came to the hospital. He states that he has been dealing with homelessness for 1 year and spoke about problems with his guardian and not getting housing. He states that he has had a "lot on my mind". He claims that he has been off of Invega Sustenna "for a while" and mentioned many months of being off the medication. He states that he is still feeling depressed today and anxious. He claims that his sleep is fair and his appetite is fair. He was again agreeable to start medications. Patient denies any current suicidal or homicidal ideations intent or plan. He states that he was hearing voices however did not describe what they were telling him. He denies any visual hallucinations. Patient denies any flight of ideas racing thoughts and increased in goal directed behavior. Patient admits to using cigarettes daily however denies any other recreational drug use." Hospital course: Upon admission to the unit patient was initially psychotic and depressed. Patient was however directable and agreeable to commence treatment and signed adult voluntary form. Patient got along well with other patients on the unit and followed unit protocol. Patient was compliant with the medications and denied any side effects throughout hospital course. Patient was started on polyp Laurie and titrated up to dose of 6 mg by mouth daily for psychosis. Patient was transitioned onto Invega Sustenna and given a loading dose of 234 mg IM on 11/14/20. Patient will be due for his next dose of 156 mg IM on 11/21/20 and the monthly dose of 117 mg on 12/12/20. Patient was also started on Zoloft 50 mg daily for mood/anxiety. Patient spoke of his stressors during individual therapy however did not attend group therapy/activities. Patient was also seen by medical team for history and physical exam. Throughout the course of the hospitalization patient gradually improved with regards to mood, psychosis, sleep and return back to his baseline level of functioning. On the day of discharge patient denied any suicidal or homicidal ideations intent or plan denied any auditory or visual hallucinations. Patient endorsed wanting to live for is future and his health. The patient denied any access to guns or weapons. Patient denied any paranoia and did not endorse any delusions. Patient does not have a significant history of substance abuse however was counseled on abstaining from all substances including alcohol and marijuana. Patient was also counseled on the medications and need for regular compliance and was encouraged to follow-up with their outpatient appointment for mental health and also for primary care. Patient is currently homeless and has a guardian. motion picture set up worker will attempt to look for temporary housing options for patient today through the guardian as the shelters are currently closed due to a covid- 19 outbreak Mental status exam: General Appearance: Patient appears to be well built, stated age, has multiple tattoos, is alert, pleasant, and cooperative. Patient is in no acute distress and has improved hygiene and grooming Behavior: Patient is calmly seated without any agitated behavior. Speech: Patient's speech is fluent and nonpressured. Clymer Mood/Affect: Patient reports their mood is "better", affect is congruent Suicidality/Homicidality: Patient denies having any suicidal or homicidal ideation intent or plan. Perceptions: Patient denies any auditory or visual hallucinations. Though content/process: There is no evidence of any delusional thought content and thought process is linear and goal-directed. Clymer. Memory and concentration: AOX3, grossly intact for the purposes of this session. Can spell "WORLD" backwards correctly. Judgment and insight: chronically poor, however has improved with guarded prognosis Impression: Schizoaffective disorder depressive type Homelessness Nicotine dependence Plan: -Continue with discharge today as patient has improved and stabilized psychiatrically and is not currently an imminent threat to himself and/or others. Patient will remain at chronically elevated risk for harm to self and/or others due to his chronically poor insight and judgment due to his severe mental illness. -Continue medications: Continue with Zoloft 50 mg daily/anxiety. Continue with paliperidone 6 mg by mouth for 4 more days daily at bedtime then discontinue. Patient was transitioned onto Invega Sustenna and given a loading dose of 234 mg IM on 11/14/20. Patient will be due for his next dose of 156 mg IM on 11/21/20 and the monthly dose of 117 mg on 12/12/20. -Patient was counseled on the need for medication compliance and appropriate follow-up at mental health and also primary care for medical issues. Patient verbalized understanding and agreed. -Social work to coordinate with guardian a housing options for patient to be discharged today as the patient is currently homeless and the [place] [facility] is currently closed due to covid-19. Social work also to arrange for patients follow up appointments with [facility] for psychiatric care along with follow up with primary care provider. -Patient counseled on abstaining from recreational drugs and marijuana and alcohol. Was informed/educated on the adverse effects on their physical and mental health. Patient verbally agreed and understood. -Patient was instructed to return to the hospital or seek immediate medical care if their psychiatric or medical symptoms do worsen or reoccur. Allergies Allergy/AdvReac Type Severity Reaction Status Date / Time quetiapine [From Seroquel] Allergy Unknown Verified 11/11/20 02:02 ziprasidone [From Geodon] Allergy Unknown Verified 11/11/20 02:02 Laboratory Results WBC 9.1 k/uL (3.8-10.6) 11/11/20 06:42 RBC 5.23 m/uL (4.30-5.90) 11/11/20 06:42 Hgb 16.6 gm/dL (13.0-17.5) 11/11/20 06:42 Hct 48.2 % (39.0-53.0) 11/11/20 06:42 MCV 92.3 fL (80.0-100.0) 11/11/20 06:42 MCH 31.8 pg (25.0-35.0) 11/11/20 06:42 MCHC 34.5 g/dL (31.0-37.0) 11/11/20 06:42 RDW 13.5 % (11.5-15.5) 11/11/20 06:42 Plt Count 323 k/uL (150-450) 11/11/20 06:42 MPV 7.4 11/11/20 06:42 Neutrophils % 60 % 11/11/20 06:42 Lymphocytes % 30 % 11/11/20 06:42 Monocytes % 5 % 11/11/20 06:42 Eosinophils % 3 % 11/11/20 06:42 Basophils % 1 % 11/11/20 06:42 Neutrophils # 5.4 k/uL (1.3-7.7) 11/11/20 06:42 Lymphocytes # 2.8 k/uL (1.0-4.8) 11/11/20 06:42 Monocytes # 0.4 k/uL (0-1.0) 11/11/20 06:42 Eosinophils # 0.3 k/uL (0-0.7) 11/11/20 06:42 Basophils # 0.1 k/uL (0-0.2) 11/11/20 06:42 Sodium 136 mmol/L (137-145) L 11/11/20 06:42 Potassium 4.2 mmol/L (3.5-5.1) 11/11/20 06:42 Chloride 102 mmol/L (98-107) 11/11/20 06:42 Carbon Dioxide 24 mmol/L (22-30) 11/11/20 06:42 Anion Gap 10 mmol/L 11/11/20 06:42 BUN 11 mg/dL (9-20) 11/11/20 06:42 Creatinine 0.92 mg/dL (0.66-1.25) 11/11/20 06:42 Est GFR (CKD-EPI)AfAm >90 (>60 ml/min/1.73 sqM) 11/11/20 06:42 Est GFR (CKD-EPI)NonAf >90 (>60 ml/min/1.73 sqM) 11/11/20 06:42 Glucose 85 mg/dL (74-99) 11/11/20 06:[address] Glu mg/dL 114 11/11/20 06:42 Hemoglobin A1c 5.6 % (4.0-6.0) 11/11/20 06:42 Calcium 9.8 mg/dL (8.4-10.2) 11/11/20 06:42 Total Bilirubin 0.8 mg/dL (0.2-1.3) 11/11/20 06:42 AST 26 U/L (17-59) 11/11/20 06:42 ALT 18 U/L (4-49) 11/11/20 06:42 Alkaline Phosphatase 82 U/L (38-126) 11/11/20 06:42 Total Protein 7.7 g/dL (6.3-8.2) 11/11/20 06:42 Albumin 4.7 g/dL (3.5-5.0) 11/11/20 06:42 Triglycerides 92 mg/dL (<150) 11/11/20 06:42 Cholesterol 169 mg/dL (<200) 11/11/20 06:42 LDL Cholesterol, Calc 90 mg/dL (0-99) 11/11/20 06:42 HDL Cholesterol 61 mg/dL (40-60) H 11/11/20 06:42 TSH 5.170 mIU/L (0.465-4.680) H 11/11/20 06:42 Urine Opiates Screen Not Detected (NotDetected) 11/10/20 Unknown Ur Oxycodone Screen Not Detected (NotDetected) 11/10/20 Unknown Urine Methadone Screen Not Detected (NotDetected) 11/10/20 Unknown Ur Propoxyphene Screen Not Detected (NotDetected) 11/10/20 Unknown Ur Barbiturates Screen Not Detected (NotDetected) 11/10/20 Unknown U Tricyclic Antidepress Not Detected (NotDetected) 11/10/20 Unknown Ur Phencyclidine Scrn Not Detected (NotDetected) 11/10/20 Unknown Ur Amphetamines Screen Not Detected (NotDetected) 11/10/20 Unknown U Methamphetamines Scrn Not Detected (NotDetected) 11/10/20 Unknown U Benzodiazepines Scrn Not Detected (NotDetected) 11/10/20 Unknown Urine Cocaine Screen Not Detected (NotDetected) 11/10/20 Unknown U Marijuana (THC) Screen Not Detected (NotDetected) 11/10/20 Unknown Coronavirus (PCR) Not Detected (Not Detectd) 11/10/20 22:52 Vital Signs Temp 97.3 F L 11/15/20 06:48 Pulse 71 11/15/20 06:48 Resp 16 11/15/20 06:48 BP 130/64 11/15/20 06:48 Pulse Ox 100 11/10/20 23:31 Patient Condition at Discharge: Stable Plan - Discharge Summary New Discharge Prescriptions: New Nicotine 14Mg/24Hr Patch [Habitrol] 1 patch TRANSDERM DAILY 14 Days patch Paliperidone [Invega] 6 mg PO HS 4 Days tab.er.24 Paliperidone IM [Invega Sustenna] 156 mg IM ONCE #1 syr Paliperidone Palmitate [Invega Sustenna] 117 mg IM QMONTHLY #1 syr Sertraline [Zoloft] 50 mg PO DAILY 30 Days tab Discharge Medication List Nicotine 14Mg/24Hr Patch [Habitrol] 1 patch TRANSDERM DAILY 14 Days patch 10/25 10/13 [Rx] Paliperidone IM [Invega Sustenna] 156 mg IM ONCE #1 syr 11/15/20 [Rx] Paliperidone Palmitate [Invega Sustenna] 117 mg IM QMONTHLY #1 syr 11/15/20 [Rx] Paliperidone [Invega] 6 mg PO HS 4 Days tab.er.24 11/15/20 [Rx] Sertraline [Zoloft] 50 mg PO DAILY 30 Days tab 11/15/20 [Rx] Follow up Appointment(s)/Referral(s): [facility] [Outside] - 11/19/20 2:00 pm (11/15/20 at 9 am with Rebeca on the [facility]. Appointment 11/19/20 at 2 pm with Deirdre Myers. ) None,Stated [Primary Care Provider] - 1-2 days Activity/Diet/Wound Care/Special Instructions: Activity and diet as tolerated. Avoid the use of street drugs and alcohol. Take all medications as prescribed. When you are in need of refills on your medications please contact your medical provider and/or outpatient psychiatrist to have this done. Please go to scheduled outpatient appointment for aftercare treatment. If symptoms return or become worse, call the crisis line at and/or go to the nearest emergency room for evaluation. Discharge Disposition: OTHER INSTITUTION NOT DEFINED
== END 2020-11-15 11:39 | disposition home or self-care (01) | DRG 885 ==
LOC: EC 20:17 → 3MHU 11-11 00:35
PROVIDERS: ADMIT Psychiatry & Neurology Psychiatry; ATTEND Psychiatry & Neurology Psychiatry
DX: F25.1 Schizoaffective disorder, depressive type (principal); R45.851 Suicidal ideations; F17.210 Nicotine dependence, cigarettes, uncomplicated; F41.9 Anxiety disorder, unspecified; Z59.0 Homelessness; Z79.899 Other long term (current) drug therapy; Z20.822 Contact with and (suspected) exposure to COVID-19
CPT/HCPCS: 80053; 80061; 80306; 82075; 83036; 84443; 85025; 87635; 99285

== ENCOUNTER 2020-11-29 17:26 | Emergency (ER) | payer OTHER ==
--- NOTE | 2020-11-29 17:43 | ED ---
Psych HPI - General Chief Complaint: Psychiatric Symptoms Stated Complaint: Mental Health Time Seen by Provider: 11/29/20 17:43 Source: patient Mode of arrival: ambulatory - History of Present Illness Initial Comments: Arben Heath is a 35-year-old male who presents to the ER today for psychiatric evaluation. Patient admits to an extensive psychiatric history states that he is supposed to get monthly injections but that he is homeless and hasn't been able to make it to [facility] does not know when his last injection was. Patient states that he is hearing voices and having thoughts of killing self or hurting others. - Related Data Home Medications Medication Instructions Recorded Confirmed Nicotine 14Mg/24Hr Patch [Habitrol] 1 patch TRANSDERM DAILY PRN 11/29/20 11/29/20 Paliperidone Palmitate [Invega 117 mg IM DIRECTED 11/29/20 11/29/20 Sustenna] Previous Rx's Medication Instructions Recorded Paliperidone IM [Invega Sustenna] 156 mg IM ONCE #1 syr 11/15/20 Paliperidone [Invega] 6 mg PO HS 4 Days tab.er.24 11/15/20 Sertraline [Zoloft] 50 mg PO DAILY 30 Days tab 11/15/20 Allergies Allergy/AdvReac Type Severity Reaction Status Date / Time No Known Allergies Allergy Verified 11/29/20 18:33 Review of Systems ROS Statement: Those systems with pertinent positive or pertinent negative responses have been documented in the HPI. ROS Other: All systems not noted in ROS Statement are negative. Past Medical History Past Medical History: No Reported History Additional Past Medical History / Comment(s): Possible history of hypertension and used to be on Coreg. History of Any Multi-Drug Resistant Organisms: MRSA Date of last positivie culture/infection: 2017 MDRO Source:: right second finger. Past Surgical History: No Surgical Hx Reported Past Psychological History: Schizophrenia Smoking Status: Current some day smoker Past Alcohol Use History: Occasional Past Drug Use History: Cocaine, Heroin, Marijuana, Methamphetamine - Past Family History Father Family Medical History: No Reported History Mother Family Medical History: No Reported History General Exam - General Exam Comments Initial Comments: Physical Exam GENERAL: Patient is well-developed and well-nourished. Patient is nontoxic and well-hydrated and is in no distress. HENT: Normocephalic, Atraumatic. EYES: PERRL, EOMI PULMONARY: Unlabored respirations. CARDIOVASCULAR: RRR Warm and well perfused extremities ABDOMEN: Non-distended SKIN: No rashes or bruising : Deferred NEUROLOGIC: Alert and oriented Normal speech Normal gait MUSCULOSKELETAL: Moving all extremities with no apparent injury PSYCHIATRIC: Suicidal ideations Auditory hallucinations Limitations: no limitations Course Vital Signs 11/29/20 17:29 Temperature 98.0 F Pulse Rate 86 Respiratory 18 Rate Blood Pressure 160/85 Medical Decision Making - Medical Decision Making She was seen and evaluated patient is medically cleared for evaluation by psychiatry and was evaluated by Maria Alejandra the emergency psychiatric services nurse who contacted the patient's guardian. Patient is due for injection soon. Guarding can establish transport for follow-up. Patient will be discharged from the ER after being given his Invega injection. - Lab Data Result diagrams: 11/29/20 18:51 11/29/20 18:51 Lab Results 11/29/20 11/29/20 11/29/20 Range/Units 18:45 18:51 18:51 WBC 8.8 (3.8-10.6) k/uL RBC 5.02 (4.30-5.90) m/uL Hgb 15.2 (13.0-17.5) gm/dL Hct 47.0 (39.0-53.0) % MCV 93.6 (80.0-100.0) fL MCH 30.2 (25.0-35.0) pg MCHC 32.3 (31.0-37.0) g/dL RDW 14.2 (11.5-15.5) % Plt Count 281 (150-450) k/uL MPV 7.0 Neutrophils % 64 % Lymphocytes % 27 % Monocytes % 4 % Eosinophils % 3 % Basophils % 0 % Neutrophils # 5.6 (1.3-7.7) k/uL Lymphocytes # 2.4 (1.0-4.8) k/uL Monocytes # 0.4 (0-1.0) k/uL Eosinophils # 0.3 (0-0.7) k/uL Basophils # 0.0 (0-0.2) k/uL Sodium 138 (137-145) mmol/L Potassium 3.7 (3.5-5.1) mmol/L Chloride 103 (98-107) mmol/L Carbon Dioxide 28 (22-30) mmol/L Anion Gap 7 mmol/L BUN 12 (9-20) mg/dL Creatinine 0.95 (0.66-1.25) mg/dL Est GFR (CKD-EPI)AfAm >90 (>60 ml/min/1.73 sqM) Est GFR (CKD-EPI)NonAf >90 (>60 ml/min/1.73 sqM) Glucose 90 (74-99) mg/dL Calcium 9.7 (8.4-10.2) mg/dL Total Bilirubin 0.5 (0.2-1.3) mg/dL AST 24 (17-59) U/L ALT 18 (4-49) U/L Alkaline Phosphatase 112 (38-126) U/L Total Protein 7.0 (6.3-8.2) g/dL Albumin 4.4 (3.5-5.0) g/dL Urine Color Light Yellow Urine Appearance Clear (Clear) Urine pH 5.5 (5.0-8.0) Ur Specific [place] 1.006 (1.001-1.035) Urine Protein Negative (Negative) Urine Glucose (UA) Negative (Negative) Urine Ketones Negative (Negative) Urine Blood Negative (Negative) Urine Nitrite Negative (Negative) Urine Bilirubin Negative (Negative) Urine Urobilinogen <2.0 (<2.0) mg/dL Ur Leukocyte Esterase Negative (Negative) Salicylates <1.0 mg/dL Urine Opiates Screen Not Detected (NotDetected) Ur Oxycodone Screen Not Detected (NotDetected) Urine Methadone Screen Not Detected (NotDetected) Ur Propoxyphene Screen Not Detected (NotDetected) Acetaminophen <10.0 ug/mL Ur Barbiturates Screen Not Detected (NotDetected) U Tricyclic Antidepress Not Detected (NotDetected) Ur Phencyclidine Scrn Not Detected (NotDetected) Ur Amphetamines Screen Not Detected (NotDetected) U Methamphetamines Scrn Not Detected (NotDetected) U Benzodiazepines Scrn Not Detected (NotDetected) Urine Cocaine Screen Not Detected (NotDetected) U Marijuana (THC) Screen Detected H (NotDetected) Serum Alcohol <10 mg/dL Coronavirus (PCR) (Not Detectd) 11/29/20 Range/Units 18:54 WBC (3.8-10.6) k/uL RBC (4.30-5.90) m/uL Hgb (13.0-17.5) gm/dL Hct (39.0-53.0) % MCV (80.0-100.0) fL MCH (25.0-35.0) pg MCHC (31.0-37.0) g/dL RDW (11.5-15.5) % Plt Count (150-450) k/uL MPV Neutrophils % % Lymphocytes % % Monocytes % % Eosinophils % % Basophils % % Neutrophils # (1.3-7.7) k/uL Lymphocytes # (1.0-4.8) k/uL Monocytes # (0-1.0) k/uL Eosinophils # (0-0.7) k/uL Basophils # (0-0.2) k/uL Sodium (137-145) mmol/L Potassium (3.5-5.1) mmol/L Chloride (98-107) mmol/L Carbon Dioxide (22-30) mmol/L Anion Gap mmol/L BUN (9-20) mg/dL Creatinine (0.66-1.25) mg/dL Est GFR (CKD-EPI)AfAm (>60 ml/min/1.73 sqM) Est GFR (CKD-EPI)NonAf (>60 ml/min/1.73 sqM) Glucose (74-99) mg/dL Calcium (8.4-10.2) mg/dL Total Bilirubin (0.2-1.3) mg/dL AST (17-59) U/L ALT (4-49) U/L Alkaline Phosphatase (38-126) U/L Total Protein (6.3-8.2) g/dL Albumin (3.5-5.0) g/dL Urine Color Urine Appearance (Clear) Urine pH (5.0-8.0) Ur Specific [place] (1.001-1.035) Urine Protein (Negative) Urine Glucose (UA) (Negative) Urine Ketones (Negative) Urine Blood (Negative) Urine Nitrite (Negative) Urine Bilirubin (Negative) Urine Urobilinogen (<2.0) mg/dL Ur Leukocyte Esterase (Negative) Salicylates mg/dL Urine Opiates Screen (NotDetected) Ur Oxycodone Screen (NotDetected) Urine Methadone Screen (NotDetected) Ur Propoxyphene Screen (NotDetected) Acetaminophen ug/mL Ur Barbiturates Screen (NotDetected) U Tricyclic Antidepress (NotDetected) Ur Phencyclidine Scrn (NotDetected) Ur Amphetamines Screen (NotDetected) U Methamphetamines Scrn (NotDetected) U Benzodiazepines Scrn (NotDetected) Urine Cocaine Screen (NotDetected) U Marijuana (THC) Screen (NotDetected) Serum Alcohol mg/dL Coronavirus (PCR) Not Detected (Not Detectd) Disposition Clinical Impression: Homelessness, Depression Disposition: HOME SELF-CARE Condition: Stable Is patient prescribed a controlled substance at d/c from ED?: No Referrals: None,Stated [Primary Care Provider] - 1-2 days
[2020-11-29 18:50] LABS: Appearance,Urine Clear (Clear); Bilirubin,Urine Negative (Negative); Blood,Urine Negative (Negative); Color,Urine Light Yellow; Glucose,Urine (UA) Negative (Negative); Ketones,Urine Negative (Negative); Leukocyte Esterase,Urine Negative (Negative); Nitrite,Urine Negative (Negative); PH, Urine 5.5 (5.0-8.0); Protein,Urine Negative (Negative); Specific Gravity,Urine 1.006 (1.001-1.035); Urobilinogen,Urine <2.0 mg/dL (<2.0)
[2020-11-29 18:59] LABS: Basophils % (A) 0 %; Eosinophils # (A) 0.3 k/uL (0-0.7); Eosinophils % (A) 3 %; HGB 15.2 gm/dL (13.0-17.5); Lymphocytes # (A) 2.4 k/uL (1.0-4.8); Lymphocytes % (A) 27 %; MCH 30.2 pg (25.0-35.0); MCHC 32.3 g/dL (31.0-37.0); MCV 93.6 fL (80.0-100.0); Monocytes # (A) 0.4 k/uL (0-1.0); Monocytes % (A) 4 %; Neutrophils # (A) 5.6 k/uL (1.3-7.7); Neutrophils % (A) 64 %; Platelet Count 281 k/uL (150-450); RBC 5.02 m/uL (4.30-5.90); RDW 14.2 % (11.5-15.5); WBC 8.8 k/uL (3.8-10.6)
[2020-11-29 19:03] LABS: Amphetamine Screen,Urine Not Detected (NotDetected); Barbiturate Screen,Urine Not Detected (NotDetected); Benzodiazepines Screen,Urine Not Detected (NotDetected); Cocaine Screen,Urine Not Detected (NotDetected); Methadone Screen, Urine Not Detected (NotDetected); Opiate Screen,Urine Not Detected (NotDetected); Oxycodone Screen, Urine Not Detected (NotDetected); Phencyclidine Screen,Urine Not Detected (NotDetected); Tricyclic Antidepressant,Urine Not Detected (NotDetected); Urn Cannabinoid Scrn Detected (NotDetected)
[2020-11-29 19:18] LABS: ALT 18 U/L (4-49); AST 24 U/L (17-59); Acetaminophen <10.0 ug/mL; African American GFR (CKD) >90 (>60 ml/min/1.73 sqM); Albumin 4.4 g/dL (3.5-5.0); Alcohol <10 mg/dL; Alkaline Phosphatase 112 U/L (38-126); Anion Gap 7 mmol/L; Blood Urea Nitrogen 12 mg/dL (9-20); Calcium 9.7 mg/dL (8.4-10.2); Carbon Dioxide 28 mmol/L (22-30); Chloride 103 mmol/L (98-107); Glucose 90 mg/dL (74-99); Non-African American GFR(CKD) >90 (>60 ml/min/1.73 sqM); Potassium 3.7 mmol/L (3.5-5.1); Salicylate <1.0 mg/dL; Sodium 138 mmol/L (137-145); Total Bilirubin 0.5 mg/dL (0.2-1.3)
[2020-11-29] MEDS ORDERED: PALIPERIDONE IM 234 MG/1.5 ML SYG IM STA (20:43)
[2020-11-29 21:17] VITALS: BP 156/71; PULSE 89; RESP 20; TEMP 98.2
== END 2020-11-29 21:14 | disposition home or self-care (01) ==
LOC: EC 17:26
DX: F32.9 Major depressive disorder, single episode, unspecified (principal); F20.9 Schizophrenia, unspecified; F14.90 Cocaine use, unspecified, uncomplicated; F12.90 Cannabis use, unspecified, uncomplicated; F17.200 Nicotine dependence, unspecified, uncomplicated; Z20.822 Contact with and (suspected) exposure to COVID-19; Z59.0 Homelessness
CPT/HCPCS: 82075; 36415; 80053; 85025; 81003; 80306; 80143; 87635; 80179; 99284; 96372; G0480; J2426; 80320

== ENCOUNTER 2020-11-30 11:06 | Emergency (ER) | payer OTHER ==
[2020-11-30 12:24] LABS: Amphetamine Screen,Urine Not Detected (NotDetected); Barbiturate Screen,Urine Not Detected (NotDetected); Benzodiazepines Screen,Urine Not Detected (NotDetected); Cocaine Screen,Urine Not Detected (NotDetected); Methadone Screen, Urine Not Detected (NotDetected); Opiate Screen,Urine Not Detected (NotDetected); Oxycodone Screen, Urine Not Detected (NotDetected); Phencyclidine Screen,Urine Not Detected (NotDetected); Tricyclic Antidepressant,Urine Not Detected (NotDetected); Urn Cannabinoid Scrn Detected (NotDetected)
--- NOTE | 2020-11-30 12:38 | ED ---
General Adult HPI - General Stated complaint: EPS eval Time Seen by Provider: 11/30/20 11:20 Source: patient, EMS, RN notes reviewed Mode of arrival: EMS Limitations: no limitations - History of Present Illness Initial comments: 35-year-old male presents emergency Department with chief complaint of mental breakdown. Patient states his feeling like he is have a breakdown. Patient was seen yesterday. Patient is currently homeless living in a [facility]. Patient denies any suicidal or homicidal patient received an injection for psychiatric problems yesterday. He doesn't a schizophrenic denies any current drug or alcohol use. - Related Data Home Medications Medication Instructions Recorded Confirmed Nicotine 14Mg/24Hr Patch [Habitrol] 1 patch TRANSDERM DAILY PRN 11/29/20 11/29/20 Paliperidone Palmitate [Invega 117 mg IM DIRECTED 11/29/20 11/29/20 Sustenna] Previous Rx's Medication Instructions Recorded Paliperidone IM [Invega Sustenna] 156 mg IM ONCE #1 syr 11/15/20 Paliperidone [Invega] 6 mg PO HS 4 Days tab.er.24 11/15/20 Sertraline [Zoloft] 50 mg PO DAILY 30 Days tab 11/15/20 Allergies Allergy/AdvReac Type Severity Reaction Status Date / Time No Known Allergies Allergy Verified 11/30/20 11:25 Review of Systems ROS Statement: Those systems with pertinent positive or pertinent negative responses have been documented in the HPI. ROS Other: All systems not noted in ROS Statement are negative. Past Medical History Past Medical History: No Reported History Additional Past Medical History / Comment(s): Possible history of hypertension and used to be on Coreg. History of Any Multi-Drug Resistant Organisms: MRSA Date of last positivie culture/infection: 2017 MDRO Source:: right second finger. Past Surgical History: No Surgical Hx Reported Past Psychological History: Schizophrenia Smoking Status: Current some day smoker Past Alcohol Use History: Occasional Past Drug Use History: Cocaine, Heroin, Marijuana, Methamphetamine - Past Family History Father Family Medical History: No Reported History Mother Family Medical History: No Reported History General Exam Limitations: no limitations General appearance: alert, in no apparent distress Head exam: Present: atraumatic, normocephalic, normal inspection Eye exam: Present: normal appearance, PERRL, EOMI. Absent: scleral icterus, conjunctival injection, periorbital swelling ENT exam: Present: normal exam, normal oropharynx, mucous membranes moist Neck exam: Present: normal inspection, full ROM. Absent: tenderness, meningismus, lymphadenopathy Respiratory exam: Present: normal lung sounds bilaterally. Absent: respiratory distress, wheezes, rales, rhonchi, stridor Cardiovascular Exam: Present: regular rate, normal rhythm, normal heart sounds. Absent: systolic murmur, diastolic murmur, rubs, gallop, clicks Neurological exam: Present: alert Psychiatric exam: Present: flat affect Skin exam: Present: warm, dry, intact, normal color. Absent: rash Course Vital Signs 11/30/20 11:23 Temperature 98.3 F Pulse Rate 84 Respiratory 18 Rate Blood Pressure 153/98 O2 Sat by Pulse 99 Oximetry Medical Decision Making - Medical Decision Making Patient evaluated by EPS. Patient will be discharged in stable condition as inpatient treatment was not recommended by psychiatrist. Disposition Clinical Impression: Schizophrenia Disposition: HOME SELF-CARE Condition: Stable Instructions (If sedation given, give patient instructions): Schizophrenia (ED) Additional Instructions: Please return to the Emergency Department if symptoms worsen or any other concerns. Is patient prescribed a controlled substance at d/c from ED?: No Referrals: None,Stated [Primary Care Provider] - 1-2 days Time of Disposition: 12:40
[2020-11-30 12:47] VITALS: BP 147/74; PULSE 81; RESP 17; TEMP 98.1
== END 2020-11-30 12:46 | disposition home or self-care (01) ==
LOC: EC 11:06
DX: F20.9 Schizophrenia, unspecified (principal); F17.200 Nicotine dependence, unspecified, uncomplicated; F12.90 Cannabis use, unspecified, uncomplicated; F14.90 Cocaine use, unspecified, uncomplicated; F15.10 Other stimulant abuse, uncomplicated; Z79.899 Other long term (current) drug therapy; Z59.0 Homelessness
CPT/HCPCS: 80306; 82075; 99285

== ENCOUNTER 2020-12-23 13:35 | Inpatient (IN) | payer MEDICAID, OTHER ==
--- NOTE | 2020-12-23 14:23 | ED ---
Psych HPI - General Chief Complaint: Psychiatric Symptoms Stated Complaint: Psychiatric Symptoms Time Seen by Provider: 12/23/20 13:41 Source: patient, EMS, RN notes reviewed Mode of arrival: EMS - History of Present Illness Initial Comments: This is a 35-year-old male with history of schizophrenia history depression who is brought here today by EMS with complaints of feeling depressed suicidal he states he wants a step his neck. He apparently was drinking some beer this morning he admits to one big beer. No other complaints of any other meds or drugs. MD Complaint: suicidal ideation, feels depressed, other - Related Data Home Medications Medication Instructions Recorded Confirmed Nicotine 14Mg/24Hr Patch [Habitrol] 1 patch TRANSDERM DAILY PRN 11/29/20 12/23/20 Paliperidone Palmitate [Invega 117 mg IM Q14D 11/29/20 12/23/20 Sustenna] Previous Rx's Medication Instructions Recorded Paliperidone IM [Invega Sustenna] 156 mg IM ONCE #1 syr 11/15/20 Paliperidone [Invega] 6 mg PO HS 4 Days tab.er.24 11/15/20 Sertraline [Zoloft] 50 mg PO DAILY 30 Days tab 11/15/20 Allergies Allergy/AdvReac Type Severity Reaction Status Date / Time No Known Allergies Allergy Verified 12/23/20 16:07 Review of Systems ROS Statement: Those systems with pertinent positive or pertinent negative responses have been documented in the HPI. ROS Other: All systems not noted in ROS Statement are negative. Past Medical History Past Medical History: No Reported History Additional Past Medical History / Comment(s): Possible history of hypertension and used to be on Coreg. History of Any Multi-Drug Resistant Organisms: MRSA Date of last positivie culture/infection: 2017 MDRO Source:: right second finger. Past Surgical History: No Surgical Hx Reported Past Psychological History: Schizophrenia Smoking Status: Current some day smoker Past Alcohol Use History: Occasional - Past Family History Father Family Medical History: No Reported History Mother Family Medical History: No Reported History General Exam - General Exam Comments Initial Comments: This is a well-developed well-nourished awake alert oriented times f3 male Limitations: no limitations General appearance: alert, in no apparent distress Head exam: Present: atraumatic, normocephalic, normal inspection Eye exam: Present: normal appearance, PERRL, EOMI. Absent: scleral icterus, conjunctival injection, periorbital swelling ENT exam: Present: normal exam, mucous membranes moist Neck exam: Present: normal inspection. Absent: tenderness, meningismus, lymphadenopathy Respiratory exam: Present: normal lung sounds bilaterally. Absent: respiratory distress, wheezes, rales, rhonchi, stridor Cardiovascular Exam: Present: regular rate, normal rhythm, normal heart sounds. Absent: systolic murmur, diastolic murmur, rubs, gallop, clicks GI/Abdominal exam: Present: soft, normal bowel sounds. Absent: distended, tenderness, guarding, rebound, rigid Extremities exam: Present: normal inspection, full ROM, normal capillary refill. Absent: tenderness, pedal edema, joint swelling, calf tenderness Back exam: Present: normal inspection Neurological exam: Present: alert, oriented X3, CN II-XII intact Psychiatric exam: Present: depressed, flat affect Skin exam: Present: warm, dry, intact, normal color. Absent: rash Course Vital Signs 12/23/20 12/23/20 12/23/20 13:49 14:54 16:00 Temperature 98.8 F Pulse Rate 93 Respiratory 18 18 18 Rate Blood Pressure 156/87 O2 Sat by Pulse 97 Oximetry 12/23/20 12/23/20 17:00 17:59 Temperature 98.8 F Pulse Rate 93 Respiratory 18 18 Rate Blood Pressure 156/87 O2 Sat by Pulse 97 Oximetry - Reevaluation(s) Reevaluation #1: 12/23/20 14:23 The patient is medically cleared for a psychiatric evaluation Medical Decision Making - Medical Decision Making The patient had been signed out to Dr. Crocker at shift change patient was evaluated in the EPS service and was admitted for inpatient evaluation treatment - Lab Data Lab Results 12/23/20 12/23/20 12/23/20 Range/Units 14:32 14:32 16:49 Urine Opiates Screen Not Detected (NotDetected) Ur Oxycodone Screen Not Detected (NotDetected) Urine Methadone Screen Not Detected (NotDetected) Ur Propoxyphene Screen Not Detected (NotDetected) Ur Barbiturates Screen Not Detected (NotDetected) U Tricyclic Antidepress Not Detected (NotDetected) Ur Phencyclidine Scrn Not Detected (NotDetected) Ur Amphetamines Screen Not Detected (NotDetected) U Methamphetamines Scrn Not Detected (NotDetected) U Benzodiazepines Scrn Not Detected (NotDetected) Urine Cocaine Screen Not Detected (NotDetected) U Marijuana (THC) Screen Not Detected (NotDetected) Serum Alcohol 12 mg/dL Coronavirus (PCR) Not Detected (Not Detectd) Disposition Clinical Impression: Schizophrenia, Depression Disposition: TRANSFER TO PSYCH HOSP/UNIT Condition: Fair
[2020-12-23 15:06] LABS: Amphetamine Screen,Urine Not Detected (NotDetected); Barbiturate Screen,Urine Not Detected (NotDetected); Benzodiazepines Screen,Urine Not Detected (NotDetected); Cocaine Screen,Urine Not Detected (NotDetected); Methadone Screen, Urine Not Detected (NotDetected); Opiate Screen,Urine Not Detected (NotDetected); Oxycodone Screen, Urine Not Detected (NotDetected); Phencyclidine Screen,Urine Not Detected (NotDetected); Tricyclic Antidepressant,Urine Not Detected (NotDetected); Urn Cannabinoid Scrn Not Detected (NotDetected)
[2020-12-23] MEDS ORDERED: MAG HYDROX/AL HYDROX/SIMETH 30 ML CUP PO PRN (18:35)
[2020-12-23] MEDS ORDERED: LORazepam 1 MG TAB PO PRN (18:35)
[2020-12-23] MEDS ORDERED: ACETAMINOPHEN TAB 325 MG TAB PO PRN (18:35)
[2020-12-23] MEDS ORDERED: LORazepam 2 MG/ML INJ IM PRN (18:36)
[2020-12-23] MEDS ORDERED: haloperidoL 5 MG TAB PO PRN (18:37)
[2020-12-23] MEDS ORDERED: HALOPERIDOL LACTATE 5 MG/ML 1 ML VIAL IM PRN (18:37)
[2020-12-23] MEDS ORDERED: QUEtiapine 50 MG TAB PO PRN (18:39)
--- NOTE | 2020-12-24 02:39 | P.MDCNMH ---
History of Present Illness H&P Date: 12/24/20 Chief Complaint: medical eval 35 year old male with no significant past medical history comes in due to hallucinations, acute psychosis and suicidal ideation denies any fever, chills, URI symptoms, abd pain , nausea or vomiting complains if itching between his toes. and burning sensation Review of Systems Pertinent positives as noted in HPI. All other systems were reviewed and are negative Past Medical History Past Medical History: No Reported History Additional Past Medical History / Comment(s): Possible history of hypertension and used to be on Coreg. History of Any Multi-Drug Resistant Organisms: MRSA Date of last positivie culture/infection: 2018 MDRO Source:: right second finger. Past Surgical History: No Surgical Hx Reported Past Psychological History: Schizophrenia Smoking Status: Current every day smoker, Heavy tobacco smoker Past Alcohol Use History: Occasional Past Drug Use History: None Reported, Cocaine, Heroin, Marijuana, Methamphetamine Additional Drug Use History / Comment(s): pt denies drug use history; history of cocaine, heroin, marijuana, and methamphetamine use was indicated in pt's medical record. - Past Family History Father Family Medical History: No Reported History Mother Family Medical History: No Reported History Medications and Allergies Home Medications Medication Instructions Recorded Confirmed Type Paliperidone IM [Invega Sustenna] 156 mg IM ONCE #1 syr 11/15/20 12/23/20 Rx Paliperidone [Invega] 6 mg PO HS 4 Days tab.er.24 11/15/20 12/23/20 Rx Sertraline [Zoloft] 50 mg PO DAILY 30 Days tab 11/15/20 12/23/20 Rx Nicotine 14Mg/24Hr Patch [Habitrol] 1 patch TRANSDERM DAILY PRN 11/29/20 12/23/20 History Paliperidone Palmitate [Invega 117 mg IM Q14D 11/29/20 12/23/20 History Sustenna] Allergies Allergy/AdvReac Type Severity Reaction Status Date / Time No Known Allergies Allergy Verified 12/23/20 16:07 Physical Exam Vitals: Vital Signs Temp Pulse Pulse Resp BP BP Pulse Ox 12/23/20 19:14 98.1 F 79 16 137/93 98 12/23/20 17:59 98.8 F 93 18 156/87 97 12/23/20 17:00 18 12/23/20 16:00 18 12/23/20 14:54 18 12/23/20 13:49 98.8 F 93 18 156/87 97 Intake and Output 12/23/20 12/23/20 12/24/20 14:59 22:59 06:59 Other: Weight 90.719 kg 94.886 kg Constitutional: No acute distress, conversant, pleasant Eyes: Anicteric sclerae, moist conjunctiva, Pupils equal round reactive to light ENMT: NC/AT Oropharynx clear, no erythema, or exudates Neck: Supple, FROM, no masses, or JVD No carotid bruits No thyromegaly Lungs: Clear to auscultation Clear to percussion Normal respiratory effort, no accessory muscle use Cardiovascular: Heart regular in rate and rhythm, No murmurs, gallops, or rubs No peripheral edema Abdominal: Soft Nontender, no guarding, rebound or rigidity Abdomen moving with respiration Normoactive bowel sounds No hepatomegaly, No splenomegaly No palpable mass No abdominal wall hernia noted Skin: Normal temperature, tone, texture, turgor No induration No subcutaneous nodules No rash, lesions dryness and scaling over the sole of the foot and in between toe webs Extremities: No digital cyanosis No clubbing Pedal pulses intact and symmetrical Radial pulses intact and symmetrical No calf tenderness Psychiatric: Alert and oriented to person, place and time Neuro Muscles Strength 5/5 in all 4 extremities Sensation to light touch grossly present throughout Cranial nerves II-XII grossly intact No focal sensory deficits Lymphatics: no palpable cervical or supraclavicular , or inguinal lymph nodes Cranial Nerve Examination - Cranial Nerves Cranial Nerve II- Optic: Intact Cranial Nerve III- Oculomotor: Intact Cranial Nerve IV- Trochlear: Intact Cranial Nerve V- Trigeminal: Intact Cranial Nerve - Abducens: Intact Cranial Nerve VII- Facial: Intact Cranial Nerve VIII- Auditory: Intact Cranial Nerve IX- Glossopharyngeal: Intact Cranial Nerve X- Vagus: Intact Cranial Nerve XI- Accessory: Intact Cranial Nerve XII- Hypoglossal: Intact Assessment and Plan Assessment: acute psychosis and suicidal ideation management per psych athlete foot lotrimin cream BID Follow-up labs Thank you for allowing us to participate in the care of this patient. We will follow peripherally. Do not hesitate to contact us with questions. Someone can be reached from the [facility] hospitalist group at all hours of the day at [phone].
[2020-12-24] MEDS: CLOTRIMAZOLE 1% CREAM 30 GM TUBE TOPICAL SCH ×3 (04:28→20:52)
[2020-12-24 07:57] LABS: Basophils # (A) 0.1 k/uL (0-0.2); Basophils % (A) 1 %; Eosinophils # (A) 0.3 k/uL (0-0.7); Eosinophils % (A) 3 %; HCT 51.2 % (39.0-53.0); HGB 16.4 gm/dL (13.0-17.5); Lymphocytes # (A) 2.7 k/uL (1.0-4.8); Lymphocytes % (A) 32 %; MCH 29.7 pg (25.0-35.0); MCV 92.9 fL (80.0-100.0); Mean Platelet Volume 7.1; Monocytes # (A) 0.6 k/uL (0-1.0); Monocytes % (A) 7 %; Neutrophils # (A) 4.8 k/uL (1.3-7.7); Neutrophils % (A) 56 %; Platelet Count 279 k/uL (150-450); RBC 5.51 m/uL (4.30-5.90); WBC 8.5 k/uL (3.8-10.6)
[2020-12-24 08:16] LABS: ALT 26 U/L (4-49); AST 33 U/L (17-59); African American GFR (CKD) >90 (>60 ml/min/1.73 sqM); Albumin 4.7 g/dL (3.5-5.0); Alkaline Phosphatase 68 U/L (38-126); Anion Gap 9 mmol/L; Blood Urea Nitrogen 15 mg/dL (9-20); Calcium 9.7 mg/dL (8.4-10.2); Carbon Dioxide 26 mmol/L (22-30); Chloride 102 mmol/L (98-107); Glucose 108 mg/dL (74-99); Non-African American GFR(CKD) >90 (>60 ml/min/1.73 sqM); Potassium 4.8 mmol/L (3.5-5.1); Sodium 137 mmol/L (137-145); Total Bilirubin 0.8 mg/dL (0.2-1.3); Total Protein 7.4 g/dL (6.3-8.2)
[2020-12-24] MEDS: NICOTINE 14MG/24HR PATCH TRANSDERM SCH (08:30)
[2020-12-24] MEDS ORDERED: traZODone HCL 50 MG TAB PO PRN (10:30)
--- NOTE | 2020-12-24 10:37 | P.HP ---
Psychiatric H&P - . H&P Date: 12/24/20 History & Physical: Allergies Allergy/AdvReac Type Severity Reaction Status Date / Time No Known Allergies Allergy Verified 12/23/20 16:07 Vital Signs Temp 98.0 F 12/24/20 06:46 Pulse 83 12/24/20 06:46 Resp 18 12/24/20 06:46 BP 143/94 12/24/20 06:46 Pulse Ox 97 12/24/20 06:46 Intake & Output 12/23/20 12/24/20 12/24/20 18:59 06:59 18:59 Weight 90.719 kg 94.886 kg Laboratory Last Values WBC 8.5 k/uL (3.8-10.6) 12/24/20 07:14 RBC 5.51 m/uL (4.30-5.90) 12/24/20 07:14 Hgb 16.4 gm/dL (13.0-17.5) 12/24/20 07:14 Hct 51.2 % (39.0-53.0) 12/24/20 07:14 MCV 92.9 fL (80.0-100.0) 12/24/20 07:14 MCH 29.7 pg (25.0-35.0) 12/24/20 07:14 MCHC 32.0 g/dL (31.0-37.0) 12/24/20 07:14 RDW 14.0 % (11.5-15.5) 12/24/20 07:14 Plt Count 279 k/uL (150-450) 12/24/20 07:14 MPV 7.1 12/24/20 07:14 Neutrophils % 56 % 12/24/20 07:14 Lymphocytes % 32 % 12/24/20 07:14 Monocytes % 7 % 12/24/20 07:14 Eosinophils % 3 % 12/24/20 07:14 Basophils % 1 % 12/24/20 07:14 Neutrophils # 4.8 k/uL (1.3-7.7) 12/24/20 07:14 Lymphocytes # 2.7 k/uL (1.0-4.8) 12/24/20 07:14 Monocytes # 0.6 k/uL (0-1.0) 12/24/20 07:14 Eosinophils # 0.3 k/uL (0-0.7) 12/24/20 07:14 Basophils # 0.1 k/uL (0-0.2) 12/24/20 07:14 Sodium 137 mmol/L (137-145) 12/24/20 07:14 Potassium 4.8 mmol/L (3.5-5.1) 12/24/20 07:14 Chloride 102 mmol/L (98-107) 12/24/20 07:14 Carbon Dioxide 26 mmol/L (22-30) 12/24/20 07:14 Anion Gap 9 mmol/L 12/24/20 07:14 BUN 15 mg/dL (9-20) 12/24/20 07:14 Creatinine 0.96 mg/dL (0.66-1.25) 12/24/20 07:14 Est GFR (CKD-EPI)AfAm >90 (>60 ml/min/1.73 sqM) 12/24/20 07:14 Est GFR (CKD-EPI)NonAf >90 (>60 ml/min/1.73 sqM) 12/24/20 07:14 Glucose 108 mg/dL (74-99) H 12/24/20 07:14 Calcium 9.7 mg/dL (8.4-10.2) 12/24/20 07:14 Total Bilirubin 0.8 mg/dL (0.2-1.3) 12/24/20 07:14 AST 33 U/L (17-59) 12/24/20 07:14 ALT 26 U/L (4-49) 12/24/20 07:14 Alkaline Phosphatase 68 U/L (38-126) 12/24/20 07:14 Total Protein 7.4 g/dL (6.3-8.2) 12/24/20 07:14 Albumin 4.7 g/dL (3.5-5.0) 12/24/20 07:14 TSH 2.150 mIU/L (0.465-4.680) 12/24/20 07:14 Urine Opiates Screen Not Detected (NotDetected) 12/23/20 14:32 Ur Oxycodone Screen Not Detected (NotDetected) 12/23/20 14:32 Urine Methadone Screen Not Detected (NotDetected) 12/23/20 14:32 Ur Propoxyphene Screen Not Detected (NotDetected) 12/23/20 14:32 Ur Barbiturates Screen Not Detected (NotDetected) 12/23/20 14:32 U Tricyclic Antidepress Not Detected (NotDetected) 12/23/20 14:32 Ur Phencyclidine Scrn Not Detected (NotDetected) 12/23/20 14:32 Ur Amphetamines Screen Not Detected (NotDetected) 12/23/20 14:32 U Methamphetamines Scrn Not Detected (NotDetected) 12/23/20 14:32 U Benzodiazepines Scrn Not Detected (NotDetected) 12/23/20 14:32 Urine Cocaine Screen Not Detected (NotDetected) 12/23/20 14:32 U Marijuana (THC) Screen Not Detected (NotDetected) 12/23/20 14:32 Serum Alcohol 12 mg/dL 12/23/20 14:32 Coronavirus (PCR) Not Detected (Not Detectd) 12/23/20 16:49 12/24/20 10:31 IDENTIFYING DATA: Patient is a 35-year-old -[place] male who is currently homeless has a public guardian and a history of schizoaffective disorder. HPI: Patient presented to the hospital yesterday for complaints of depression and suicidal thoughts. According to EPS petition patient verbalized having suicidal thoughts with a plan to "snap my neck" and also was claiming that he was hearing voices from his mother telling him to do bad stuff. Patient has had several admissions in the past due to noncompliance and psychosis, depression. Patient appeared to be disheveled in appearance and was agreeable to speak to underwriter mortgage loan today. He was not responding to internal stimuli and was attempting to cooperate. He was fairly concrete and guarded. He claims that he has been homeless for about a year now and claims that his guardian is not helping him. He states that he is not allowed in any shelters because he does not have any ID. He claims that he has been struggling with maintaining himself on the streets and claims that he has not been taking his medications and did not go to his last follow-up appointment at [facility]. He states that he has not received a long-acting injection since the previous time he was in the hospital which was in October 2020. He claims that he is feeling depressed and claims that his sleep has been fair and appetite has been fair. He claims that he drank 1 glass of beer yesterday before coming in the hospital however denies any other recreational drug use. He is denying any auditory hallucinations. He denies any visual hallucinations. Patient denies any flight of ideas racing thoughts and increased in goal directed behavior. Currently he is denying any suicidal thoughts or any homicidal ideations. Patient admits to using cigarettes daily however denies any other recreational drug use. PAST PSYCHIATRIC HISTORY: Patient states that she is a history of schizoaffective disorder. Patient was previously on Invega Sustenna however it is unknown the last injection dose that he is received from [facility]. Patient was last psychiatrically hospitalized on the mental health unit in October 2020. He states that he is to go to [facility] however has not followed up. Patient denies any history of suicide attempts in the past. PMH:denies ALLERGIES: as per EMR CHEMICAL DEPENDENCY HISTORY: as per HPI FAMILY PSYCHIATRIC/SUBSTANCE USE HISTORY: denies SOCIAL HISTORY: Patient was born and raised in [place]. He states that he completed up to 11th grade. He claims that he dropped out of high school afterwards. He states that he did not work after high school and is currently collecting Social Security. He has a public guardian. He denies having any kids and is unmarried. He states that he is currently homeless. He claims that he has been jailed in the past however cannot remember what charges he's had. MENTAL STATUS EXAM: General Appearance: Patient appears to be well-built, stated age is alert, several tattoos, directable, and attempts to cooperate. Patient appears to have poor hygiene and grooming. Behavior: Patient is seated without any agitated behavior. Constricted. [place] Speech: Patient's speech is fluent and nonpressured. Mood/Affect: Patient reports their mood is depressed, affect is congruent and constricted. Suicidality/Homicidality: Patient denies having any homicidal ideation intent or plan. Denies any suicidal ideations intent or plan Perceptions: Patient denies any visual hallucinations he states that he is hearing voices. Though content/process: [place], poverty of content. Not endorsing delusions. Memory and concentration: AOX3, grossly intact for the purposes of this session. Can spell "WORLD" backwards Judgment and insight: poor STRENGTHS/WEAKNESSES: strength is that patient is resilient. Weakness is that patient has poor judgment and has chronic mental illness, homelessness INTELLECT: average IMPRESSIONS: Schizoaffective disorder, depressive type Homelessness Nicotine dependence PLAN: -Patient is admitted under involuntary status to MHU for stabilization of psychiatric symptoms and safety. A second certificate was completed and filed with courts. -Medications : Will start patient on Zoloft 50 mg daily at bedtime for depression/anxiety. We'll attempt to confirm with [facility] when patient's last Invega Sustenna dose was received and what the dose was. We'll start 3 mg paliperidone daily at bedtime for psychosis. -Ativan and Haldol PRN for agitation/aggression -Patient was informed of the risks, benefits and side effects of the medication and patient verbally consented to taking the medications. Patient did not sign med consent form and was placed in chart. -Internal Medicine consult to perform medical evaluation and physical. -NRT - nicotine patch -SW on board for discharge planning. Encourage patient to participate in groups to work on coping skills. Will await deferral and full court hearing date.
[2020-12-24] MEDS: SERTRALINE 50 MG TAB PO SCH (11:00)
[2020-12-24 11:48] LABS: Chol/HDL Ratio 3.16; Cholesterol 180 mg/dL (0-200); LDL Cholesterol,Calculated 96.8 mg/dL (0.0-131.0)
[2020-12-24] MEDS: PALIPERIDONE 3 MG TAB.ER.24 PO SCH (20:51)
[2020-12-25] MEDS: CLOTRIMAZOLE 1% CREAM 30 GM TUBE TOPICAL SCH ×2 (08:34→21:58)
[2020-12-25] MEDS: SERTRALINE 50 MG TAB PO SCH (08:34)
[2020-12-25] MEDS: NICOTINE 14MG/24HR PATCH TRANSDERM SCH (08:34)
--- NOTE | 2020-12-25 09:53 | P.PN ---
Progress Note - Text Progress Note Date: 12/25/20 Interval History: Patient was seen lying in his bed this morning and was directable and agreeable to speak with service writer advisor in the office. Patient claims that he just recently sat down with the deputy attorney general and claims that he signed the deferral and is agreeable to continue on with treatment. He was asking about discharge several times during the conversation. He appears to be more cooperative during conversation. He did not offer any overnight complaints and states that he slept approximately 7 hours last night. He states that he feels bored on the unit and has been going to some groups. She states that he has been eating fairly. He claims that he has "other things to do". He has improvement in his thought process and is more logical today. He claims that his mood is been gradually improving on the unit and denying any anxiety today. At this time patient denies any suicidal or homical ideations, intent or plan. Patient denies any auditory, visual hallucinations and denies any paranoia or delusions. Patient denies any side effects from the medications and has been compliant with meds. Mental Status Exam: General Appearance: Patient appears to be well-built, stated age is alert, several tattoos, directable, and attempts to cooperate. Patient appears to have improving hygiene and grooming. Behavior: Patient is seated without any agitated behavior. Constricted. [place] Speech: Patient's speech is fluent and nonpressured. Mood/Affect: Patient reports their mood is improving, affect is congruent and constricted. Suicidality/Homicidality: Patient denies having any homicidal ideation intent or plan. Denies any suicidal ideations intent or plan Perceptions: Patient denies any visual hallucinations. Denies any auditory hallucinations. Though content/process: [place], poverty of content. Not endorsing delusions. Memory and concentration: AOX3, grossly intact for the purposes of this session. Judgment and insight: Chronically poor, improving mildly Assessment Schizoaffective disorder, depressive type Homelessness Nicotine dependence Plan: -Patient continues to meet criteria for inpatient psychiatric admission for symptom stabilization and safety. Patient has not signed adult voluntary form and medication consent and was placed in patient's chart. -Medications: Continue Zoloft 50 mg daily at bedtime for depression/anxiety. Patient perceived his Invega Sustenna 117 mg IM dose this morning which will be his monthly dose. We'll continue with paliperidone by mouth 3 mg daily at bedtime for psychosis with plan to discontinue tomorrow. -When necessary Ativan and Haldol for agitation/aggression. -NRT - nicotine patch -SW on board for discharge planning. Encouraged the patient to participate in milieu. general lithographic worker to speak with patient's guardian and coordinate for discharge tomorrow. Patient will likely go to alf.
[2020-12-25] MEDS ORDERED: PALIPERIDONE IM 117 MG/0.75 ML ML (PT OWN) IM ONE (12:00)
[2020-12-25] MEDS: PALIPERIDONE 3 MG TAB.ER.24 PO SCH ×2 (21:58→22:50)
[2020-12-26 06:49] VITALS: BP 134/90; PULSE 62; RESP 16
[2020-12-26] MEDS: SERTRALINE 50 MG TAB PO SCH (08:05)
[2020-12-26] MEDS: NICOTINE 14MG/24HR PATCH TRANSDERM SCH (08:05)
[2020-12-26] MEDS: CLOTRIMAZOLE 1% CREAM 30 GM TUBE TOPICAL SCH (08:05)
[2020-12-26 09:29] VITALS: TEMP 97.8
--- NOTE | 2020-12-26 11:15 | P.DS ---
Providers Date of admission: 12/23/20 17:43 Expected date of discharge: 12/26/20 Attending physician: Montana Saleh MD Consults: 12/23/20 18:35 Consult Physician Routine Consulting Provider: Arun Draper Consult Reason/Comments: Admission H & P Do you want consulting provider notified?: Already Contacted Primary care physician: Stated None - Discharge Diagnosis(es) (1) Schizoaffective disorder, depressive type Current Visit: Yes Status: Acute Priority: High (2) Homelessness Current Visit: Yes Status: Acute Priority: Medium (3) Nicotine dependence Current Visit: Yes Status: Acute Priority: Low Hospital Course: Admission HPI: Admission note was completed by press writer "Patient is a 35-year-old - [place] male who is currently homeless has a public guardian and a history of schizoaffective disorder. Patient presented to the hospital yesterday for complaints of depression and suicidal thoughts. According to EPS petition patient verbalized having suicidal thoughts with a plan to "snap my neck" and also was claiming that he was hearing voices from his mother telling him to do bad stuff. Patient has had several admissions in the past due to noncompliance and psychosis, depression. Patient appeared to be disheveled in appearance and was agreeable to speak to press writer today. He was not responding to internal stimuli and was attempting to cooperate. He was fairly concrete and guarded. He claims that he has been homeless for about a year now and claims that his guardian is not helping him. He states that he is not allowed in any shelters because he does not have any ID. He claims that he has been struggling with maintaining himself on the streets and claims that he has not been taking his medications and did not go to his last follow-up appointment at [facility]. He states that he has not received a long-acting injection since the previous time he was in the hospital which was in October 2020. He claims that he is feeling depressed and claims that his sleep has been fair and appetite has been fair. He claims that he drank 1 glass of beer yesterday before coming in the hospital however denies any other recreational drug use. He is denying any auditory hallucinations. He denies any visual hallucinations. Patient denies any flight of ideas racing thoughts and increased in goal directed behavior. Currently he is denying any suicidal thoughts or any homicidal ideations. Patient admits to using cigarettes daily however denies any other recreational drug use." Hospital course: Upon admission to the unit patient was initially constricted and depressed. Patient was however admitted involuntarily and a second certificate was complet ed and faxed to the courts. Patient ended up signing a deferral with his banking attorney and agreeable to continue on with treatment. Patient got along well with other patients on the unit and followed unit protocol. Patient was compliant with the medications and denied any side effects throughout hospital course. Patient was started on paliperidone on 3 mg daily at bedtime for psychosis as patient had missed his Invega Sustenna dose which was supposed to be due on 12/12. Patient was given Invega Sustenna IM 117 mg on 12/25/20 and will be due for his next monthly injection on 01/22. Patient was also started on Zoloft 50 mg daily for mood/anxiety. Patient spoke of his stressors and engaged in therapy both group and individual. Patient was also seen by medical team for history and physical exam. Throughout the course of the hospitalization patient gradually improved with regards to mood, anxiety, psychosis, sleep and became more future oriented with improved insight and judgment. On the day of discharge patient denied any suicidal or homicidal ideations intent or plan denied any auditory or visual hallucinations. Patient endorsed wanting to live for his health and future. The patient denied any access to guns or weapons. Patient denied any paranoia and did not endorse any delusions. Patient does not have a significant history of substance abuse however was counseled on abstaining from all substances including alcohol and marijuana. Patient was also counseled on the medications and need for regular compliance and was encouraged to follow-up with their outpatient appointment for mental health and also for primary care. perinatal social worker contacted guardian about patient's hospitalization and coordinate his discharge to the skilled nursing today. Mental status exam: General Appearance: Patient appears to be overweight, older than stated age is alert, pleasant, and cooperative. Patient is in no acute distress and has improved hygiene and grooming Behavior: Patient is calmly seated without any agitated behavior. Speech: Patient's speech is fluent and nonpressured. Mood/Affect: Patient reports their mood is "better", affect is congruent and constricted Suicidality/Homicidality: Patient denies having any suicidal or homicidal ideation intent or plan. Perceptions: Patient denies any auditory or visual hallucinations. Though content/process: There is no evidence of any delusional thought content and thought process is linear and goal-directed. concrete Memory and concentration: AOX3, grossly intact for the purposes of this session. Can spell "WORLD" backwards correctly. Judgment and insight: chronically poor, however has improved with guarded prognosis Impression: Schizoaffective disorder depressive type Homelessness Nicotine dependence Plan: -Continue with discharge today as patient has improved and stabilized psychiatrically and is not currently an imminent threat to himself and/or others. Patient will remain at chronically elevated risk for harm to self and/or others due to his chronically poor insight. -Continue medications: Continue Zoloft 50 mg daily for mood/anxiety, oral invega was d/c. Patient was given Invega Sustenna IM 117 mg on 12/25/20 and will be due for his next monthly injection on 01/22. -Patient was counseled on the need for medication compliance and appropriate follow-up at mental health and also primary care for medical issues. Patient verbalized understanding and agreed. -Social work to arrange and coordinate with guardian patient's discharge today to the skilled nursing. Social work also to arrange for patients follow up appointments with [facility] for psychiatric care along with follow up with primary care provider. -Patient counseled on abstaining from recreational drugs and marijuana and alcohol. Was informed/educated on the adverse effects on their physical and mental health. Patient verbally agreed and understood. -Patient was instructed to return to the hospital or seek immediate medical care if their psychiatric or medical symptoms do worsen or reoccur. Allergies Allergy/AdvReac Type Severity Reaction Status Date / Time No Known Allergies Allergy Verified 12/23/20 16:07 Laboratory Results WBC 8.5 k/uL (3.8-10.6) 12/24/20 07:14 RBC 5.51 m/uL (4.30-5.90) 12/24/20 07:14 Hgb 16.4 gm/dL (13.0-17.5) 12/24/20 07:14 Hct 51.2 % (39.0-53.0) 12/24/20 07:14 MCV 92.9 fL (80.0-100.0) 12/24/20 07:14 MCH 29.7 pg (25.0-35.0) 12/24/20 07:14 MCHC 32.0 g/dL (31.0-37.0) 12/24/20 07:14 RDW 14.0 % (11.5-15.5) 12/24/20 07:14 Plt Count 279 k/uL (150-450) 12/24/20 07:14 MPV 7.1 12/24/20 07:14 Neutrophils % 56 % 12/24/20 07:14 Lymphocytes % 32 % 12/24/20 07:14 Monocytes % 7 % 12/24/20 07:14 Eosinophils % 3 % 12/24/20 07:14 Basophils % 1 % 12/24/20 07:14 Neutrophils # 4.8 k/uL (1.3-7.7) 12/24/20 07:14 Lymphocytes # 2.7 k/uL (1.0-4.8) 12/24/20 07:14 Monocytes # 0.6 k/uL (0-1.0) 12/24/20 07:14 Eosinophils # 0.3 k/uL (0-0.7) 12/24/20 07:14 Basophils # 0.1 k/uL (0-0.2) 12/24/20 07:14 Sodium 137 mmol/L (137-145) 12/24/20 07:14 Potassium 4.8 mmol/L (3.5-5.1) 12/24/20 07:14 Chloride 102 mmol/L (98-107) 12/24/20 07:14 Carbon Dioxide 26 mmol/L (22-30) 12/24/20 07:14 Anion Gap 9 mmol/L 12/24/20 07:14 BUN 15 mg/dL (9-20) 12/24/20 07:14 Creatinine 0.96 mg/dL (0.66-1.25) 12/24/20 07:14 Est GFR (CKD-EPI)AfAm >90 (>60 ml/min/1.73 sqM) 12/24/20 07:14 Est GFR (CKD-EPI)NonAf >90 (>60 ml/min/1.73 sqM) 12/24/20 07:14 Glucose 108 mg/dL (74-99) H 12/24/20 07:[address] Glu mg/dL 120 12/24/20 07:14 Hemoglobin A1c 5.8 % (4.0-6.0) 12/24/20 07:14 Calcium 9.7 mg/dL (8.4-10.2) 12/24/20 07:14 Total Bilirubin 0.8 mg/dL (0.2-1.3) 12/24/20 07:14 AST 33 U/L (17-59) 12/24/20 07:14 ALT 26 U/L (4-49) 12/24/20 07:14 Alkaline Phosphatase 68 U/L (38-126) 12/24/20 07:14 Total Protein 7.4 g/dL (6.3-8.2) 12/24/20 07:14 Albumin 4.7 g/dL (3.5-5.0) 12/24/20 07:14 Triglycerides 131.0 mg/dL (0.0-149.0) 12/24/20 07:14 Cholesterol 180 mg/dL (0-200) 12/24/20 07:14 LDL Cholesterol, Calc 96.8 mg/dL (0.0-131.0) 12/24/20 07:14 VLDL Cholesterol, Calc 26.20 mg/dL (5.00-40.00) 12/24/20 07:14 HDL Cholesterol 57.0 mg/dL (40.0-60.0) 12/24/20 07:14 Cholesterol/HDL Ratio 3.16 12/24/20 07:14 TSH 2.150 mIU/L (0.465-4.680) 12/24/20 07:14 Urine Opiates Screen Not Detected (NotDetected) 12/23/20 14:32 Ur Oxycodone Screen Not Detected (NotDetected) 12/23/20 14:32 Urine Methadone Screen Not Detected (NotDetected) 12/23/20 14:32 Ur Propoxyphene Screen Not Detected (NotDetected) 12/23/20 14:32 Ur Barbiturates Screen Not Detected (NotDetected) 12/23/20 14:32 U Tricyclic Antidepress Not Detected (NotDetected) 12/23/20 14:32 Ur Phencyclidine Scrn Not Detected (NotDetected) 12/23/20 14:32 Ur Amphetamines Screen Not Detected (NotDetected) 12/23/20 14:32 U Methamphetamines Scrn Not Detected (NotDetected) 12/23/20 14:32 U Benzodiazepines Scrn Not Detected (NotDetected) 12/23/20 14:32 Urine Cocaine Screen Not Detected (NotDetected) 12/23/20 14:32 U Marijuana (THC) Screen Not Detected (NotDetected) 12/23/20 14:32 Serum Alcohol 12 mg/dL 12/23/20 14:32 Coronavirus (PCR) Not Detected (Not Detectd) 12/23/20 16:49 Vital Signs Temp 97.8 F 12/26/20 09:28 Pulse 62 12/26/20 06:40 Resp 16 12/26/20 06:40 BP 134/90 12/26/20 06:40 Pulse Ox 97 12/24/20 06:46 Patient Condition at Discharge: Stable Plan - Discharge Summary Discharge Rx Participant: No New Discharge Prescriptions: New Nicotine 14Mg/24Hr Patch [Habitrol] 1 patch TRANSDERM DAILY 14 Days patch Clotrimazole Cream [Lotrimin Cream] 1 applic TOPICAL BID #1 applic Sertraline [Zoloft] 50 mg PO DAILY 30 Days tab Changed Paliperidone Palmitate [Invega Sustenna] 117 mg IM QMONTHLY #1 ml Discontinued Nicotine 14Mg/24Hr Patch [Habitrol] 1 patch TRANSDERM DAILY PRN PRN Reason: Nicotine Cravings Paliperidone [Invega] 6 mg PO HS 4 Days tab.er.24 Paliperidone IM [Invega Sustenna] 156 mg IM ONCE #1 syr Sertraline [Zoloft] 50 mg PO DAILY 30 Days tab Discharge Medication List Clotrimazole Cream [Lotrimin Cream] 1 applic TOPICAL BID #1 applic 12/26/20 [Rx] Nicotine 14Mg/24Hr Patch [Habitrol] 1 patch TRANSDERM DAILY 14 Days patch 12/26/20 [Rx] Paliperidone Palmitate [Invega Sustenna] 117 mg IM QMONTHLY #1 ml 12/26/20 [Rx] Sertraline [Zoloft] 50 mg PO DAILY 30 Days tab 12/26/20 [Rx] Follow up Appointment(s)/Referral(s): [facility] [Outside] - 01/01/21 11:30 am (01-02-21 @ 10:[address] Gomez at [facility] office Lauren Quain 01-01-21 @ 11:30 at [facility] office ) [facility] [NON-STAFF] - 1 Week Patient Instructions/Handouts: How to Stop Smoking (DC), Schizoaffective Disorder (DC) Discharge Disposition: OTHER INSTITUTION NOT DEFINED
== END 2020-12-26 12:07 | disposition home or self-care (01) | DRG 885 ==
LOC: EC 13:35 → 3MHU 17:43
PROVIDERS: ADMIT Psychiatry & Neurology Psychiatry; ATTEND Psychiatry & Neurology Psychiatry
DX: F25.1 Schizoaffective disorder, depressive type (principal); R45.851 Suicidal ideations; F41.9 Anxiety disorder, unspecified; Z59.0 Homelessness; F17.210 Nicotine dependence, cigarettes, uncomplicated; Z79.899 Other long term (current) drug therapy; Z91.19 Patient's noncompliance with other medical treatment and regimen; Z20.822 Contact with and (suspected) exposure to COVID-19
CPT/HCPCS: 36415; 80053; 80061; 80306; 80320; 82075; 83036; 84443; 85025; 87635; 99285

== ENCOUNTER 2022-02-08 23:00 | Emergency (ER) | payer OTHER ==
[2022-02-08 23:30] VITALS: BP 158/99; RESP 20; TEMP 98.7
--- NOTE | 2022-02-09 02:16 | ED ---
Psych HPI <Praneeth Kinney - Last Filed: 02/09/22 05:46> - General Source: patient, RN notes reviewed, old records reviewed Mode of arrival: ambulatory - History of Present Illness MD Complaint: other ("Feel like I'm having a mental breakdown") -: week(s) (2) History of same: Yes Quality: constant Associated Symptoms: denies other symptoms Treatments Prior to Arrival: none <Rancho Gauthier - Last Filed: 02/09/22 18:05> - General Chief Complaint: Psychiatric Symptoms Stated Complaint: Mental health Time Seen by Provider: 02/09/22 02:00 - History of Present Illness Initial Comments: 36-year-old male presents ambulatory with complaints of feeling like he's having a mental breakdown. Patient states he was just released from senior care on January 24 and is homeless. He does have a history of schizoaffective disorder. He was on medication in the past, but he has not been on medication for a long time. Patient states he does not the name of the medication but it was a shot. He denies any suicidal or homicidal ideation. Denies any alcohol or drug use. He denies any nausea, vomiting, diarrhea or fevers. No pain at this time. (Rancho Gauthier) - Related Data Previous Rx's Medication Instructions Recorded Clotrimazole Cream [Lotrimin Cream] 1 applic TOPICAL BID #1 applic 12/26/20 Nicotine 14Mg/24Hr Patch [Habitrol] 1 patch TRANSDERM DAILY 14 Days 12/26/20 patch Paliperidone Palmitate [Invega 117 mg IM QMONTHLY #1 ml 12/26/20 Sustenna] Sertraline [Zoloft] 50 mg PO DAILY 30 Days tab 12/26/20 Allergies Allergy/AdvReac Type Severity Reaction Status Date / Time No Known Allergies Allergy Verified 12/23/20 16:07 Review of Systems ROS Other: All systems not noted in ROS Statement are negative. <Praneeth Kinney - Last Filed: 02/09/22 05:46> ROS Other: All systems not noted in ROS Statement are negative. <Rancho Gauthier - Last Filed: 02/09/22 18:05> ROS Statement: Those systems with pertinent positive or pertinent negative responses have been documented in the HPI. Past Medical History Past Medical History: No Reported History Additional Past Medical History / Comment(s): Possible history of hypertension and used to be on Coreg. History of Any Multi-Drug Resistant Organisms: MRSA Date of last positivie culture/infection: 2017 MDRO Source:: right second finger. Past Surgical History: No Surgical Hx Reported Past Psychological History: Schizophrenia Smoking Status: Current some day smoker Past Alcohol Use History: Occasional - Past Family History Father Family Medical History: No Reported History Mother Family Medical History: No Reported History <Rancho Gauthier - Last Filed: 02/09/22 18:05> General Exam Limitations: no limitations General appearance: alert, in no apparent distress Head exam: Present: atraumatic, normocephalic Eye exam: Present: normal appearance. Absent: scleral icterus, conjunctival injection, periorbital swelling ENT exam: Present: mucous membranes moist Neck exam: Present: normal inspection. Absent: tenderness, meningismus Respiratory exam: Present: normal lung sounds bilaterally. Absent: respiratory distress, accessory muscle use Cardiovascular Exam: Present: tachycardia GI/Abdominal exam: Present: soft Extremities exam: Present: normal capillary refill Back exam: Absent: tenderness Neurological exam: Present: alert, oriented X3, normal gait Psychiatric exam: Present: normal affect, normal mood. Absent: agitated, anxious, manic, homicidal ideation, suicidal ideation Skin exam: Present: warm, dry, normal color. Absent: cyanosis, diaphoretic <Rancho Gauthier - Last Filed: 02/09/22 18:05> Course Vital Signs 02/08/22 02/09/22 23:23 02:35 Temperature 98.7 F Pulse Rate 126 H 96 Respiratory 20 Rate Blood Pressure 158/99 O2 Sat by Pulse 98 Oximetry Medical Decision Making <Rancho Gauthier - Last Filed: 02/09/22 18:05> - Medical Decision Making Urine drug screen is negative. BAT negative. Vital signs are stable. He denies any suicidal or homicidal ideations. He is calm and cooperative. Patient does have history of schizoaffective disorder. States he has not been on medication for a long time. Feels as though he is having a mental breakdown. Patient to be seen by EPS. Case signed out to Dr Kinney (Rancho Gauthier) - Lab Data Lab Results 02/09/22 Range/Units 01:58 Urine Opiates Screen Not Detected (NotDetected) Ur Oxycodone Screen Not Detected (NotDetected) Urine Methadone Screen Not Detected (NotDetected) Ur Propoxyphene Screen Not Detected (NotDetected) Ur Barbiturates Screen Not Detected (NotDetected) U Tricyclic Antidepress Not Detected (NotDetected) Ur Phencyclidine Scrn Not Detected (NotDetected) Ur Amphetamines Screen Not Detected (NotDetected) U Methamphetamines Scrn Not Detected (NotDetected) U Benzodiazepines Scrn Not Detected (NotDetected) Urine Cocaine Screen Not Detected (NotDetected) U Marijuana (THC) Screen Not Detected (NotDetected) Disposition Is patient prescribed a controlled substance at d/c from ED?: No <Praneeth Kinney - Last Filed: 02/09/22 05:46> <Rancho Gauthier - Last Filed: 02/09/22 18:05> Clinical Impression: Depression Disposition: HOME SELF-CARE Condition: Fair Instructions (If sedation given, give patient instructions): Depression (ED) Referrals: None,Stated [Primary Care Provider] - 1-2 days
[2022-02-09 02:35] VITALS: PULSE 96
[2022-02-09 03:02] LABS: Amphetamine Screen,Urine Not Detected (NotDetected); Barbiturate Screen,Urine Not Detected (NotDetected); Benzodiazepines Screen,Urine Not Detected (NotDetected); Cocaine Screen,Urine Not Detected (NotDetected); Methadone Screen, Urine Not Detected (NotDetected); Opiate Screen,Urine Not Detected (NotDetected); Oxycodone Screen, Urine Not Detected (NotDetected); Phencyclidine Screen,Urine Not Detected (NotDetected); Tricyclic Antidepressant,Urine Not Detected (NotDetected); Urn Cannabinoid Scrn Not Detected (NotDetected)
== END 2022-02-09 06:17 | disposition home or self-care (01) ==
LOC: EC 23:00
DX: F32.A Depression, unspecified (principal); F17.200 Nicotine dependence, unspecified, uncomplicated
CPT/HCPCS: 80306; 82075; 99284

== ENCOUNTER 2022-02-24 14:31 | Inpatient (IN) | payer MEDICAID, OTHER ==
--- NOTE | 2022-02-24 15:48 | ED ---
General Adult HPI - General Chief complaint: Psychiatric Symptoms Stated complaint: Petition Time Seen by Provider: 02/24/22 15:40 Source: police Mode of arrival: ambulatory Limitations: no limitations - History of Present Illness Initial comments: 36-year-old male with past medical history of schizophrenia presents to the emergency department with a court-ordered petition. Petition is filled out by the public guardian. States that the patient has poor eye contact, unkempt. Reports that he is not eating or drinking, appears to be responding to internal stimuli. Addition as stated for today. Police did hop picker the patient in transfer him to the hospital. He states that me that something is "off". Denies taking any medications for his mental health. Admits to feeling depressed and states that "I do the best that I can do". Denies any suicidal thoughts. Is aware that he is at the hospital for mental health evaluation. No other alleviating, precipitating or modifying factors - Related Data Home Medications Medication Instructions Recorded Confirmed No Known Home Medications 02/24/22 02/25/22 Allergies Allergy/AdvReac Type Severity Reaction Status Date / Time No Known Allergies Allergy Verified 02/25/22 00:56 Review of Systems ROS Statement: Those systems with pertinent positive or pertinent negative responses have been documented in the HPI. ROS Other: All systems not noted in ROS Statement are negative. Past Medical History Past Medical History: No Reported History Additional Past Medical History / Comment(s): Possible history of hypertension and used to be on Coreg. History of Any Multi-Drug Resistant Organisms: MRSA Date of last positivie culture/infection: 2017 MDRO Source:: right second finger. Past Surgical History: No Surgical Hx Reported Past Psychological History: Schizophrenia Smoking Status: Current some day smoker Past Alcohol Use History: Occasional - Past Family History Father Family Medical History: No Reported History Mother Family Medical History: No Reported History General Exam Limitations: no limitations General appearance: alert, in no apparent distress Head exam: Present: atraumatic, normocephalic, normal inspection Eye exam: Present: normal appearance, PERRL, EOMI. Absent: scleral icterus, conjunctival injection, periorbital swelling ENT exam: Present: normal exam, mucous membranes moist Neck exam: Present: normal inspection. Absent: tenderness, meningismus, lymphadenopathy Respiratory exam: Present: normal lung sounds bilaterally. Absent: respiratory distress, wheezes, rales, rhonchi, stridor Cardiovascular Exam: Present: regular rate, normal rhythm, normal heart sounds. Absent: systolic murmur, diastolic murmur, rubs, gallop, clicks GI/Abdominal exam: Present: soft, normal bowel sounds. Absent: distended, tenderness, guarding, rebound, rigid Extremities exam: Present: normal inspection, full ROM, normal capillary refill. Absent: tenderness, pedal edema, joint swelling, calf tenderness Back exam: Present: normal inspection Neurological exam: Present: alert, CN II-XII intact Psychiatric exam: Present: flat affect Skin exam: Present: warm, dry, intact, normal color. Absent: rash Course Vital Signs 02/24/22 02/24/22 02/24/22 14:39 18:41 23:35 Temperature 98.5 F 98.6 F 97.3 F L Pulse Rate 92 92 Pulse Rate [ 76 Left Sitting] Respiratory 18 16 15 Rate Blood Pressure 157/73 152/107 Blood Pressure 150/95 [Left Arm Sitting] O2 Sat by Pulse 98 100 98 Oximetry Medical Decision Making - Medical Decision Making Patient was placed into room 11. I evaluated the patient myself. He is not under the influence of any drugs or alcohol therefore is able to be evaluated by EPS at this time - Lab Data Result diagrams: 02/25/22 07:23 02/25/22 07:23 Lab Results 02/24/22 02/24/22 02/24/22 Range/Units 16:15 16:55 20:25 Urine Color Yellow Urine Appearance Clear (Clear) Urine pH 6.5 (5.0-8.0) Ur Specific [place] 1.025 (1.001-1.035) Urine Protein 1+ H (Negative) Urine Glucose (UA) 1+ H (Negative) Urine Ketones Trace H (Negative) Urine Blood Negative (Negative) Urine Nitrite Negative (Negative) Urine Bilirubin Negative (Negative) Urine Urobilinogen <2.0 (<2.0) mg/dL Ur Leukocyte Esterase Negative (Negative) Urine RBC 1 (0-5) /hpf Urine WBC 1 (0-5) /hpf Ur Renal Epithelial Cell 1 (0) /hpf Urine Mucus Moderate H (None) /hpf Urine Opiates Screen Not Detected (NotDetected) Ur Oxycodone Screen Not Detected (NotDetected) Urine Methadone Screen Not Detected (NotDetected) Ur Propoxyphene Screen Not Detected (NotDetected) Ur Barbiturates Screen Not Detected (NotDetected) U Tricyclic Antidepress Not Detected (NotDetected) Ur Phencyclidine Scrn Not Detected (NotDetected) Ur Amphetamines Screen Not Detected (NotDetected) U Methamphetamines Scrn Not Detected (NotDetected) U Benzodiazepines Scrn Not Detected (NotDetected) Urine Cocaine Screen Not Detected (NotDetected) U Marijuana (THC) Screen Not Detected (NotDetected) Coronavirus (PCR) Not Detected (Not Detectd) Disposition Clinical Impression: Depression Disposition: TRANSFER TO PSYCH HOSP/UNIT Condition: Stable Is patient prescribed a controlled substance at d/c from ED?: No
[2022-02-24 17:00] LABS: Appearance,Urine Clear (Clear); Bilirubin,Urine Negative (Negative); Blood,Urine Negative (Negative); Color,Urine Yellow; Glucose,Urine (UA) 1+ (Negative); Ketones,Urine Trace (Negative); Leukocyte Esterase,Urine Negative (Negative); Mucus,Urine Moderate /hpf; Nitrite,Urine Negative (Negative); PH, Urine 6.5 (5.0-8.0); Protein,Urine 1+ (Negative); RBC,Urine 1 /hpf (0-5); Renal Epithelial Cells,Urine 1 /hpf (0); Specific Gravity,Urine 1.025 (1.001-1.035); Urobilinogen,Urine <2.0 mg/dL (<2.0); WBC,Urine 1 /hpf (0-5)
[2022-02-24 17:06] LABS: Amphetamine Screen,Urine Not Detected (NotDetected); Barbiturate Screen,Urine Not Detected (NotDetected); Benzodiazepines Screen,Urine Not Detected (NotDetected); Cocaine Screen,Urine Not Detected (NotDetected); Methadone Screen, Urine Not Detected (NotDetected); Opiate Screen,Urine Not Detected (NotDetected); Oxycodone Screen, Urine Not Detected (NotDetected); Phencyclidine Screen,Urine Not Detected (NotDetected); Tricyclic Antidepressant,Urine Not Detected (NotDetected); Urn Cannabinoid Scrn Not Detected (NotDetected)
[2022-02-24] MEDS ORDERED: ACETAMINOPHEN TAB 325 MG TAB PO PRN (23:38)
[2022-02-24] MEDS ORDERED: LORazepam 1 MG TAB PO PRN (23:38)
[2022-02-24] MEDS ORDERED: MAGNESIUM HYDROXIDE 2,400 MG/10 ML CUP PO PRN (23:38)
[2022-02-24] MEDS ORDERED: HALOPERIDOL LACTATE 5 MG/ML 1 ML VIAL IM PRN (23:38)
[2022-02-24] MEDS ORDERED: MAG HYDROX/AL HYDROX/SIMETH 30 ML CUP PO PRN (23:38)
[2022-02-24] MEDS ORDERED: haloperidoL 5 MG TAB PO PRN (23:40)
[2022-02-24] MEDS ORDERED: traZODone HCL 100 MG TAB PO PRN (23:40)
[2022-02-24] MEDS ORDERED: LORazepam 2 MG/ML INJ IM PRN (23:40)
[2022-02-25 07:58] LABS: Basophils # (A) 0.1 k/uL (0-0.2); Basophils % (A) 1 %; Eosinophils # (A) 0.2 k/uL (0-0.7); Eosinophils % (A) 2 %; HCT 45.9 % (39.0-53.0); HGB 14.5 gm/dL (13.0-17.5); Lymphocytes # (A) 2.1 k/uL (1.0-4.8); Lymphocytes % (A) 24 %; MCH 29.8 pg (25.0-35.0); MCHC 31.6 g/dL (31.0-37.0); MCV 94.4 fL (80.0-100.0); Mean Platelet Volume 7.4; Monocytes # (A) 0.5 k/uL (0-1.0); Monocytes % (A) 5 %; Neutrophils # (A) 5.9 k/uL (1.3-7.7); Neutrophils % (A) 67 %; Platelet Count 396 k/uL (150-450); RBC 4.86 m/uL (4.30-5.90); RDW 13.6 % (11.5-15.5); WBC 8.8 k/uL (3.8-10.6)
[2022-02-25 08:22] LABS: ALT 17 U/L (4-49); AST 23 U/L (17-59); African American GFR (CKD) >90 (>60 ml/min/1.73 sqM); Alkaline Phosphatase 81 U/L (38-126); Anion Gap 10 mmol/L; Blood Urea Nitrogen 11 mg/dL (9-20); Calcium 9.4 mg/dL (8.4-10.2); Carbon Dioxide 26 mmol/L (22-30); Chloride 104 mmol/L (98-107); Glucose 109 mg/dL (74-99); Non-African American GFR(CKD) >90 (>60 ml/min/1.73 sqM); Potassium 3.7 mmol/L (3.5-5.1); Sodium 140 mmol/L (137-145); Total Bilirubin 1.3 mg/dL (0.2-1.3); Total Protein 8.1 g/dL (6.3-8.2)
--- NOTE | 2022-02-25 11:53 | P.HP ---
Psychiatric H&P - . H&P Date: 02/25/22 History & Physical: Allergies Allergy/AdvReac Type Severity Reaction Status Date / Time No Known Allergies Allergy Verified 02/25/22 00:56 Vital Signs Temp 97.3 F L 02/24/22 23:35 Pulse 76 02/24/22 23:35 Resp 15 02/24/22 23:35 BP 150/95 02/24/22 23:35 Pulse Ox 98 02/24/22 23:35 FiO2 Intake & Output 02/24/22 02/25/22 02/25/22 18:59 06:59 18:59 Weight 77.111 kg 80.881 kg Laboratory Last Values WBC 8.8 k/uL (3.8-10.6) 02/25/22 07:23 RBC 4.86 m/uL (4.30-5.90) 02/25/22 07:23 Hgb 14.5 gm/dL (13.0-17.5) 02/25/22 07:23 Hct 45.9 % (39.0-53.0) 02/25/22 07:23 MCV 94.4 fL (80.0-100.0) 02/25/22 07:23 MCH 29.8 pg (25.0-35.0) 02/25/22 07:23 MCHC 31.6 g/dL (31.0-37.0) 02/25/22 07:23 RDW 13.6 % (11.5-15.5) 02/25/22 07:23 Plt Count 396 k/uL (150-450) 02/25/22 07:23 MPV 7.4 02/25/22 07:23 Neutrophils % 67 % 02/25/22 07:23 Lymphocytes % 24 % 02/25/22 07:23 Monocytes % 5 % 02/25/22 07:23 Eosinophils % 2 % 02/25/22 07:23 Basophils % 1 % 02/25/22 07:23 Neutrophils # 5.9 k/uL (1.3-7.7) 02/25/22 07:23 Lymphocytes # 2.1 k/uL (1.0-4.8) 02/25/22 07:23 Monocytes # 0.5 k/uL (0-1.0) 02/25/22 07:23 Eosinophils # 0.2 k/uL (0-0.7) 02/25/22 07:23 Basophils # 0.1 k/uL (0-0.2) 02/25/22 07:23 Sodium 140 mmol/L (137-145) 02/25/22 07:23 Potassium 3.7 mmol/L (3.5-5.1) 02/25/22 07:23 Chloride 104 mmol/L (98-107) 02/25/22 07:23 Carbon Dioxide 26 mmol/L (22-30) 02/25/22 07:23 Anion Gap 10 mmol/L 02/25/22 07:23 BUN 11 mg/dL (9-20) 02/25/22 07:23 Creatinine 0.98 mg/dL (0.66-1.25) 02/25/22 07:23 Est GFR (CKD-EPI)AfAm >90 (>60 ml/min/1.73 sqM) 02/25/22 07:23 Est GFR (CKD-EPI)NonAf >90 (>60 ml/min/1.73 sqM) 02/25/22 07:23 Glucose 109 mg/dL (74-99) H 02/25/22 07:23 Calcium 9.4 mg/dL (8.4-10.2) 02/25/22 07:23 Total Bilirubin 1.3 mg/dL (0.2-1.3) 02/25/22 07:23 AST 23 U/L (17-59) 02/25/22 07:23 ALT 17 U/L (4-49) 02/25/22 07:23 Alkaline Phosphatase 81 U/L (38-126) 02/25/22 07:23 Total Protein 8.1 g/dL (6.3-8.2) 02/25/22 07:23 Albumin 5.0 g/dL (3.5-5.0) 02/25/22 07:23 TSH 2.350 mIU/L (0.465-4.680) 02/25/22 07:23 Urine Color Yellow 02/24/22 16:15 Urine Appearance Clear (Clear) 02/24/22 16:15 Urine pH 6.5 (5.0-8.0) 02/24/22 16:15 Ur Specific [place] 1.025 (1.001-1.035) 02/24/22 16:15 Urine Protein 1+ (Negative) H 02/24/22 16:15 Urine Glucose (UA) 1+ (Negative) H 02/24/22 16:15 Urine Ketones Trace (Negative) H 02/24/22 16:15 Urine Blood Negative (Negative) 02/24/22 16:15 Urine Nitrite Negative (Negative) 02/24/22 16:15 Urine Bilirubin Negative (Negative) 02/24/22 16:15 Urine Urobilinogen <2.0 mg/dL (<2.0) 02/24/22 16:15 Ur Leukocyte Esterase Negative (Negative) 02/24/22 16:15 Urine RBC 1 /hpf (0-5) 02/24/22 16:15 Urine WBC 1 /hpf (0-5) 02/24/22 16:15 Ur Renal Epithelial Cell 1 /hpf (0) 02/24/22 16:15 Urine Mucus Moderate /hpf (None) H 02/24/22 16:15 Urine Opiates Screen Not Detected (NotDetected) 02/24/22 16:55 Ur Oxycodone Screen Not Detected (NotDetected) 02/24/22 16:55 Urine Methadone Screen Not Detected (NotDetected) 02/24/22 16:55 Ur Propoxyphene Screen Not Detected (NotDetected) 02/24/22 16:55 Ur Barbiturates Screen Not Detected (NotDetected) 02/24/22 16:55 U Tricyclic Antidepress Not Detected (NotDetected) 02/24/22 16:55 Ur Phencyclidine Scrn Not Detected (NotDetected) 02/24/22 16:55 Ur Amphetamines Screen Not Detected (NotDetected) 02/24/22 16:55 U Methamphetamines Scrn Not Detected (NotDetected) 02/24/22 16:55 U Benzodiazepines Scrn Not Detected (NotDetected) 02/24/22 16:55 Urine Cocaine Screen Not Detected (NotDetected) 02/24/22 16:55 U Marijuana (THC) Screen Not Detected (NotDetected) 02/24/22 16:55 Coronavirus (PCR) Not Detected (Not Detectd) 02/24/22 20:25 02/25/22 11:48 IDENTIFYING DATA: Patient is a 36-year-old -[place] male who is currently homeless has a public guardian and a history of schizoaffective disorder. HPI: Patient presented to the hospital yesterday for complaints of depression and suicidal thoughts. Patient was also noted to be responding to internal stimuli and evaluation. Patient was brought in by the police for mental health evaluation. Patient's guardian petitioned patient and stated that patient is "unable to make eye contact, parroting conversation, demonstrating behavior consistent with tics, increased paranoia, appears to be distracted by internal stimuli". Patient was also reported the having strange behavior according to condition and needs reminders to eat complete hygiene and reporting increase paranoia. Patient has a chronic history of schizoaffective disorder previously on a court order however this . He was also previously on a long-acting injection. Patient apparently has not been following up with [facility] for medications or mental health follow-up. Patient's case was recently closed by [facility]. Patient's urine drug screen was negative. He was admitted involuntarily to the mental health unit. Patient was seen wandering the hallways and approach by typewriter aligner. He appeared to be paranoid and suspicious of typewriter aligner. He also was somewhat intimidating to typewriter aligner. He was agreeable to speak in his room. He was very concrete and took quite some time to answer simple questions. He claims t hat he does know why he is in the hospital. He kept on referring to his guardian or his mother as to what his symptoms are and about what occurred. She appears to be responding to internal stimuli. She has very poor insight and judgment and believes that he does not need medications. Poor hygiene and grooming. Has not been following up or taking medications. He is denying any auditory hallucinations. He denies any visual hallucinations. Patient denies any flight of ideas racing thoughts and increased in goal directed behavior. Currently he is denying any suicidal thoughts or any homicidal ideations. Patient admits to using cigarettes daily however denies any other recreational drug use. PAST PSYCHIATRIC HISTORY: Patient states that she is a history of schizoaffective disorder. Patient was previously on Invega Sustenna however it is unknown the last injection dose that he is received from [facility]. Patient's case is currently close with [facility]. Patient was last psychiatrically hospitalized on the mental health unit in December 2020. He states that he is to go to [facility] however has not followed up. Patient denies any history of suicide attempts in the past. PMH:denies ALLERGIES: as per EMR CHEMICAL DEPENDENCY HISTORY: as per HPI FAMILY PSYCHIATRIC/SUBSTANCE USE HISTORY: denies SOCIAL HISTORY: Patient was born and raised in [place]. He states that he completed up to 11th grade. He claims that he dropped out of high school afterwards. He states that he did not work after high school and is currently collecting Social Security. He has a public guardian. He denies having any kids and is unmarried. He states that he is currently homeless. He claims that he has been jailed in the past however cannot remember what charges he's had. MENTAL STATUS EXAM: General Appearance: Patient appears to be well-built, stated age is alert, several tattoos, directable, and attempts to cooperate. Patient appears to have poor hygiene and grooming. Behavior: Patient is seated without any agitated behavior. Constricted. [place] appears to be paranoid. Responding to internal stimuli. Speech: Patient's speech is fluent and nonpressured. [place]. Monotone. Mood/Affect: Patient reports their mood is depressed, affect is congruent and constricted. Suicidality/Homicidality: Patient denies having any homicidal ideation intent or plan. Denies any suicidal ideations intent or plan Perceptions: Patient denies any visual hallucinations he states that he is hearing voices. Though content/process: [place], poverty of content. Not endorsing delusions. Memory and concentration: AOX3, grossly intact for the purposes of this session. Cannot spell "WORLD" backwards Judgment and insight: Chronically poor STRENGTHS/WEAKNESSES: strength is that patient is resilient. Weakness is that patient has poor judgment and has chronic mental illness, homelessness INTELLECT: average IMPRESSIONS: Schizoaffective disorder, depressive type Homelessness Nicotine dependence PLAN: -Patient is admitted under involuntary status to MHU for stabilization of psychiatric symptoms and safety. A second certificate was completed and filed with courts. -Medications : Will start patient on Zoloft 50 mg daily at bedtime for depression/anxiety. .Patient's case is currently close a [facility] and has not received long-acting injection in quite some time. We'll start 3 mg paliperidone daily at bedtime for psychosis and plan will be to transition onto long-acting injection . -Ativan and Haldol PRN for agitation/aggression -Patient was informed of the risks, benefits and side effects of the medication and patient verbally consented to taking the medications. Patient did not sign med consent form and was placed in chart. -Internal Medicine consult to perform medical evaluation and physical. -NRT - nicotine patch -SW on board for discharge planning. Encourage patient to participate in groups to work on coping skills. Will await deferral and full court hearing date.
[2022-02-25] MEDS: SERTRALINE 50 MG TAB PO SCH (12:12)
[2022-02-25 15:59] LABS: Chol/HDL Ratio 3.21 Ratio; LDL Cholesterol,Calculated 94.3 mg/dL (0.0-131.0); VLDL Calculation 15.12 mg/dL (5.00-40.00)
[2022-02-25] MEDS ORDERED: PALIPERIDONE 3 MG TAB.ER.24 PO SCH (21:00)
--- NOTE | 2022-02-26 00:55 | P.CONS ---
History of Present Illness - Reason for Consult Consult date: 02/25/22 - History of Present Illness The patient is a 36-year-old male with a PMH of schizophrenia who was brought into the emergency room under police custody for a petition that was filled out by the public guardian due to worsening psychosis. The patient was guarded during the interview and was not very forthcoming with complaints. He denied any physical complaints at the time of interview. Denies experiencing chest discomfort, shortness of breath, fever, chills, cough, nausea, vomiting, abdominal pain, diarrhea. Refused to answer questions regarding tobacco, alcohol, or substance use. Reported that he does not know why he is at the hospital and that he believes he should be allowed to leave as soon as possible. Review of systems: Pertinent positives and negatives as discussed in HPI, a complete review of systems was performed and all other systems are negative. Physical examination: General: non toxic, no distress, appears at stated age, overweight Derm: no unusual rashes/lesions, no unusual ecchymoses, warm, dry Head: atraumatic, normocephalic, symmetric Eyes: EOMI, no lid lag, anicteric sclera ENT: Nose and ears atraumatic, no thrush, no pharyngeal erythema Neck: trachea midline, supple Mouth: no lip lesion, mucus membranes moist Cardiovascular: S1S2 reg, no murmur, no edema Lungs: CTA bilateral, no rhonchi, no rales , no accessory muscle use Abdominal: soft, nontender to palpation, no guarding Ext: no gross muscle atrophy, no contractures, Neuro: No gross focal neuro deficits noted Psych: Alert, oriented, guarded and anxious affect Assessment/plan Psychosis -As per psychiatry Thank you for allowing us to participate in the care of this patient. We will follow peripherally. Do not hesitate to contact us with questions. Someone can be reached from the [facility] [place]Note 2[place] hospitalist group at all hours of the day at [phone]. Past Medical History Past Medical History: No Reported History Additional Past Medical History / Comment(s): Possible history of hypertension and used to be on Coreg. History of Any Multi-Drug Resistant Organisms: MRSA Year Discovered:: 2018 MDRO Source:: right second finger. Past Surgical History: No Surgical Hx Reported Past Psychological History: Schizophrenia Smoking Status: Current some day smoker Past Alcohol Use History: Occasional Past Drug Use History: None Reported, Cocaine, Heroin, Marijuana, Methamphetamine Additional Drug Use History / Comment(s): pt denies drug use history; history of cocaine, heroin, marijuana, and methamphetamine use was indicated in pt's medical record. - Past Family History Father Family Medical History: No Reported History Mother Family Medical History: Unable to Obtain Additional Family Medical History / Comment(s): Patient refused to answer questions regarding family history Medications and Allergies Home Medications Medication Instructions Recorded Confirmed Type No Known Home Medications 02/24/22 02/25/22 History Allergies Allergy/AdvReac Type Severity Reaction Status Date / Time No Known Allergies Allergy Verified 02/25/22 00:56 Results CBC & Chem 7: 02/25/22 07:23 02/25/22 07:23 Labs: Abnormal Lab Results - Last 24 Hours (Table) 02/25/22 Range/Units 07:23 Glucose 109 H (74-99) mg/dL
--- NOTE | 2022-02-26 08:51 | P.PN ---
Progress Note - Text Progress Note Date: 02/26/22 Interval History: Patient was seen [wandering the hallways] and was directable and agreeable to speak with mortgage or loan underwriter in the office. He states that he was getting ready to go shower today. He claims that he has been taking his medications however has not been going to many groups. Continues to be fairly concrete however today was not responding to internal stimuli. He continues to have a poverty of content and poverty of thought. He appeared to be superficially cooperative today. At this time patient denies any suicidal or homical ideations, intent or plan. Patient denies any auditory, visual hallucinations and not endorsing any paranoia or delusions. Patient denies any side effects from the medications and has been compliant with meds. Mental Status Exam: General Appearance: Patient appears to be well-built, stated age is alert, several tattoos, directable, and attempts to cooperate. Patient appears to have improving hygiene and grooming. Behavior: Patient is seated without any agitated behavior. Constricted. [place] appears to be paranoid, improving. not Responding to internal stimuli today Speech: Patient's speech is fluent and nonpressured. [place]. Monotone. Mood/Affect: Patient reports their mood is "alright", affect is congruent and constricted. Suicidality/Homicidality: Patient denies having any homicidal ideation intent or plan. Denies any suicidal ideations intent or plan Perceptions: Patient denies any visual hallucinations or auditory hallucinati ons. Though content/process: [place], poverty of content. Not endorsing delusions. Memory and concentration: AOX3, grossly intact for the purposes of this session. Judgment and insight: Chronically poor IMPRESSIONS: Schizoaffective disorder, depressive type Homelessness Nicotine dependence Plan: -Patient continues to meet criteria for inpatient psychiatric admission for symptom stabilization and safety. Patient has [not] signed [adult voluntary form and] [medication consent] and was placed in patient's chart. -Medications: continue Zoloft 50 mg daily at bedtime for depression/anxiety. in crease 3 mg paliperidone daily at bedtime for psychosis and plan will be to transition onto long-acting injection. -When necessary Ativan and Haldol for agitation/aggression. -NRT - [nicotine patch] -SW on board for discharge planning. Encouraged the patient to participate in milieu. Currently awaiting deferral with real estate associate attorney and court date. Likely discharge next week after patient is transitioned onto [facility].
[2022-02-26] MEDS: SERTRALINE 50 MG TAB PO SCH (08:53)
[2022-02-26] MEDS ORDERED: PALIPERIDONE 3 MG TAB.ER.24 PO SCH (21:00)
[2022-02-27] MEDS: SERTRALINE 50 MG TAB PO SCH (10:12)
[2022-02-27 10:47] LABS: Appearance,Urine Clear (Clear); Bilirubin,Urine Negative (Negative); Blood,Urine Negative (Negative); Color,Urine Light Yellow; Glucose,Urine (UA) Negative (Negative); Ketones,Urine Negative (Negative); Leukocyte Esterase,Urine Negative (Negative); Nitrite,Urine Negative (Negative); Protein,Urine Negative (Negative); Specific Gravity,Urine 1.013 (1.001-1.035); Urobilinogen,Urine <2.0 mg/dL (<2.0)
--- NOTE | 2022-02-27 11:54 | P.PN ---
Progress Note - Text Progress Note Date: 02/27/22 Interval History: Patient was seen lying in his bed this morning and was directable and agreeable to speak with newspaper writer. He continues to be fairly concrete and have poverty of content and thought blocking at times during conversation. He was not again responding to internal stimuli. Mildly suspicious of newspaper writer however this has been improving. He would answer most questions with "it's alright". He states that he did shower yesterday and has been eating fairly. He claims that his sleep has been fair. He has not been going to many groups. He appeared to be superficially cooperative today. Continues to have poor insight. He did not defer yesterday with his assistant county attorney. I went over again the court process with him which she is agreeable to. At this time patient denies any suicidal or homical ideations, intent or plan. Patient denies any auditory, visual hallucinations. Patient denies any side effects from the medications and has been compliant with meds. Mental Status Exam: General Appearance: Patient appears to be well-built, stated age is alert, several tattoos, directable, and attempts to cooperate. Patient appears to have improving hygiene and grooming. Behavior: Patient is seated without any agitated behavior. Constricted. [place] appears to be paranoid, improving. not Responding to internal stimuli today Speech: Patient's speech is fluent and nonpressured. [place]. Monotone. Mood/Affect: Patient reports their mood is "its alright", affect is congruent an d constricted. Suicidality/Homicidality: Patient denies having any homicidal ideation intent or plan. Denies any suicidal ideations intent or plan Perceptions: Patient denies any visual hallucinations or auditory hallucinations. Though content/process: [place], poverty of content. Not endorsing delusions. mildly suspicious Memory and concentration: AOX3, grossly intact for the purposes of this session. Judgment and insight: Chronically poor IMPRESSIONS: Schizoaffective disorder, depressive type Homelessness Nicotine dependence Plan: -Patient continues to meet criteria for inpatient psychiatric admission for symptom stabilization and safety. Patient has not signed adult voluntary form and medication consent and was placed in patient's chart. -Medications: continue Zoloft 50 mg daily at bedtime for depression/anxiety. increase 9 mg paliperidone daily at bedtime for psychosis and plan will be to transition onto long-acting injection. -When necessary Ativan and Haldol for agitation/aggression. -NRT - nicotine patch -SW on board for discharge planning. Encouraged the patient to participate in milieu. Patient did not defer with his assistant county attorney and will await court hearing scheudled for wednesday. Likely discharge next week after patient is transitioned onto [facility].
[2022-02-27] MEDS: PALIPERIDONE 3 MG TAB.ER.24 PO SCH (22:06)
[2022-02-28] MEDS: SERTRALINE 50 MG TAB PO SCH (08:58)
--- NOTE | 2022-02-28 14:30 | P.PN ---
Progress Note - Text Progress Note Date: 02/28/22 Interval History: Patient was agreeable to speak with commercial loan underwriter. He continues to present with concre te thoughts, poverty of content, and thought blocking. He denies auditory or visual hallucinations, but towards the end of the assessment he appears to be attending to internal stimuli. He reports medication compliance and denies medication side effects. He responds to most questions by stating "Myself is alright", as he did for questions about his mood, sleep and appetite. At this time, patient denies any suicidal or homicidal ideations, intent or plan. Mental Status Exam: General Appearance: Patient appears stated age, presents to interview room without shoes. Orientation: Alert, and oriented to person, place, time and situation. Behavior: Patient is seated without any agitated behavior, appears guarded. Speech: Patient's speech is fluent and nonpressured, mumbled. Mood/Affect: Patient reports his mood is "Myself is alright", affect is congruent and constricted. Suicidality/Homicidality: Patient denies having any suicidal or homicidal ideation intent or plan. Perceptions: Patient denies any visual hallucinations or auditory hallucinations, but appears to be attending to internal stimuli near end of assessment. Though content/process: [place], poverty of content. Repeats "myself is alright" Memory and concentration: Grossly intact for the purposes of this session. Judgment and insight: Chronically poor IMPRESSIONS: Schizoaffective disorder, depressive type Homelessness Nicotine dependence Plan: -Patient continues to meet criteria for inpatient psychiatric admission for symptom stabilization and safety. Patient has not signed adult voluntary form and medication consent and was placed in patient's chart. -Medications: Continue Zoloft 50 mg daily at bedtime for depression/anxiety. Continue Invega 9 mg at bedtime tonight for psychosis, and increase Invega to 6 mg BID starting tomorrow morning for psychosis. -When necessary Ativan and Haldol for agitation/aggression. -NRT - nicotine patch -Encouraged the patient to participate in milieu.
[2022-02-28] MEDS: PALIPERIDONE 3 MG TAB.ER.24 PO SCH (20:53)
[2022-03-01] MEDS: PALIPERIDONE 6 MG TAB.ER.24 PO SCH ×2 (09:07→20:56)
[2022-03-01] MEDS: SERTRALINE 50 MG TAB PO SCH (09:07)
--- NOTE | 2022-03-01 14:39 | P.PN ---
Progress Note - Text Progress Note Date: 03/01/22 Interval History: Patient was seen laying in his bed and was agreeable to speak with technical document writer. He r esponds to most questions with "alright". He reports "alright" mood, sleep and appetite. He continues to present with concrete thoughts, poverty of content, but much less thought blocking today. He denies auditory or visual hallucinations, and does not appear to attend to internal stimuli today. He reports medication compliance and denies medication side effects. At this time, patient denies any suicidal or homicidal ideations, intent or plan. Mental Status Exam: General Appearance: Patient appears stated age, is laying in bed with covers on. Orientation: Alert, and oriented to person, place, time and situation. Behavior: Patient is calm without any agitated behavior. Speech: Patient's speech is fluent and nonpressured. Mood/Affect: Patient reports his mood is "alright", affect is congruent and constricted. Suicidality/Homicidality: Patient denies having any suicidal or homicidal ideation intent or plan. Perceptions: Patient denies any visual hallucinations or auditory hallucinati ons. Though content/process: [place], poverty of content. Answers most questions with "alright". Memory and concentration: Grossly intact for the purposes of this session. Judgment and insight: Chronically poor, has guardian. IMPRESSIONS: Schizoaffective disorder, depressive type Homelessness Nicotine dependence Plan: -Patient continues to meet criteria for inpatient psychiatric admission for symptom stabilization and safety. Patient has not signed adult voluntary form and medication consent and was placed in patient's chart. -Medications: Continue Zoloft 50 mg daily at bedtime for depression/anxiety. Invega increased to 6 mg BID starting this morning for psychosis. -When necessary Ativan and Haldol for agitation/aggression. -NRT - nicotine patch -Encouraged the patient to participate in milieu.
[2022-03-02] MEDS: SERTRALINE 50 MG TAB PO SCH (08:33)
[2022-03-02] MEDS: PALIPERIDONE 6 MG TAB.ER.24 PO SCH ×2 (08:33→23:02)
--- NOTE | 2022-03-02 12:15 | P.PN ---
Progress Note - Text Progress Note Date: 03/02/22 Interval History: Patient was seen lying in his bed this morning and was directable and agreeable to speak with feature writer. Patient is in isolation today as his roommate tested positive for covid. Patient is not endorsing any covid relaterd sx today and states that he is "alright". He initially fairly concrete and continues to have fairly superficial/poor insight. He has been taking his medications as prescribed. He is not reporting any side effects this time. He claims that he slept fairly last night has not been going to groups. Denying any depression today. At this time patient denies any suicidal or homical ideations, intent or plan. Patient denies any auditory, visual hallucinations. Patient denies any side effects from the medications and has been compliant with meds. Mental Status Exam: General Appearance: Patient appears to be well-built, stated age is alert, several tattoos, directable, and attempts to cooperate. Patient appears to have improving hygiene and grooming. Behavior: Patient is seated without any agitated behavior. Constricted. [place] improving. not Responding to internal stimuli today Speech: Patient's speech is fluent and nonpressured. [place]. Monotone. Mood/Affect: Patient reports their mood is "its alright", affect is congruent and constricted. Suicidality/Homicidality: Patient denies having any homicidal ideation intent or plan. Denies any suicidal ideations intent or plan Perceptions: Patient denies any visual hallucinations or auditory hallucinations. Though content/process: [place], poverty of content. Not endorsing delusions Memory and concentration: AOX3, grossly intact for the purposes of this session. Judgment and insight: Chronically poor IMPRESSIONS: Schizoaffective disorder, depressive type Homelessness Nicotine dependence Plan: -Patient continues to meet criteria for inpatient psychiatric admission for sym ptom stabilization and safety. Patient has not signed adult voluntary form and medication consent and was placed in patient's chart. -Medications: continue Zoloft 50 mg daily at bedtime for depression/anxiety. continue 6 mg paliperidone BID for psychosis and plan will be to transition onto long-acting injection. -When necessary Ativan and Haldol for agitation/aggression. -NRT - nicotine patch -SW on board for discharge planning. Encouraged the patient to participate in milieu. Patient did not defer with his estate attorney and will await court hearing scheudmari for wednesday. Likely discharge after patient is transitioned onto [facility].
[2022-03-03 00:29] VITALS: BP 112/70; PULSE 84; RESP 17; TEMP 99.8
--- NOTE | 2022-03-03 13:00 | P.DS ---
Providers Date of admission: 02/24/22 22:12 Expected date of discharge: 03/02/22 Attending physician: Montana Saleh MD Consults: 02/24/22 23:38 Consult Physician Routine Consulting Provider: Arun Physician Consult Reason/Comments: H&P and medical Do you want consulting provider notified?: Yes Primary care physician: Stated None - Discharge Diagnosis(es) (1) Schizoaffective disorder, depressive type Status: Acute Priority: High (2) Homelessness Status: Acute Priority: Medium (3) Nicotine dependence Status: Acute Priority: Low Hospital Course: Admission HPI: Admission note was completed by [director underwriter sales] "[patient is a 36-year-old - Turkmen male who is currently homeless has a public guardian and a history of schizoaffective disorder. Patient presented to the hospital yesterday for complaints of depression and suicidal thoughts. Patient was also noted to be responding to internal stimuli and evaluation. Patient was brought in by the po lice for mental health evaluation. Patient's guardian petitioned patient and stated that patient is "unable to make eye contact, parroting conversation, demonstrating behavior consistent with tics, increased paranoia, appears to be distracted by internal stimuli". Patient was also reported the having strange behavior according to condition and needs reminders to eat complete hygiene and reporting increase paranoia. Patient has a chronic history of schizoaffective disorder previously on a court order however this . He was also previously on a long-acting injection. Patient apparently has not been following up with [facility] for medications or mental health follow-up. Patient's case was recently closed by [facility]. Patient's urine drug screen was negative. He was admitted involuntarily to the mental health unit. Patient was seen wandering the hallways and approach by director underwriter sales. He appeared to be paranoid and suspicious of director underwriter sales. He also was somewhat intimidating to director underwriter sales. He was a greeable to speak in his room. He was very concrete and took quite some time to answer simple questions. He claims that he does know why he is in the hospital. He kept on referring to his guardian or his mother as to what his symptoms are and about what occurred. She appears to be responding to internal stimuli. She has very poor insight and judgment and believes that he does not need medications. Poor hygiene and grooming. Has not been following up or taking medications. He is denying any auditory hallucinations. He denies any visual hallucinations. Patient denies any flight of ideas racing thoughts and increased in goal directed behavior. Currently he is denying any suicidal thoughts or any homicidal ideations. Patient admits to using cigarettes daily however denies any other recreational drug use.]" Hospital course: Upon admission to the unit patient was admitted initially on a petition and certificate. Patient did not differ with his commercial litigation attorney and his court date is set for 03/04. Patient was started on paliperidone by mouth and also Zoloft. Patient has been taking his medications and not reporting any side effects. Patient will need to be transition onto long-acting injection. Patient tested positive for covid 19 and became symptomatice including malaise, cough and fever and transferred to the medical floors. Mental status exam: please refer to prog note from 03/02 Impression: Schizoaffective disorder depressive type Homelessness [Nicotine dependence] Plan: -Patient was transferred to the medical floors after testing positive for covid 19. continue with current medications. Patient Condition at Discharge: Poor Plan - Discharge Summary Discharge Rx Participant: No New Discharge Prescriptions: No Action No Known Home Medications Discharge Medication List No Known Home Medications 02/24/22 [History] Follow up Appointment(s)/Referral(s): None,Stated [Primary Care Provider] - 1-2 days Activity/Diet/Wound Care/Special Instructions: Avoid the use of street drugs and alcohol. Take all prescriptions as prescribed. When you are in need of refills on your medications, please contact your medical provider and/or outpatient psychiatrist to have this done. Please go to scheduled outpatient appointment for aftercare treatment. If symptoms return or become worse, call the crisis line at and/or go to the nearest emergency room for evaluation. Discharge Disposition: ADMITTED IP TO THIS HOSP
== END 2022-03-03 02:41 | disposition short-term general hospital (02) | DRG 885 ==
LOC: EC 14:31 → 3MHU 22:12
PROVIDERS: ADMIT Psychiatry & Neurology Psychiatry; ATTEND Psychiatry & Neurology Psychiatry
PROC: 8E0ZXY6 Isolation (ICD-10-PCS; principal; 2022-03-02)
DX: F25.1 Schizoaffective disorder, depressive type (principal); U07.1 COVID-19; R45.851 Suicidal ideations; F15.11 Other stimulant abuse, in remission; F14.11 Cocaine abuse, in remission; F12.11 Cannabis abuse, in remission; Z28.310 Unvaccinated for COVID-19; F17.210 Nicotine dependence, cigarettes, uncomplicated; Z71.6 Tobacco abuse counseling; Z78.9 Other specified health status; Z59.00 Homelessness unspecified; Z86.14 Personal history of Methicillin resistant Staphylococcus aureus infection
CPT/HCPCS: 80053; 80061; 80306; 81001; 81003; 82075; 84443; 85025; 87635; 99285

== ENCOUNTER 2022-03-03 12:23 | Inpatient (IN) | payer MEDICAID ==
[2022-03-03] MEDS ORDERED: LORazepam 1 MG TAB PO PRN (13:04)
[2022-03-03] MEDS ORDERED: HALOPERIDOL LACTATE 5 MG/ML 1 ML VIAL IM PRN (13:04)
[2022-03-03] MEDS ORDERED: MAG HYDROX/AL HYDROX/SIMETH 30 ML CUP PO PRN (13:04)
[2022-03-03] MEDS ORDERED: ACETAMINOPHEN TAB 325 MG TAB PO PRN (13:04)
[2022-03-03] MEDS ORDERED: MAGNESIUM HYDROXIDE 2,400 MG/10 ML CUP PO PRN (13:04)
[2022-03-03] MEDS ORDERED: LORazepam 2 MG/ML INJ IM PRN (13:06)
[2022-03-03] MEDS ORDERED: haloperidoL 5 MG TAB PO PRN (13:06)
[2022-03-04] MEDS: NICOTINE 14MG/24HR PATCH TRANSDERM SCH (09:19)
[2022-03-04] MEDS: PALIPERIDONE 3 MG TAB.ER.24 PO SCH ×2 (11:01→20:23)
--- NOTE | 2022-03-04 11:16 | P.HP ---
Psychiatric H&P - . H&P Date: 03/04/22 History & Physical: Allergies Allergy/AdvReac Type Severity Reaction Status Date / Time No Known Allergies Allergy Verified 03/03/22 15:38 Vital Signs Temp 97.9 F 03/04/22 06:53 Pulse 79 03/04/22 06:53 Resp 16 03/04/22 06:53 BP 110/59 03/04/22 06:53 Pulse Ox 98 03/04/22 06:53 FiO2 Intake & Output 03/03/22 03/04/22 03/04/22 18:59 06:59 18:59 Weight 78.2 kg 03/04/22 10:08 IDENTIFYING DATA: Patient is a 36-year-old -Austrian male who is currently homeless has a public guardian and a history of schizoaffective disorder. HPI: as per H and P completed on 02/24 by automobile and property underwriter "Patient presented to the hospital for complaints of depression and suicidal thoughts. Patient was also noted to be responding to internal stimuli and evaluation. Patient was brought in by the police for mental health evaluation. Patient's guardian petitioned patient and stated that patient is "unable to make eye contact, parroting conversation, demonstrating behavior consistent with tics, increased paranoia, appears to be distracted by internal stimuli". Patient was also reported the having strange behavior according to condition and needs reminders to eat complete hygiene and reporting increase paranoia. Patient has a chronic history of schizoaffective disorder previously on a court order however this . He was also previously on a long-acting injection. Patient apparently has not been following up with [facility] for medications or mental health follow-up. Patient's case was recently closed by [facility]. Patient's urine drug screen was negative. He was admitted involuntarily to the mental health unit. Patient was seen wandering the hallways and approach by automobile and property underwriter. He appeared to be paranoid and suspicious of automobile and property underwriter. He also was somewhat intimidating to automobile and property underwriter. He was agreeable to speak in his room. He was very concrete and took quite some time to answer simple questions. He claims that he does know why he is in the hospital. He kept on referring to his guardian or his mother as to what his symptoms are and about what occurred. She appears to be responding to internal stimuli. She has very poor insight and judgment and believes that he does not need medications. Poor hygiene and grooming. Has not been following up or taking medications. He is denying any auditory hallucinations. He denies any visual hallucinations. Patient denies any flight of ideas racing thoughts and increased in goal directed behavior." Patient was treated on the [facility] until 03/03 and was on invega and zoloft. Patient ended up testing positive for covid 19 and was transferred briefly to the medical floors to contain the outbreak. Patient was treated for one day on the med floors then transferred back to MHU last night. He wasseen this morning and was coughing, he states that he did have some fevers earlier and last night. He states that he is doing "alright" and denies any complaints. He claims that he feels the medications are helping. He continues to be concrete, and have poverty of content. continues to display limited/poor insight and judgment. He is denying any depression or anxiety. Currently he is denying any suicidal thoughts or any homicidal ideations. Patient admits to using cigarettes daily however denies any other recreational drug use. PAST PSYCHIATRIC HISTORY: Patient states that she is a history of schizoaffective disorder. Patient was previously on Invega Sustenna however it is unknown the last injection dose that he is received from [facility]. Patient's case is currently close with [facility]. Patient was last psychiatrically hospitalized on the mental health unit in December 2020. He states that he is to go to [facility] however has not followed up. Patient denies any history of suicide attempts in the past. PMH:denies ALLERGIES: as per EMR CHEMICAL DEPENDENCY HISTORY: as per HPI FAMILY PSYCHIATRIC/SUBSTANCE USE HISTORY: denies SOCIAL HISTORY: Patient was born and raised in [place]. He states that he completed up to 11th grade. He claims that he dropped out of high school afterwards. He states that he did not work after high school and is currently collecting Social Security. He has a public guardian. He denies having any kids and is unmarried. He states that he is currently homeless. He claims that he has been jailed in the past however cannot remember what charges he's had. MENTAL STATUS EXAM: General Appearance: Patient appears to be well-built, stated age is alert, several tattoos, directable, and attempts to cooperate. Patient appears to have improving hygiene and grooming. Behavior: Patient is seated without any agitated behavior. Constricted. cooperative. Speech: Patient's speech is fluent and nonpressured. [place]. Monotone. Mood/Affect: Patient reports their mood is depressed, affect is congruent and constricted. Suicidality/Homicidality: Patient denies having any homicidal ideation intent or plan. Denies any suicidal ideations intent or plan Perceptions: Patient denies any visual hallucinations or auditory hallucin ations. Though content/process: [place], poverty of content. Not endorsing delusions. Memory and concentration: AOX3, grossly intact for the purposes of this session. Cannot spell "WORLD" backwards Judgment and insight: Chronically poor STRENGTHS/WEAKNESSES: strength is that patient is resilient. Weakness is that patient has poor judgment and has chronic mental illness, homelessness INTELLECT: average IMPRESSIONS: Schizoaffective disorder, depressive type Homelessness Nicotine dependence PLAN: -Patient is admitted under involuntary status to MHU for stabilization of psychiatric symptoms and safety. Patient did not defer and will have his full court hearing today. -Medications : Will start patient on Zoloft 50 mg daily at bedtime for depression/anxiety, continue with 6 mg paliperidone BID for psychosis and plan will be to transition onto long-acting injection. -Ativan and Haldol PRN for agitation/aggression -Patient was informed of the risks, benefits and side effects of the medication and patient verbally consented to taking the medications. Patient did not sign med consent form and was placed in chart. -Internal Medicine consult to perform medical evaluation and physical. -NRT - nicotine patch -SW on board for discharge planning. Encourage patient to participate in groups to work on coping skills. awaiting court today. 03/04/22 11:10
[2022-03-04] MEDS: BENZOCAINE/MENTHOL LOZENG 1 EACH LOZENGE MUCOUS MEM PRN ×2 (18:31→22:22)
--- NOTE | 2022-03-04 18:32 | P.HPMEDMHU ---
History of Present Illness H&P Date: 03/04/22 Patient is a 36-year-old -Malian male who is currently homeless and has a history of schizoaffective disorder who is admitted to the psych unit for depression and suicidal thoughts. Patient is admitted to the COVID side of the psych unit. Patient states that he does have a mild cough and he has some shortness of breath with exertion. Review of Systems 10 ROS reviewed and are negative except as noted in HPI Past Medical History Past Medical History: No Reported History Additional Past Medical History / Comment(s): Possible history of hypertension and used to be on Coreg. History of Any Multi-Drug Resistant Organisms: MRSA Date of last positivie culture/infection: 2018 MDRO Source:: right second finger. Past Surgical History: No Surgical Hx Reported Smoking Status: Current every day smoker - Past Family History Father Family Medical History: No Reported History Additional Family Medical History / Comment(s): patient reports that family has no medical conditions that he's aware of Mother Family Medical History: No Reported History Additional Family Medical History / Comment(s): Patient refused to answer questions regarding family history Medications and Allergies Home Medications Medication Instructions Recorded Confirmed Type No Known Home Medications 02/24/22 03/03/22 History Allergies Allergy/AdvReac Type Severity Reaction Status Date / Time No Known Allergies Allergy Verified 03/03/22 15:38 Physical Exam Osteopathic Statement: *. No significant issues noted on an osteopathic structural exam other than those noted in the History and Physical/Consult. Vitals: Vital Signs Temp Pulse Resp BP Pulse Ox 03/04/22 06:53 97.9 F 79 16 110/59 98 General: [Alert and oriented, well nourished, no acute distress]. Eye: [PERRL, EOMI, normal conjunctiva]. HENT: [Normocephalic, clear tympanic membranes, normal hearing, moist oral mucosa, no scleral icterus, no sinus tenderness]. Neck: [Supple, non-tender, no carotid bruits, no JVD, no lymphadenopathy]. Lungs: [Clear to auscultation and percussion, non-labored respiration]. Heart: [Normal rate, regular rhythm, no murmur, gallop or edema]. Abdomen: [Soft, non-tender, non-distended, normal bowel sounds, no masses]. Musculoskeletal: [Normal range of motion and strength, no tenderness or swelling]. Skin: [Skin is warm, dry and pink, no rashes or lesions]. Neurologic: [Awake, alert, and oriented X3, CN II-XII intact]. Psychiatric: [Cooperative, appropriate mood and affect]. Cranial Nerve Examination - Cranial Nerves Cranial Nerve II- Optic: Intact Cranial Nerve III- Oculomotor: Intact Cranial Nerve IV- Trochlear: Intact Cranial Nerve V- Trigeminal: Intact Cranial Nerve - Abducens: Intact Cranial Nerve VII- Facial: Intact Cranial Nerve VIII- Auditory: Intact Cranial Nerve IX- Glossopharyngeal: Intact Cranial Nerve X- Vagus: Intact Cranial Nerve XI- Accessory: Intact Cranial Nerve XII- Hypoglossal: Intact Assessment and Plan Assessment: Schizoaffective disorder depression type -Your psychiatry management COVID-19 asymptomatic -No need for treatment -Please continue to monitor routine vital signs as per your inpatient psychiatric protocol -Please contact us if there is any change in patient's respiratory status
[2022-03-04] MEDS ORDERED: PALIPERIDONE IM 234 MG/1.5 ML SYG IM ONE ×2 (19:00→23:59)
[2022-03-04] MEDS: SERTRALINE 50 MG TAB PO SCH (20:23)
[2022-03-05] MEDS: BENZOCAINE/MENTHOL LOZENG 1 EACH LOZENGE MUCOUS MEM PRN ×3 (05:30→22:29)
[2022-03-05] MEDS: PALIPERIDONE 3 MG TAB.ER.24 PO SCH ×2 (08:40→20:23)
[2022-03-05] MEDS: NICOTINE 14MG/24HR PATCH TRANSDERM SCH (08:41)
--- NOTE | 2022-03-05 12:21 | P.PN ---
Progress Note - Text Progress Note Date: 03/05/22 Interval History: Patient was seen lying in his bed this morning and was directable and agreeable to speak with narrative writer. Patient is in isolation today once again and states that his covid sx have been improving. He states he is coughing less today. He claims that his mood is "alright". He is denying any anxiety today. He continues to be concrete and ask a lot of questions about his discharge and also his medications which were answered by narrative writer. He states that he would not be allowed back at his mother's house however is agreeable to go to [facility]. We spoke about the long-acting injection and the patient will receive a second dose on Wednesday. He is fairly concrete and continues to have fairly superficial/poor insight. He has been taking his medications as prescribed. He is not reporting any side effects this time. He claims that he slept fairly last night. Denying any depression today. At this time patient denies any suicidal or homical ideations, intent or plan. Patient denies any auditory, visual hallucinations. Patient denies any side effects from the medications and has been compliant with meds. Mental Status Exam: General Appearance: Patient appears to be well-built, stated age is alert, several tattoos, directable, and attempts to cooperate. Patient appears to have improving hygiene and grooming. Behavior: Patient is seated without any agitated behavior. Constricted. [place] improving. not Responding to internal stimuli today Speech: Patient's speech is fluent and nonpressured. [place]. Monotone. Mood/Affect: Patient reports their mood is "its alright", affect is congruent and constricted. Suicidality/Homicidality: Patient denies having any homicidal ideation intent or plan. Denies any suicidal ideations intent or plan Perceptions: Patient denies any visual hallucinations or auditory hallucinations. Though content/process: [place], poverty of content. Not endorsing delusions Memory and concentration: AOX3, grossly intact for the purposes of this session. Judgment and insight: Chronically poor IMPRESSIONS: Schizoaffective disorder, depressive type Homelessness Nicotine dependence Plan: -Patient continues to meet criteria for inpatient psychiatric admission for symptom stabilization and safety. Patient has not signed adult voluntary form and medication consent and was placed in patient's chart. -Medications: continue Zoloft 50 mg daily at bedtime for depression/anxiety. decrease paliperidone to 3 mg qhs + 6 mg daily for psychosis. Patient received Invega Sustenna 234 mg IM on 03/04 and will be due for next dose of 156 mg IM on wednesday morning. -When necessary Ativan and Haldol for agitation/aggression. -NRT - nicotine patch -SW on board for discharge planning. Encouraged the patient to participate in milieu. Patient did not defer with his regulatory attorney and will await court hearing scheudmari for wednesday. Likely discharge after patient is transitioned onto [facility]. patient will either be discharged to live with his mother or to a [facility].
[2022-03-05] MEDS: SERTRALINE 50 MG TAB PO SCH (20:22)
[2022-03-06] MEDS: BENZOCAINE/MENTHOL LOZENG 1 EACH LOZENGE MUCOUS MEM PRN ×3 (06:35→20:41)
[2022-03-06 07:20] VITALS: RESP 16
[2022-03-06] MEDS ORDERED: PALIPERIDONE 6 MG TAB.ER.24 PO SCH (09:00)
[2022-03-06] MEDS: NICOTINE 14MG/24HR PATCH TRANSDERM SCH (09:44)
--- NOTE | 2022-03-06 11:25 | P.PN ---
Progress Note - Text Progress Note Date: 03/06/22 Interval History: Patient was seen sitting on his bed this morning and was directable and agreea ble to speak with health underwriter. Patient remains in isolation today due to his covid results and reports that his sx have been improving. He states he is coughing less today once again. When asked about his mood he states that "it's alright" and denies any anxiety today. He continues to be fairly concrete in his answers and continues to be fairly focused on discharge planning. He claims that he is okay with taking the long-acting injection on Wednesday morning. We spoke about getting retested for covid then to help with placement which she is agreeable to. He also was asking what other options he has for discharge. He claims that he is eating fairly and sleeping well at night time. Appears to be improving with regards to paranoia. He has been taking his medications as prescribed. He is not reporting any side effects this time. At this time patient denies any suicidal or homical ideations, intent or plan. Patient denies any auditory, visual hallucinations. Patient denies any side effects from the medications and has been compliant with meds. Mental Status Exam: General Appearance: Patient appears to be well-built, stated age is alert, several tattoos, directable, and attempts to cooperate. Patient appears to have improving hygiene and grooming. Behavior: Patient is seated without any agitated behavior. Constricted. [place] improving. not Responding to internal stimuli Speech: Patient's speech is fluent and nonpressured. [place]. Monotone. Mood/Affect: Patient reports their mood is "its alright", affect is congruent and constricted. Suicidality/Homicidality: Patient denies having any homicidal ideation intent or plan. Denies any suicidal ideations intent or plan Perceptions: Patient denies any visual hallucinations or auditory hallucinations. Though content/process: [place], poverty of content. Not endorsing delusions Memory and concentration: AOX3, grossly intact for the purposes of this session. Judgment and insight: Chronically poor IMPRESSIONS: Schizoaffective disorder, depressive type Homelessness Nicotine dependence Plan: -Patient continues to meet criteria for inpatient psychiatric admission for symptom stabilization and safety. Patient has not signed adult voluntary form and medication consent and was placed in patient's chart. -Medications: continue Zoloft 50 mg daily at bedtime for depression/anxiety. decrease paliperidone to 3 mg qhs + 3 mg daily for psychosis and then decrease to 3 mg qhs for wednesday. Patient received Invega Sustenna 234 mg IM on 03/04 and will be due for next dose of 156 mg IM on wednesday morning. -When necessary Ativan and Haldol for agitation/aggression. -NRT - nicotine patch -SW on board for discharge planning. Encouraged the patient to participate in milieu. Patient received court order on wedmarch 04. patient will be dishcarged after he receives his second REED dose. patient will either be discharged to live with his mother or to a [facility] and SW to follow up with roberto today to find out what other plans she has for discharge options.
[2022-03-06] MEDS: PALIPERIDONE 3 MG TAB.ER.24 PO SCH (20:25)
[2022-03-06] MEDS: SERTRALINE 50 MG TAB PO SCH (20:25)
[2022-03-07] MEDS ORDERED: PALIPERIDONE 3 MG TAB.ER.24 PO ONE (09:00)
[2022-03-07] MEDS: NICOTINE 14MG/24HR PATCH TRANSDERM SCH (09:08)
[2022-03-07] MEDS: BENZOCAINE/MENTHOL LOZENG 1 EACH LOZENGE MUCOUS MEM PRN ×3 (12:58→21:51)
--- NOTE | 2022-03-07 16:47 | P.PN ---
Progress Note - Text Progress Note Date: 03/07/22 Interval History: Patient was seen in room this today and was directable and agreeable to speak w ith story writer. Patient remains in isolation today due to his covid results. When asked about his mood he states that "it's alright" and denies any concerns today. He continues to be concrete in his answers and continues to be fairly focused on discharge. He asks about discharge and where he will be going after discharge. He reports "alright" mood, sleep and appetite. No overt features of psychosis or scott on assessment. He has been taking his medications and denies side effects. At this time patient denies any suicidal or homicidal ideations, intent or plan. Patient denies any auditory, visual hallucinations. Mental Status Exam: General Appearance: Patient appears to be well-built, stated age, several tattoos, dressed in bright colorful shorts. Behavior: Patient is standing without any agitated behavior. He is calm and attempts to cooperate. Speech: Patient's speech is fluent and non-pressured. [place]. Mood/Affect: Patient reports his mood is "alright", affect is congruent and constricted. Suicidality/Homicidality: Patient denies having any homicidal ideation intent or plan. Denies any suicidal ideation intent or plan Perceptions: Patient denies any visual hallucinations or auditory hallucinations. Though content/process: [place], poverty of content. Not endorsing delusions. Memory and concentration: AOX3, grossly intact for the purposes of this session. Judgment and insight: Chronically poor IMPRESSIONS: Schizoaffective disorder, depressive type Homelessness Nicotine dependence Plan: -Patient continues to meet criteria for inpatient psychiatric admission for sym ptom stabilization and safety. Patient has not signed adult voluntary form and medication consent and was placed in patient's chart. -Medications: Continue Zoloft 50 mg daily at bedtime for depression/anxiety. Continue paliperidone to 3 mg qhs + 3 mg daily for psychosis and then decrease to 3 mg qhs for Wednesday. Patient received Invega Sustenna 234 mg IM on 03/04/22 and will be due for next dose of 156 mg IM on Wednesday morning. -When necessary Ativan and Haldol for agitation/aggression. -NRT - nicotine patch -SW on board for discharge planning. Encouraged the patient to participate in milieu. Patient received court order on March 04, 2022. Patient will be discharged after he receives his second REED dose.
[2022-03-07] MEDS: PALIPERIDONE 3 MG TAB.ER.24 PO SCH (20:44)
[2022-03-07] MEDS: SERTRALINE 50 MG TAB PO SCH (20:46)
[2022-03-08 07:04] VITALS: BP 115/65; PULSE 72; TEMP 97.3
[2022-03-08] MEDS: NICOTINE 14MG/24HR PATCH TRANSDERM SCH (08:14)
[2022-03-08] MEDS: BENZOCAINE/MENTHOL LOZENG 1 EACH LOZENGE MUCOUS MEM PRN ×3 (12:46→22:07)
--- NOTE | 2022-03-08 19:04 | P.PN ---
Progress Note - Text Progress Note Date: 03/08/22 Interval History: Patient was seen in room this today and was directable and agreeable to speak w ith junior copywriter. Patient remains in isolation today due to his COVID results. He denies shortness of breath, chest pain, cough. When asked about his mood he states that "myself alright" and denies any concerns again today. He continues to be concrete in his answers and continues to be fairly focused on discharge. No overt features of psychosis or scott on assessment. He has been taking his medications and denies side effects. At this time patient denies any suicidal or homicidal ideations, intent or plan. Patient denies any auditory, visual hallucinations. Mental Status Exam: General Appearance: Patient appears to be well-built, stated age, several tattoos, dressed in bright colorful shorts. Behavior: Patient is standing without any agitated behavior. He is calm and attempts to cooperate. Speech: Patient's speech is fluent and non-pressured. Monotone. Mood/Affect: Patient reports his mood is "myself alright", affect is congruent and constricted. Suicidality/Homicidality: Patient denies having any homicidal ideation intent or plan. Denies any suicidal ideation intent or plan Perceptions: Patient denies any visual hallucinations or auditory hallucinations. Though content/process: [place], poverty of content. Not endorsing delusions. Memory and concentration: AOX3, grossly intact for the purposes of this session. Judgment and insight: Chronically poor IMPRESSIONS: Schizoaffective disorder, depressive type Homelessness Nicotine dependence Plan: -Patient continues to meet criteria for inpatient psychiatric admission for symptom stabilization and safety. Patient received court order on March 04, 2022. -Medications: Continue Zoloft 50 mg daily at bedtime for depression/anxiety. Decrease oral Invega to 3 mg QHS starting tonight for psychosis. Patient received Invega Sustenna 234 mg IM on 03/04/22 and will be due for next dose of 156 mg IM on Wednesday morning. -When necessary Ativan and Haldol for agitation/aggression. -NRT - nicotine patch -Plan to discharge in 1-2 days after he received booster dose of REED on Wednesday.
[2022-03-08] MEDS: SERTRALINE 50 MG TAB PO SCH (20:21)
[2022-03-08] MEDS: PALIPERIDONE 3 MG TAB.ER.24 PO SCH (20:21)
[2022-03-09] MEDS: BENZOCAINE/MENTHOL LOZENG 1 EACH LOZENGE MUCOUS MEM PRN ×3 (07:04→20:26)
[2022-03-09] MEDS: NICOTINE 14MG/24HR PATCH TRANSDERM SCH ×2 (08:26→08:33)
[2022-03-09] MEDS ORDERED: PALIPERIDONE IM 156 MG/ML SYG IM ONE (09:00)
--- NOTE | 2022-03-09 14:27 | P.PN ---
Progress Note - Text Progress Note Date: 03/09/22 Interval History: Patient was seen sitting on his bed this morning and was directable and agreea ble to speak with poem writer. Patient continues to remain in isolation. Patient claims she is doing "okay" and states that his weekend was "alright". He states that she is improving in terms of his mood and anxiety. He continues to be fairly focused on discharge. He states that he receive the Invega Sustenna injection this morning. Claims that he tolerated it fairly well. He claims that he has been sleeping well at nighttime. Denies any problems with appetite. Continues to be fairly concrete. denies any anxiety today. Appears to be improving with regards to paranoia. He has been taking his medications as prescribed. He is not reporting any side effects this time. At this time patient denies any suicidal or homical ideations, intent or plan. Patient denies any auditory, visual hallucinations. Patient denies any side effects from the medications and has been compliant with meds. Mental Status Exam: General Appearance: Patient appears to be well-built, stated age is alert, several tattoos, directable, and attempts to cooperate. Patient appears to have improving hygiene and grooming. Behavior: Patient is seated without any agitated behavior. Constricted. [place] improving. not Responding to internal stimuli Speech: Patient's speech is fluent and nonpressured. [place]. Monotone. Mood/Affect: Patient reports their mood is "alright", affect is congruent and constricted. Suicidality/Homicidality: Patient denies having any homicidal ideation intent or plan. Denies any suicidal ideations intent or plan Perceptions: Patient denies any visual hallucinations or auditory hallucinations. Though content/process: [place], poverty of content. Not endorsing delusions Memory and concentration: AOX3, grossly intact for the purposes of this session Judgment and insight: Chronically poor, improving mildly IMPRESSIONS: Schizoaffective disorder, depressive type Homelessness Nicotine dependence Plan: -Patient continues to meet criteria for inpatient psychiatric admission for symptom stabilization and safety. Patient has not signed adult voluntary form and medication consent and was placed in patient's chart. -Medications: continue Zoloft 50 mg daily at bedtime for depression/anxiety. d/c paliperidone PO. Patient received Invega Sustenna 234 mg IM on 03/04 and will be due for next dose of 156 mg IM today on 03/09, david be due for his next dose of 234 mg IM on 03/30 -When necessary Ativan and Haldol for agitation/aggression. -NRT - nicotine patch -SW on board for discharge planning. Encouraged the patient to participate in milieu. Patient received court order on wedmarch 04. patient received his second REED dose. patient will either be discharged to live with his mother or to a nursing home and to follow up with roberto today. at this time there are no nursing home beds available. [facility] will do an intake on the unit with him.
[2022-03-09] MEDS: SERTRALINE 50 MG TAB PO SCH (20:26)
[2022-03-10] MEDS: NICOTINE 14MG/24HR PATCH TRANSDERM SCH (08:14)
--- NOTE | 2022-03-10 09:51 | P.DS ---
Providers Date of admission: 03/03/22 14:41 Expected date of discharge: 03/10/22 Attending physician: Montana Saleh MD Consults: 03/03/22 13:04 Consult Physician Routine Consulting Provider: Arun Physician Consult Reason/Comments: H&P and medical Do you want consulting provider notified?: Yes Primary care physician: Stated None - Discharge Diagnosis(es) (1) Schizoaffective disorder, depressive type Current Visit: Yes Status: Acute Priority: High (2) Homelessness Current Visit: Yes Status: Acute Priority: Medium (3) Nicotine dependence Current Visit: Yes Status: Acute Priority: Low Hospital Course: Admission HPI: Admission note was completed by typewriter repairer "Patient is a 36-year-old - [place] male who is currently homeless has a public guardian and a history of schizoaffective disorder. as per H and P completed on 02/24 by typewriter repairer "Patient presented to the hospital for complaints of depression and suicidal thoughts. Patient was also noted to be responding to internal stimuli and evaluation. Patient was brought in by the police for mental health evaluation. Patient's guardian petitioned patient and stated that patient is "unable to make eye contact, parroting conversation, demonstrating behavior consistent with tics, increased paranoia, appears to be distracted by internal stimuli". Patient was also reported the having strange behavior according to condition and needs reminders to eat complete hygiene and reporting increase paranoia. Patient has a chronic history of schizoaffective disorder previously on a court order however this . He was also previously on a long-acting injection. Patient apparently has not been following up with [facility] for medications or mental health follow-up. Patient's case was recently closed by [facility]. Patient's urine drug screen was negative. He was admitted involuntarily to the mental health unit. Patient was seen wandering the hallways and approach by typewriter repairer. He appeared to be paranoid and suspicious of typewriter repairer. He also was somewhat intimidating to typewriter repairer. He was agreeable to speak in his room. He was very concrete and took quite some time to answer simple questions. He claims that he does know why he is in the hospital. He kept on referring to his guardian or his mother as to what his symptoms are and about what occurred. She appears to be responding to internal stimuli. She has very poor insight and judgment and believes that he does not need medications. Poor hygiene and grooming. Has not been following up or taking medications. He is denying any auditory hallucinations. He denies any visual hallucinations. Patient denies any flight of ideas racing thoughts and increased in goal directed behavior." Patient was treated on the [facility]HU until 03/03 and was on invega and zoloft. Patient ended up testing positive for covid 19 and was transferred briefly to the medical floors to contain the outbreak. Patient was treated for one day on the [facility] floors then transferred back to [facility] last night. He wasseen this morning and was coughing, he states that he did have some fevers earlier and last night. He states that he is doing "alright" and denies any complaints. He claims that he feels the medications are helping. He continues to be concrete, and have poverty of content. continues to display limited/poor insight and judgment. He is denying any depression or anxiety. Currently he is denying any suicidal thoughts or any homicidal ideations. Patient admits to using cigarettes daily however denies any other recreational drug use." Hospital course: Upon admission to the unit patient was admitted involuntarily on a petition and certificate and a second certificate was completed and faxed with the courts. Patient ended up not signing a deferral and going through the court process and had a court hearing. Patient ended up on a court order for mental treatment. Patient got along well with other patients on the unit and followed unit protocol. Patient was compliant with the medications and denied any side effects throughout hospital course. Patient was started on Zoloft 50 mg daily for mood/anxiety, paliperidone by mouth however patient was then transitioned onto Invega Sustenna 234 mg IM given on 03/04 and second dose of 156 mg IM was given on 03/09 and his next monthly dose will be due on 03/30 of 234 mg IM.. Patient spoke of his stressors and engaged in therapy both group and individual. Patient was also seen by medical team for history and physical exam. Patient did test positive for covid-19 during his hospitalization and was transferred off the unit to medical for 1-2 days then transferred back and remained in quarantine. Throughout the course of the hospitalization patient gradually improved with regards to mood, anxiety, psychosis/delusions/paranoia, sleep and returned back to their baseline level of functioning. On the day of discharge patient denied any suicidal or homicidal ideations intent or plan denied any auditory or visual hallucinations. Patient endorsed wanting to live for his life and his family. The patient denied any access to guns or weapons. Patient denied any paranoia and did not endorse any delusions. Patient does not have a significant history of substance abuse and was counseled on abstaining from all substances including alcohol and marijuana. Patient was also counseled on the medications and need for regular compliance and was encouraged to follow-up with their outpatient appointment for mental health and also for primary care. Prior to discharge a family meeting will be arranged by social media marketer to answer any questions and ensure safety upon discharge. Due to testing positive for covid, patient was not able to be directly transitioned into a senior care and will be staying at his mothers house until [facility] is able to get him a senior care bed. Mental status exam: General Appearance: Patient appears to be stated age is alert, directable, and cooperative. Patient is in no acute distress and has improved hygiene and grooming Behavior: Patient is calmly seated without any agitated behavior. Speech: Patient's speech is fluent and nonpressured. [place]. Mood/Affect: Patient reports their mood is "alright", affect is congruent and constricted Suicidality/Homicidality: Patient denies having any suicidal or homicidal ideation intent or plan. Perceptions: Patient denies any auditory or visual hallucinations. Though content/process: There is no evidence of any delusional thought content and thought process is linear and goal-directed. [place]. Memory and concentration: AOX3, grossly intact for the purposes of this session. Can spell "WORLD" backwards correctly. Judgment and insight: chronically poor, however has improved with guarded prognosis Impression: Schizoaffective disorder, depressive type Homelessness Nicotine dependence Plan: -Continue with discharge today as patient has improved and stabilized psychiatrically and is not currently an imminent threat to himself and/or others. Patient will remain at chronically elevated risk for harm to self and/or others due to his chronically poor insight and mental illness. -Continue medications: Zoloft 50 mg daily at bedtime for depression/anxiety, by mouth paliperidone was discontinued. Patient received Invega Sustenna 234 mg IM on 03/04 and also received a second dose of 156 mg IM on 03/09. Patient will be due for his monthly dose of 234 mg IM on 03/30. -Patient was counseled on the need for medication compliance and appropriate follow-up at mental health and also primary care for medical issues. Patient verbalized understanding and agreed. -Social work to arrange for and conduct family meeting to ensure safety upon d ischarge and answer any questions/concerns. Social work also to arrange for patients follow up appointments with [facility] for psychiatric care along with follow up with primary care provider. -Patient counseled on abstaining from recreational drugs and marijuana and alcohol. Was informed/educated on the adverse effects on their physical and mental health. Patient verbally agreed and understood. -Patient was instructed to return to the hospital or seek immediate medical care if their psychiatric or medical symptoms do worsen or reoccur. Allergies Allergy/AdvReac Type Severity Reaction Status Date / Time No Known Allergies Allergy Verified 03/03/22 15:38 Vital Signs Temp 97.3 F L 03/08/22 06:50 Pulse 72 03/08/22 06:50 Resp 16 03/08/22 21:21 BP 115/65 03/08/22 06:50 Pulse Ox 98 03/08/22 06:50 FiO2 Patient Condition at Discharge: Stable Plan - Discharge Summary Discharge Rx Participant: No New Discharge Prescriptions: New Sertraline [Zoloft] 50 mg PO HS 30 Days tab Benzocaine/Menthol Lozeng [Cepacol lozenge] 1 each MUCOUS MEM Q4HR PRN 14 Days lozenge PRN Reason: Cold Symptoms Nicotine 14Mg/24Hr Patch [Habitrol] 1 patch TRANSDERM DAILY 14 Days patch Paliperidone IM [Invega Sustenna] 234 mg IM QMONTHLY #1 each Discharge Medication List Benzocaine/Menthol Lozeng [Cepacol lozenge] 1 each MUCOUS MEM Q4HR PRN 14 Days lozenge 03/10/22 [Rx] Nicotine 14Mg/24Hr Patch [Habitrol] 1 patch TRANSDERM DAILY 14 Days patch 03/10/22 [Rx] Paliperidone IM [Invega Sustenna] 234 mg IM QMONTHLY #1 each 03/10/22 [Rx] Sertraline [Zoloft] 50 mg PO HS 30 Days tab 03/10/22 [Rx] Activity/Diet/Wound Care/Special Instructions: Avoid the use of street drugs and alcohol. Take all prescriptions as prescribed. When you are in need of refills on your medications, please contact your medical provider and/or outpatient psychiatrist to have this done. Please go to scheduled outpatient appointment for aftercare treatment. If symptoms return or become worse, call the crisis line at and/or go to the nearest emergency room for evaluation. Discharge Disposition: OTHER INSTITUTION NOT DEFINED
== END 2022-03-10 15:09 | disposition home or self-care (01) | DRG 885 ==
LOC: 3MHU 14:41
PROVIDERS: ADMIT Psychiatry & Neurology Psychiatry; ATTEND Psychiatry & Neurology Psychiatry
PROC: 8E0ZXY6 Isolation (ICD-10-PCS; principal; 2022-03-03)
DX: F25.1 Schizoaffective disorder, depressive type (principal); U07.1 COVID-19; R45.851 Suicidal ideations; F17.210 Nicotine dependence, cigarettes, uncomplicated; F41.9 Anxiety disorder, unspecified; Z59.00 Homelessness unspecified; Z79.899 Other long term (current) drug therapy; Z71.89 Other specified counseling

== ENCOUNTER 2023-01-29 20:26 | Emergency (ER) | payer OTHER ==
[2023-01-29 20:31] VITALS: BP 149/93; TEMP 96.1
--- NOTE | 2023-01-29 22:00 | ED ---
Psych HPI - General Chief Complaint: Psychiatric Symptoms Stated Complaint: Mental Health Time Seen by Provider: 01/29/23 21:17 Source: police, RN notes reviewed, old records reviewed Mode of arrival: ambulatory - History of Present Illness Initial Comments: This is a 29-year-old male to the Emergency Room for evaluation patient presents today under police supervision petition patient is under evaluation for a court ruling for psychiatric evaluation. To the emergency department today for evaluation of possible psychiatric placement, patient is been noncompliant with medications MD Complaint: altered mental status, other (not taking medication) -: hour(s) Associated Psychiatric Symptoms: depression, suicidal ideation History of same: Yes Quality: constant Improves With: none Associated Symptoms: denies other symptoms Treatments Prior to Arrival: none If Self Harm: admits thoughts of self harm - Related Data Home Medications Medication Instructions Recorded Confirmed Paliperidone IM [Invega Sustenna] 234 mg IM Q30D 01/29/23 01/29/23 Allergies Allergy/AdvReac Type Severity Reaction Status Date / Time No Known Allergies Allergy Verified 01/29/23 22:16 Review of Systems ROS Statement: Those systems with pertinent positive or pertinent negative responses have been documented in the HPI. ROS Other: All systems not noted in ROS Statement are negative. Past Medical History Past Medical History: No Reported History Additional Past Medical History / Comment(s): Possible history of hypertension and used to be on Coreg. History of Any Multi-Drug Resistant Organisms: MRSA Date of last positivie culture/infection: 2017 MDRO Source:: right second finger. Past Surgical History: No Surgical Hx Reported Past Psychological History: Schizophrenia Smoking Status: Current every day smoker Past Alcohol Use History: Occasional Past Drug Use History: None Reported, Cocaine, Heroin, Marijuana, Methamphetamine - Past Family History Father Family Medical History: No Reported History Additional Family Medical History / Comment(s): patient reports that family has no medical conditions that he's aware of Mother Family Medical History: No Reported History Additional Family Medical History / Comment(s): Patient refused to answer questions regarding family history General Exam Limitations: no limitations General appearance: alert, in no apparent distress Head exam: Present: atraumatic, normocephalic, normal inspection Eye exam: Present: normal appearance, PERRL, EOMI. Absent: scleral icterus, conjunctival injection, periorbital swelling ENT exam: Present: normal exam, mucous membranes moist Neck exam: Present: normal inspection. Absent: tenderness, meningismus, lymphadenopathy Respiratory exam: Present: normal lung sounds bilaterally. Absent: respiratory distress, wheezes, rales, rhonchi, stridor Cardiovascular Exam: Present: regular rate, normal rhythm, normal heart sounds. Absent: systolic murmur, diastolic murmur, rubs, gallop, clicks GI/Abdominal exam: Present: soft, normal bowel sounds. Absent: distended, tenderness, guarding, rebound, rigid Extremities exam: Present: normal inspection, full ROM, normal capillary refill. Absent: tenderness, pedal edema, joint swelling, calf tenderness Back exam: Present: normal inspection Neurological exam: Present: alert, oriented X3, CN II-XII intact Psychiatric exam: Present: normal affect, normal mood Skin exam: Present: warm, dry, intact, normal color. Absent: rash Course Vital Signs 01/29/23 01/29/23 20:28 23:03 Temperature 96.1 F L Pulse Rate 109 H 94 Respiratory 20 18 Rate Blood Pressure 149/93 O2 Sat by Pulse 96 99 Oximetry - Reevaluation(s) Reevaluation #1: 01/29/23 22:00 medical record is reviewed Reevaluation #2: 01/29/23 22:00 medically clear for psychiatric evaluaiton Medical Decision Making - Medical Decision Making 37 male to the emergency department for evaluation psychiatric illness, patient seen eval by psychiatry here in the ER and is okay for discharge home - Lab Data Result diagrams: 01/29/23 22:57 Lab Results 01/29/23 01/29/23 Range/Units 22:57 22:57 Sodium 133 L (137-145) mmol/L Potassium 4.2 (3.5-5.1) mmol/L Chloride 101 (98-107) mmol/L Carbon Dioxide 21 L (22-30) mmol/L Anion Gap 11 mmol/L BUN 10 (9-20) mg/dL Creatinine 0.82 (0.66-1.25) mg/dL Est GFR (CKD-EPI)AfAm >90 (>60 ml/min/1.73 sqM) Est GFR (CKD-EPI)NonAf >90 (>60 ml/min/1.73 sqM) Glucose 381 H (74-99) mg/dL Estimated Ave Glu mg/dL 298 mg/dL Hemoglobin A1c 12.0 H (<=6.0) % Calcium 9.4 (8.4-10.2) mg/dL Total Bilirubin 0.9 (0.2-1.3) mg/dL AST 24 (17-59) U/L ALT 22 (4-49) U/L Alkaline Phosphatase 104 (38-126) U/L Total Protein 7.4 (6.3-8.2) g/dL Albumin 4.5 (3.5-5.0) g/dL Triglycerides 652.00 H (0.00-149.00) mg/dL Cholesterol 238.00 H (0.00-200.00) mg/dL LDL Cholesterol Direct 131.00 H (0.00-129.00) mg/dL LDL Cholesterol, Calc 71.3 (0.0-131.0) mg/dL VLDL Cholesterol, Calc 130.40 H (5.00-40.00) mg/dL HDL Cholesterol 36.30 L (40.00-60.00) mg/dL Cholesterol/HDL Ratio 6.56 Ratio TSH 3.230 (0.465-4.680) mIU/L Disposition Clinical Impression: Acute anxiety, Acute psychosis, Schizoaffective disorder, depressive type, Homelessness, Depression Disposition: HOME SELF-CARE Condition: Fair Is patient prescribed a controlled substance at d/c from ED?: No Referrals: None,Stated [Primary Care Provider] - 1-2 days
[2023-01-29 23:04] VITALS: PULSE 94; RESP 18
[2023-01-29 23:32] LABS: ALT 22 U/L (4-49); AST 24 U/L (17-59); African American GFR (CKD) >90 (>60 ml/min/1.73 sqM); Albumin 4.5 g/dL (3.5-5.0); Alkaline Phosphatase 104 U/L (38-126); Anion Gap 11 mmol/L; Blood Urea Nitrogen 10 mg/dL (9-20); Calcium 9.4 mg/dL (8.4-10.2); Carbon Dioxide 21 mmol/L (22-30); Chloride 101 mmol/L (98-107); Glucose 381 mg/dL (74-99); Non-African American GFR(CKD) >90 (>60 ml/min/1.73 sqM); Potassium 4.2 mmol/L (3.5-5.1); Sodium 133 mmol/L (137-145); Total Bilirubin 0.9 mg/dL (0.2-1.3); Total Protein 7.4 g/dL (6.3-8.2)
[2023-01-30 10:22] LABS: Chol/HDL Ratio 6.56 Ratio; LDL Cholesterol,Calculated 71.3 mg/dL (0.0-131.0)
== END 2023-01-29 23:04 | disposition home or self-care (01) ==
LOC: EC 20:26
DX: F25.1 Schizoaffective disorder, depressive type (principal); F41.9 Anxiety disorder, unspecified; Z59.00 Homelessness unspecified; F17.200 Nicotine dependence, unspecified, uncomplicated; F12.90 Cannabis use, unspecified, uncomplicated
CPT/HCPCS: 36415; 80053; 80061; 83036; 83721; 84443; 99285

== ENCOUNTER 2024-08-10 12:28 | Inpatient (IN) | payer OTHER, MEDICAID ==
--- NOTE | 2024-08-10 15:41 | ED ---
General Adult HPI - General Chief complaint: Psychiatric Symptoms Stated complaint: Psych eval Time Seen by Provider: 08/10/24 12:55 Source: patient Mode of arrival: ambulatory Limitations: no limitations - History of Present Illness Initial comments: Dictation was produced using [employer] dictation software. please excuse any grammatical, word or spelling errors. Chief Complaint: 39-year-old male presents emergency department for visual and auditory hallucinations History of Present Illness: Patient is a 39-year-old male history of psychiatric illness and illicit drug use presents to the ER for symptoms of auditory and visual hallucinations. States that he is hearing voices. Denies any suicidal homicidal ideation. Patient complaining of insomnia. Concern of right ear and jaw pain. He is concerned he is having a ear infection. The ROS documented in this emergency department record has been reviewed and confirmed by me. Those systems with pertinent positive or negative responses have been documented in the HPI. All other systems are other negative and/or noncontributory. - Related Data Home Medications Medication Instructions Recorded Confirmed fluPHENAZine decanoate [Prolixin 25 mg IM [id number] 08/10/24 08/10/24 Decanoate] Allergies Allergy/AdvReac Type Severity Reaction Status Date / Time aripiprazole [From Abilify] AdvReac seizures Verified 08/10/24 14:44 ziprasidone [From Geodon] AdvReac seizures Verified 08/10/24 14:44 Review of Systems ROS Statement: Those systems with pertinent positive or pertinent negative responses have been documented in the HPI. ROS Other: All systems not noted in ROS Statement are negative. Past Medical History Past Medical History: No Reported History Additional Past Medical History / Comment(s): Possible history of hypertension and used to be on Coreg. History of Any Multi-Drug Resistant Organisms: MRSA Date of last positivie culture/infection: 2018 MDRO Source:: right second finger. Past Surgical History: No Surgical Hx Reported Past Psychological History: Schizophrenia Smoking Status: Current every day smoker Past Alcohol Use History: Occasional Past Drug Use History: None Reported, Cocaine, Heroin, Marijuana, Methamphetamine - Past Family History Father Family Medical History: No Reported History Additional Family Medical History / Comment(s): patient reports that family has no medical conditions that he's aware of Mother Family Medical History: No Reported History Additional Family Medical History / Comment(s): Patient refused to answer questions regarding family history General Exam - General Exam Comments Initial Comments: General: Well-appearing, nontoxic, no acute distress. Head: Normocephalic, atraumatic Eyes: PERRLA, EOMI ENT: Airway patent right TM is clear, no palpatory dental pain to the right upper teeth Chest: Nonlabored breathing Skin: No visual rash, normal skin tone Neuro: Alert and oriented 3 Musculoskeletal: No gross abnormalities Limitations: no limitations Course Vital Signs 08/10/24 12:47 Temperature 98.5 F Pulse Rate 85 Respiratory 18 Rate Blood Pressure 144/93 O2 Sat by Pulse 98 Oximetry Medical Decision Making - Medical Decision Making Was pt. sent in by a medical professional or institution (, PA, MANAGER ELECTRICAL, urgent care, hospital, or [place] [facility] [place] facility...) When possible be specific @ -No Did you speak to anyone other than the patient for history (EMS, parent, family, police, friend...)? What history was obtained from this source @ -No Did you review nursing and triage notes (agree or disagree)? Why? @ -I reviewed and agree with nursing and triage notes Were old charts reviewed (outside hosp., previous admission, EMS record, old EKG, old radiological studies, urgent care reports/EKG's, [place] [facility] facility records)? Report findings @ -No old charts were reviewed Differential Diagnosis (chest pain, altered mental status, abdominal pain women, abdominal pain men, vaginal bleeding, musculoskeletal, weakness, fever, dyspnea, syncope, headache, dizziness, GI bleed, back pain, seizure, CVA, palpatations, mental health)? @ -Differential mental health EKG interpreted by me (3pts min.). @ -None done X-rays interpreted by me (1pt min.). @ -None done CT interpreted by me (1pt min.). @ -None done U/S interpreted by me (1pt. min.). @ -None done What testing was considered but not performed or refused? (CT, X-rays, U/S, labs)? Why? @ -None What meds were considered but not given or refused? Why? @ -None Was smoking cessation discussed for >3mins.? @ -No Were there social determinants of health that impacted care today? How? (Homelessness, low income, unemployed, alcoholism, drug addiction, transportation, low edu. Level, literacy, decrease access to med. care, residential, rehab)? @ -History of illicit drug use Was there de-escalation of care discussed even if they declined (Discuss DNR or withdrawal of care, Hospice)? DNR status @ -No What co-morbidities impacted this encounter? (DM, HTN, Smoking, COPD, CAD, Cancer, CVA, ARF, Chemo, Hep., AIDS, mental health diagnosis, sleep apnea, morbid obesity)? @ -Psychiatric illness Was patient admitted / discharged? Hospital course, mention meds given and route, prescriptions, significant lab abnormalities, going to OR and other pertinent info. @ -39-year-old male presents emergency department with psychiatric symptoms. Vital signs stable. Physical examination is benign. No concerns for otitis media. Medically cleared for EPS evaluation Did you discuss the management of the patient with other professionals (professionals i.e. , PA, MANAGER ELECTRICAL, lab, RT, psych nurse, social sciences instructor, pedicab driver, teacher, navigating officer, rn case mgr)? Give summary @ -Case discussed with EPS who recommend patient be admitted to inpatient psych. Patient will voluntarily sign Was critical care preformed (if so, how long)? @ -No Undiagnosed new problem with uncertain prognosis? @ -No Drug Therapy requiring intensive monitoring for toxicity (Heparin, Nitro, Insulin, Cardizem)? @ -No Were any procedures done? @ -No Diagnosis/symptom? Acute, or Chronic, or Acute on Chronic? Uncomplicated (without systemic symptoms) or Complicated (systemic symptoms)? @ -Hallucinations Side effects of treatment? @ -No Exacerbation, Progression, or Severe Exacerbation? @ -No Poses a threat to life or bodily function? How? (Chest pain, [place], NH, pneumonia, PE, COPD, DKA, ARF, appy, cholecystitis, CVA, Diverticulitis, Homicidal, Suicidal, threat to staff... and all critical care pts) @ -yes - Lab Data Lab Results 08/10/24 Range/Units 14:50 Urine Opiates Screen Not Detected (NotDetected) Ur Oxycodone Screen Not Detected (NotDetected) Urine Methadone Screen Not Detected (NotDetected) Ur Barbiturates Screen Not Detected (NotDetected) U Tricyclic Antidepress Not Detected (NotDetected) Ur Phencyclidine Scrn Not Detected (NotDetected) Ur Amphetamines Screen Not Detected (NotDetected) U Methamphetamines Scrn Not Detected (NotDetected) U Benzodiazepines Scrn Not Detected (NotDetected) Urine Cocaine Screen Detected H (NotDetected) U Marijuana (THC) Screen Detected H (NotDetected) Disposition Clinical Impression: Hallucinations Disposition: TRANSFER TO PSYCH HOSP/UNIT Condition: Fair Referrals: None,Stated [Primary Care Provider] - 1-2 days Decision Time: 16:24
[2024-08-10 15:57] LABS: Amphetamine Screen,Urine Not Detected (NotDetected); Barbiturate Screen,Urine Not Detected (NotDetected); Benzodiazepines Screen,Urine Not Detected (NotDetected); Cocaine Screen,Urine Detected (NotDetected); Methadone Screen, Urine Not Detected (NotDetected); Opiate Screen,Urine Not Detected (NotDetected); Oxycodone Screen, Urine Not Detected (NotDetected); Phencyclidine Screen,Urine Not Detected (NotDetected); Tricyclic Antidepressant,Urine Not Detected (NotDetected); Urn Cannabinoid Scrn Detected (NotDetected)
[2024-08-10] MEDS ORDERED: LORazepam 1 MG TAB PO PRN (19:45)
[2024-08-10] MEDS ORDERED: MAGNESIUM HYDROXIDE 2,400 MG/30 ML CUP PO PRN (19:45)
[2024-08-10] MEDS ORDERED: HALOPERIDOL LACTATE 5 MG/ML 1 ML VIAL IM PRN (19:45)
[2024-08-10] MEDS ORDERED: LORazepam 2 MG/ML INJ IM PRN (19:45)
[2024-08-10] MEDS ORDERED: ACETAMINOPHEN TAB 325 MG TAB PO PRN (19:45)
[2024-08-10] MEDS ORDERED: IBUPROFEN 600 MG TAB PO PRN (19:45)
[2024-08-10] MEDS ORDERED: MAG HYDROX/AL HYDROX/SIMETH 355 ML BOTTLE PO PRN (19:45)
[2024-08-10] MEDS ORDERED: traZODone HCL 100 MG TAB PO PRN (19:45)
[2024-08-10] MEDS ORDERED: haloperidoL 5 MG TAB PO PRN (19:45)
[2024-08-10 20:52] VITALS: RESP 16
--- NOTE | 2024-08-11 06:12 | P.CONS ---
History of Present Illness - Reason for Consult Consult date: 08/11/24 Past Medical History Past Medical History: Hypertension Additional Past Medical History / Comment(s): Possible history of hypertension and used to be on Coreg. History of Any Multi-Drug Resistant Organisms: MRSA Year Discovered:: 2017 MDRO Source:: right second finger. Past Surgical History: No Surgical Hx Reported Smoking Status: Current every day smoker - Past Family History Father History Unknown: Yes Family Medical History: No Reported History Additional Family Medical History / Comment(s): patient reports that family has no medical conditions that he's aware of Mother History Unknown: Yes Family Medical History: No Reported History Additional Family Medical History / Comment(s): Patient refused to answer questions regarding family history Medications and Allergies Home Medications Medication Instructions Recorded Confirmed Type fluPHENAZine decanoate [Prolixin 25 mg IM [id number] 08/10/24 08/10/24 History Decanoate] Allergies Allergy/AdvReac Type Severity Reaction Status Date / Time aripiprazole [From Abilify] AdvReac seizures Verified 08/10/24 14:44 ziprasidone [From Geodon] AdvReac seizures Verified 08/10/24 14:44 Physical Exam Vitals: Vital Signs Temp Pulse Pulse Pulse Resp BP BP 08/10/24 20:44 98.0 F 77 74 16 152/94 08/10/24 18:12 98.6 F 87 18 140/95 08/10/24 12:47 98.5 F 85 18 144/93 BP Pulse Ox 08/10/24 20:44 164/100 98 08/10/24 18:12 97 08/10/24 12:47 98 Intake and Output 08/10/24 08/10/24 08/11/24 14:59 22:59 06:59 Other: Weight 83.461 kg 81.873 kg Results Labs: Abnormal Lab Results - Last 24 Hours (Table) 08/10/24 Range/Units 14:50 Urine Cocaine Screen Detected H (NotDetected) U Marijuana (THC) Screen Detected H (NotDetected)
[2024-08-11 08:11] LABS: Appearance,Urine Clear (Clear); Bilirubin,Urine Negative (Negative); Blood,Urine Negative (Negative); Color,Urine Colorless; Glucose,Urine (UA) Trace (Negative); Ketones,Urine Negative (Negative); Leukocyte Esterase,Urine Negative (Negative); Nitrite,Urine Negative (Negative); PH, Urine 6.5 (5.0-8.0); Protein,Urine Negative (Negative); Specific Gravity,Urine 1.009 (1.001-1.035); Urobilinogen,Urine <2.0 mg/dL (<2.0)
[2024-08-11] MEDS: NICOTINE 14MG/24HR PATCH TRANSDERM SCH (08:53)
[2024-08-11 10:21] LABS: Basophils # (A) 0.1 k/uL (0-0.2); Basophils % (A) 1 %; Eosinophils # (A) 0.2 k/uL (0-0.7); Eosinophils % (A) 3 %; HCT 43.9 % (39.0-53.0); HGB 14.7 gm/dL (13.0-17.5); Lymphocytes # (A) 2.1 k/uL (1.0-4.8); Lymphocytes % (A) 31 %; MCH 30.3 pg (25.0-35.0); MCHC 33.6 g/dL (31.0-37.0); MCV 90.2 fL (80.0-100.0); Mean Platelet Volume 7.3; Monocytes # (A) 0.4 k/uL (0-1.0); Monocytes % (A) 6 %; Neutrophils % (A) 58 %; Platelet Count 324 k/uL (150-450); RBC 4.86 m/uL (4.30-5.90); RDW 12.6 % (11.5-15.5)
[2024-08-11 10:38] LABS: ALT 13 U/L (4-49); AST 20 U/L (17-59); African American GFR (CKD) >90 (>60 ml/min/1.73 sqM); Albumin 4.4 g/dL (3.5-5.0); Alkaline Phosphatase 70 U/L (38-126); Anion Gap 9 mmol/L; Blood Urea Nitrogen 9 mg/dL (9-20); Calcium 9.6 mg/dL (8.4-10.2); Carbon Dioxide 26 mmol/L (22-30); Chloride 103 mmol/L (98-107); Glucose 167 mg/dL (74-99); Non-African American GFR(CKD) >90 (>60 ml/min/1.73 sqM); Potassium 4.4 mmol/L (3.5-5.1); Sodium 138 mmol/L (137-145); Total Protein 7.1 g/dL (6.3-8.2)
[2024-08-11 14:38] VITALS: BMI 28.3
--- NOTE | 2024-08-11 14:54 | P.HP ---
Psychiatric H&P - . H&P Date: 08/11/24 History & Physical: IDENTIFYING DATA: Patient is a 39-year-old male with history of schizoaffective disorder, currently lives in apartment in [place], has a public guardian. HPI: Patient presented to the hospital yesterday. He claims he asked [facility] to bring him to the hospital because he was "stressed out" about where he was staying, his finances, "and stuff like that". He appears to have very limited insight into his mental health and substance abuse issues. He rclaims he was hearing auditory hallucinations prior to admission but "I really can't make them out"; he denies hearing voices since admission, denies hearing voices today. He denies currently having AH. He denies SI or HI, intent or plan. He received his Prolixin decanoate injection 25 mg q2 weeks 1-2 days prior to admission. He reports his mood is "alright", claims he is eating and sleeping fine. He is calm, superficially cooperative, evasive when discussing substance abuse. He claims he feels like he is back to normal and inquires about discharge. In regards to substance abuse, he appears to utilize defense mechanisms of denial and minimization. He denies having used cocaine recently and he states he is "not too sure" when he last used cannabis, however his UDS yesterday (08/10/24) on admission is positive for cocaine and THC. When informed of this he claims to not know why. He denies alcohol use. He smokes tobacco about 1/3 ppd, about 2 packs per week. PAST PSYCHIATRIC HISTORY: Patient states that he is a history of schizophrenia. Patient has had many medication trials, including Invega Sustenna, Abilify Maintena, Abilify, Risperdal, Zoloft, Trazodone. Most recently Prolixin decanoate. Patient's case is currently open with [facility]. Patient denies any history of suicide attempts in the past. PMH: As per ER note ALLERGIES: As per EMR CHEMICAL DEPENDENCY HISTORY: As per HPI FAMILY PSYCHIATRIC/SUBSTANCE USE HISTORY: Denies SOCIAL HISTORY: Patient was born and raised in [place]. Completed 11th grade. On social security disability. Support system includes his mother and his family. Lives in an apartment in [place], [place]. MENTAL STATUS EXAM: General Appearance: Patient appears to be have several tattoos on his face, appears stated, fair hygiene and grooming, wearing hospital gown. Behavior: Patient is calmly sitting in the chair without any agitated behavior. Superficially cooperative and evasive regarding drug use. Speech: Patient's speech is fluent and non-pressured. Mood/Affect: Patient reports their mood is "stressed out", affect is congruent. Suicidality/Homicidality: He is denying any homicidal or suicidal ideation Perceptions: Patient denies any visual hallucinations and denies any auditory hallucinations Though content/process: There is no evidence of any delusional thought content and thought process is concrete. Memory and concentration: AOX3, grossly intact for the purposes of this session. Judgment and insight: Chronically poor/impulsive STRENGTHS/WEAKNESSES: Strength is that patient is able to make needs known and seek treatment. Weakness is that patient has poor judgment and substance abuse. INTELLECT: Appears to be average to slightly below average IMPRESSIONS: Schizophrenia (Schizoaffective disorder - depressed type by history) Cocaine use disorder, moderate Cannabis use disorder, moderate Tobacco use disorder, moderate PLAN: -Patient is admitted under an active 365-day court order for mental health treatment. -Medications: Continue Prolixin decanoate 25 mg q2 weeks for psychosis. Last dose given 1-2 days prior to admission, next dose due on or around 08/24/24. Continue Trazodone 100 mg QHS PRN for sleep. -Coordinate outpatient appointments with [facility]. -Ativan and Haldol PRN for agitation/aggression. -Patient was informed of the risks, benefits and side effects of the medication and patient verbally consented to taking the medications. -I attempted to discuss the adverse effects of substance abuse on this mental health however patient has very poor insight into his substance abuse. -Internal Medicine consult to perform medical evaluation and physical. -NRT - nicotine patch - on board for discharge planning. Encourage patient to participate in groups to work on coping skills. Will monitor over the weekend and will consider discharge early next week if continues to stabilize. Allergies Allergy/AdvReac Type Severity Reaction Status Date / Time aripiprazole [From Abilify] AdvReac seizures Verified 08/10/24 14:44 ziprasidone [From Geodon] AdvReac seizures Verified 08/10/24 14:44 Vital Signs Temp 98.0 F 08/10/24 20:44 Pulse 90 08/11/24 08:53 Resp 16 08/10/24 20:44 BP 154/77 08/11/24 08:53 Pulse Ox 98 08/10/24 20:44 FiO2 Intake & Output 08/10/24 08/11/24 08/11/24 18:59 06:59 18:59 Weight 83.461 kg 81.873 kg Laboratory Last Values WBC 7.0 k/uL (3.8-10.6) 08/11/24 09:43 RBC 4.86 m/uL (4.30-5.90) 08/11/24 09:43 Hgb 14.7 gm/dL (13.0-17.5) 08/11/24 09:43 Hct 43.9 % (39.0-53.0) 08/11/24 09:43 MCV 90.2 fL (80.0-100.0) 08/11/24 09:43 MCH 30.3 pg (25.0-35.0) 08/11/24 09:43 MCHC 33.6 g/dL (31.0-37.0) 08/11/24 09:43 RDW 12.6 % (11.5-15.5) 08/11/24 09:43 Plt Count 324 k/uL (150-450) 08/11/24 09:43 MPV 7.3 08/11/24 09:43 Neutrophils % 58 % 08/11/24 09:43 Lymphocytes % 31 % 08/11/24 09:43 Monocytes % 6 % 08/11/24 09:43 Eosinophils % 3 % 08/11/24 09:43 Basophils % 1 % 08/11/24 09:43 Neutrophils # 4.0 k/uL (1.3-7.7) 08/11/24 09:43 Lymphocytes # 2.1 k/uL (1.0-4.8) 08/11/24 09:43 Monocytes # 0.4 k/uL (0-1.0) 08/11/24 09:43 Eosinophils # 0.2 k/uL (0-0.7) 08/11/24 09:43 Basophils # 0.1 k/uL (0-0.2) 08/11/24 09:43 Urine Color Colorless 08/10/24 14:50 Urine Appearance Clear (Clear) 08/10/24 14:50 Urine pH 6.5 (5.0-8.0) 08/10/24 14:50 Ur Specific [place] 1.009 (1.001-1.035) 08/10/24 14:50 Urine Protein Negative (Negative) 08/10/24 14:50 Urine Glucose (UA) Trace (Negative) H 08/10/24 14:50 Urine Ketones Negative (Negative) 08/10/24 14:50 Urine Blood Negative (Negative) 08/10/24 14:50 Urine Nitrite Negative (Negative) 08/10/24 14:50 Urine Bilirubin Negative (Negative) 08/10/24 14:50 Urine Urobilinogen <2.0 mg/dL (<2.0) 08/10/24 14:50 Ur Leukocyte Esterase Negative (Negative) 08/10/24 14:50 Urine Opiates Screen Not Detected (NotDetected) 08/10/24 14:50 Ur Oxycodone Screen Not Detected (NotDetected) 08/10/24 14:50 Urine Methadone Screen Not Detected (NotDetected) 08/10/24 14:50 Ur Barbiturates Screen Not Detected (NotDetected) 08/10/24 14:50 U Tricyclic Antidepress Not Detected (NotDetected) 08/10/24 14:50 Ur Phencyclidine Scrn Not Detected (NotDetected) 08/10/24 14:50 Ur Amphetamines Screen Not Detected (NotDetected) 08/10/24 14:50 U Methamphetamines Scrn Not Detected (NotDetected) 08/10/24 14:50 U Benzodiazepines Scrn Not Detected (NotDetected) 08/10/24 14:50 Urine Cocaine Screen Detected (NotDetected) H 08/10/24 14:50 U Marijuana (THC) Screen Detected (NotDetected) H 08/10/24 14:50 SARS-CoV-2 (PCR) Not Detected (Not Detectd) 08/10/24 16:12
[2024-08-11 15:25] LABS: Chol/HDL Ratio 3.75 Ratio; LDL Cholesterol,Calculated 79.5 mg/dL (0.0-131.0)
--- NOTE | 2024-08-12 15:47 | P.PN ---
Subjective Progress Note Date: 08/12/24 subjective: The patient says he is doing well slept well good appetite hang out with others on the milieu that based he just need to get his shot I work. He said he had his Celexa and shot about 2 days ago he thinks is starting to work MENTAL STATUS EXAM: patient has good eye contact pleasant was chatting amicably with his brother on the phone when I came but was willing to postpone that and come and talk to me for a while. He says he thinks that the shot is working as long as he remembers to take it he does well he does not think he needs to increase it any General Appearance: Patient appears to be have several tattoos on his face, appears stated, fair hygiene and grooming, wearing hospital gown. Behavior: Patient is calmly sitting in the chair without any agitated behavior. Superficially cooperative and evasive regarding drug use. Speech: Patient's speech is fluent and non-pressured. Mood/Affect: Patient reports their mood is "stressed out", affect is congruent. Suicidality/Homicidality: He is denying any homicidal or suicidal ideation Perceptions: Patient denies any visual hallucinations and denies any auditory hallucinations Though content/process: There is no evidence of any delusional thought content and thought process is concrete. Memory and concentration: AOX3, grossly intact for the purposes of this session. Judgment and insight: Chronically poor/impulsive STRENGTHS/WEAKNESSES: Strength is that patient has good social supports and seems to get along well with people IMPRESSIONS: Schizophrenia (Schizoaffective disorder - depressed type by history) Cocaine use disorder, moderate Cannabis use disorder, moderate Tobacco use disorder, moderate PLAN: no change in medication at this time -Patient is admitted under an active 365-day court order for mental health treatment. -Medications: Continue Prolixin decanoate 25 mg q2 weeks for psychosis. Last dose given 1-2 days prior to admission, next dose due on or around 08/24/24. Continue Trazodone 100 mg QHS PRN for sleep. -Coordinate outpatient appointments with [facility]. -Ativan and Haldol PRN for agitation/aggression. -Patient was informed of the risks, benefits and side effects of the medication and patient verbally consented to taking the medications. -I attempted to discuss the adverse effects of substance abuse on this mental health however patient has very poor insight into his substance abuse. -Internal Medicine consult to perform medical evaluation and physical. -NRT - nicotine patch -SW on board for discharge planning. Encourage patient to participate in groups to work on coping skills. Will monitor over the weekend and will consider discharge early next week if continues to stabilize.subjective: Objective - Vital Signs Vital signs: Vital Signs Temp 98 F 08/12/24 06:44 Pulse 77 08/12/24 06:44 Resp 16 08/12/24 06:44 BP 126/89 08/12/24 06:44 Pulse Ox 98 08/12/24 06:44 FiO2 Intake & Output 08/11/24 08/12/24 08/12/24 18:59 06:59 18:59 Weight 81.873 kg - Labs CBC & Chem 7: 08/11/24 09:43 08/11/24 09:43
[2024-08-12] MEDS: CARBAMIDE PEROXIDE 6.5% DROPS 15 ML BTL RIGHT EAR SCH (22:14)
--- NOTE | 2024-08-13 13:41 | P.PN ---
Subjective Progress Note Date: 08/13/24 Principal diagnosis: Schizophrenia undifferentiated subjective: The patient says he is doing well slept well good appetite, hangs out with others in the milieu, that basically he just need to get his shot. He said he had his Prolixin shot about 2 days ago he thinks it is starting to work. MENTAL STATUS EXAM: patient has good eye contact pleasant, he was taking a Wednesday afternoon nap but got up and came readilly to talk to me for a while. He says he thinks that the shot is working as long as he remembers to take it he does well he does not think he needs to increase it any. General Appearance: Patient appears to be have several tattoos on his face, appears stated, fair hygiene and grooming, wearing hospital gown. Behavior: Patient is calmly sitting in the chair without any agitated behavior. Superficially cooperative and evasive regarding drug use. Speech: Patient's speech is fluent and non-pressured. Mood/Affect: Patient reports their mood is "stressed out", affect is congruent. Suicidality/Homicidality: He is denying any homicidal or suicidal ideation Perceptions: Patient denies any visual hallucinations and denies any auditory hallucinations Though content/process: There is no evidence of any delusional thought content and thought process is concrete. Memory and concentration: AOX3, grossly intact for the purposes of this session. Judgment and insight: Chronically poor/impulsive STRENGTHS/WEAKNESSES: Strength is that patient has good social supports and seems to get along well with people IMPRESSIONS: Schizophrenia (Schizoaffective disorder - depressed type by history) Cocaine use disorder, moderate Cannabis use disorder, moderate Tobacco use disorder, moderate PLAN: no change in medication at this time -Patient is admitted under an active 365-day court order for mental health treatment. -Medications: Continue Prolixin decanoate 25 mg q2 weeks for psychosis. Last dose given 1-2 days prior to admission, next dose due on or around 08/24/24. Continue Trazodone 100 mg QHS PRN for sleep. -Coordinate outpatient appointments with [facility]. -Ativan and Haldol PRN for agitation/aggression. -Patient was informed of the risks, benefits and side effects of the medication and patient verbally consented to taking the medications. -I attempted to discuss the adverse effects of substance abuse on this mental health however patient has very poor insight into his substance abuse. -Internal Medicine consult to perform medical evaluation and physical. -NRT - nicotine patch -SW on board for discharge planning. Encourage patient to participate in groups to work on coping skills. Will monitor over the weekend and will consider discharge early next week if continues to stabilize.subjective: Objective - Vital Signs Vital signs: Vital Signs Temp 98 F 08/12/24 06:44 Pulse 77 08/12/24 06:44 Resp 16 08/12/24 06:44 BP 126/89 08/12/24 06:44 Pulse Ox 98 08/12/24 06:44 FiO2 - Labs CBC & Chem 7: 08/11/24 09:43 08/11/24 09:43
[2024-08-14 06:45] VITALS: BP 126/91; PULSE 105; TEMP 98
--- NOTE | 2024-08-14 13:01 | P.DS ---
Providers Date of admission: 08/10/24 19:38 Expected date of discharge: 08/14/24 Attending physician: Montana Saleh MD Consults: 08/10/24 19:45 Consult Physician Routine Consulting Provider: Arun Draper Consult Reason/Comments: History and Physical, new admission Do you want consulting provider notified?: Yes Primary care physician: Stated None Hospital Course: Admission HPI: Admission note was completed by Dr. Hoang: "IDENTIFYING DATA: Patient is a 39-year-old male with history of schizoaffective disorder, currently lives in apartment in [place], has a public guardian. HPI: Patient presented to the hospital yesterday. He claims he asked [facility] to bring him to the hospital because he was "stressed out" about where he was staying, his finances, "and stuff like that". He appears to have very limited insight into his mental health and substance abuse issues. He claims he was hearing auditory hallucinations prior to admission but "I really can't make them out"; he denies hearing voices since admission, denies hearing voices today. He denies currently having AH. He denies SI or HI, intent or plan. He received his Prolixin decanoate injection 25 mg q2 weeks 1-2 days prior to admission. He reports his mood is "alright", claims he is eating and sleeping fine. He is calm, superficially cooperative, evasive when discussing substance abuse. He claims he feels like he is back to normal and inquires about discharge. In regards to substance abuse, he appears to utilize defense mechanisms of denial and minimization. He denies having used cocaine recently and he states he is "not too sure" when he last used cannabis, however his UDS yesterday (08/10/24) on admission is positive for cocaine and THC. When informed of this he claims to not know why. He denies alcohol use. He smokes tobacco about 1/3 ppd, about 2 packs per week. PAST PSYCHIATRIC HISTORY: Patient states that he is a history of schizophrenia. Patient has had many medication trials, including Invega Sustenna, Abilify Maintena, Abilify, Risperdal, Zoloft, Trazodone. Most recently Prolixin decanoate. Patient's case is currently open with [facility]. Patient denies any history of suicide attempts in the past. PMH: As per ER note ALLERGIES: As per EMR CHEMICAL DEPENDENCY HISTORY: As per HPI FAMILY PSYCHIATRIC/SUBSTANCE USE HISTORY: Denies SOCIAL HISTORY: Patient was born and raised in [place]. Completed 11th grade. On social security disability. Support system includes his mother and his family. Lives in an apartment in [place], [place]. MENTAL STATUS EXAM: General Appearance: Patient appears to be have several tattoos on his face, appears stated, fair hygiene and grooming, wearing hospital gown. Behavior: Patient is calmly sitting in the chair without any agitated behavior. Superficially cooperative and evasive regarding drug use. Speech: Patient's speech is fluent and non-pressured. Mood/Affect: Patient reports their mood is "stressed out", affect is congruent. Suicidality/Homicidality: He is denying any homicidal or suicidal ideation Perceptions: Patient denies any visual hallucinations and denies any auditory hallucinations Though content/process: There is no evidence of any delusional thought content and thought process is concrete. Memory and concentration: AOX3, grossly intact for the purposes of this session. Judgment and insight: Chronically poor/impulsive STRENGTHS/WEAKNESSES: Strength is that patient is able to make needs known and seek treatment. Weakness is that patient has poor judgment and substance abuse. INTELLECT: Appears to be average to slightly below average IMPRESSIONS: Schizophrenia (Schizoaffective disorder - depressed type by history) Cocaine use disorder, moderate Cannabis use disorder, moderate Tobacco use disorder, moderate PLAN: -Patient is admitted under an active 365-day court order for mental health treatment. -Medications: Continue Prolixin decanoate 25 mg q2 weeks for psychosis. Last dose given 1-2 days prior to admission, next dose due on or around 08/24/24. Continue Trazodone 100 mg QHS PRN for sleep. -Coordinate outpatient appointments with [facility]. -Ativan and Haldol PRN for agitation/aggression. -Patient was informed of the risks, benefits and side effects of the medication and patient verbally consented to taking the medications. -I attempted to discuss the adverse effects of substance abuse on this mental health however patient has very poor insight into his substance abuse. -Internal Medicine consult to perform medical evaluation and physical. -NRT - nicotine patch - on board for discharge planning. Encourage patient to participate in groups to work on coping skills. Will monitor over the weekend and will consider discharge early next week if continues to stabilize." Hospital course: Upon admission to the unit patient was directable and agreeable to commence treatment and signed adult voluntary form. Patient got along well with other patients on the unit and followed unit protocol. Patient was compliant with the medications and denied any side effects throughout hospital course. Patient had received his Prolixin 25 mg IM [id number] injection on 08/09/24 and was monitored on this dose. Patient was also seen by medical team for history and physical exam, and was started on ear drops for ear wax buildup. Throughout the course of the hospitalization patient gradually improved and returned back to their baseline level of functioning. On the day of discharge patient denied any suicidal or homicidal ideation, intent or plan denied any auditory or visual hallucinations. Patient endorsed wanting to live for his health and family. The patient denied any access to guns or weapons. Patient denied any paranoia and did not endorse any delusions. Patient does have a significant history of substance abuse and was counseled on abstaining from all substances including alcohol and marijuana. Patient was offered however declined inpatient substance-abuse rehab. Patient elected to do outpatient substance use treatment program through [facility]. Patient was also counseled on the medications and need for regular compliance and was encouraged to follow-up with their outpatient appointment for mental health and also for primary care. Mental status exam: General Appearance: Patient appears to be stated age with tattoos on his face. He has improved hygiene and grooming. Behavior: Patient is calmly seated without any agitated behavior. No acute distress. He attempts to cooperate. Speech: Patient's speech is fluent and non-pressured. Mood/Affect: Patient reports their mood is "good", affect is congruent and euthymic. Suicidality/Homicidality: Patient denies having any suicidal or homicidal ideation intent or plan. Perceptions: Patient denies any auditory or visual hallucinations. Though content/process: There is no evidence of any delusional thought content and thought process is concrete at baseline. Memory and concentration: AOX3, grossly intact for the purposes of this session. Judgment and insight: chronically poor, however has improved with guarded prognosis Impression: Schizophrenia (Schizoaffective disorder - depressed type by history) Cocaine use disorder, moderate Cannabis use disorder, moderate Tobacco use disorder, moderate Plan: -Continue with discharge today as patient has improved and stabilized psychiatrically and is not currently an imminent threat to himself and/or others. Patient will remain at chronically elevated risk for harm to self and/or others due to his impulsivity and polysubstance abuse. -Continue medications: Continue Prolixin decanoate 25 mg q2 weeks for psychosis. Last dose given 1-2 days prior to admission, next dose due on or around 08/24/24. -Patient was counseled on the need for medication compliance and appropriate follow-up at mental health and also primary care for medical issues. Patient verbalized understanding and agreed. -Social work also to arrange for patients follow up appointments with [facility] for psychiatric care along with follow up with primary care provider. ACT team will sisal picker patient and provide transportation home. -Patient counseled on abstaining from recreational drugs and marijuana and alcohol. Was informed/educated on the adverse effects on their physical and mental health. Patient verbally agreed and understood. Patient was offered substance abuse treatment however declined at this time. -Patient was instructed to return to the hospital or seek immediate medical care if their psychiatric or medical symptoms do worsen or reoccur. Laboratory Results WBC 7.0 k/uL (3.8-10.6) 08/11/24 09:43 RBC 4.86 m/uL (4.30-5.90) 08/11/24 09:43 Hgb 14.7 gm/dL (13.0-17.5) 08/11/24 09:43 Hct 43.9 % (39.0-53.0) 08/11/24 09:43 MCV 90.2 fL (80.0-100.0) 08/11/24 09:43 MCH 30.3 pg (25.0-35.0) 08/11/24 09:43 MCHC 33.6 g/dL (31.0-37.0) 08/11/24 09:43 RDW 12.6 % (11.5-15.5) 08/11/24 09:43 Plt Count 324 k/uL (150-450) 08/11/24 09:43 MPV 7.3 08/11/24 09:43 Neutrophils % 58 % 08/11/24 09:43 Lymphocytes % 31 % 08/11/24 09:43 Monocytes % 6 % 08/11/24 09:43 Eosinophils % 3 % 08/11/24 09:43 Basophils % 1 % 08/11/24 09:43 Neutrophils # 4.0 k/uL (1.3-7.7) 08/11/24 09:43 Lymphocytes # 2.1 k/uL (1.0-4.8) 08/11/24 09:43 Monocytes # 0.4 k/uL (0-1.0) 08/11/24 09:43 Eosinophils # 0.2 k/uL (0-0.7) 08/11/24 09:43 Basophils # 0.1 k/uL (0-0.2) 08/11/24 09:43 Sodium 138 mmol/L (137-145) 08/11/24 09:43 Potassium 4.4 mmol/L (3.5-5.1) 08/11/24 09:43 Chloride 103 mmol/L (98-107) 08/11/24 09:43 Carbon Dioxide 26 mmol/L (22-30) 08/11/24 09:43 Anion Gap 9 mmol/L 08/11/24 09:43 BUN 9 mg/dL (9-20) 08/11/24 09:43 Creatinine 0.86 mg/dL (0.66-1.25) 08/11/24 09:43 Est GFR (CKD-EPI)AfAm >90 (>60 ml/min/1.73 sqM) 08/11/24 09:43 Est GFR (CKD-EPI)NonAf >90 (>60 ml/min/1.73 sqM) 08/11/24 09:43 Glucose 167 mg/dL (74-99) H 08/11/24 09:[address] Glu mg/dL 177 mg/dL 08/11/24 09:43 Hemoglobin A1c 7.8 % (<=6.0) H 08/11/24 09:43 Calcium 9.6 mg/dL (8.4-10.2) 08/11/24 09:43 Total Bilirubin 1.0 mg/dL (0.2-1.3) 08/11/24 09:43 Conjugated Bilirubin 0.0 mg/dL (0.0-0.3) 08/11/24 09:43 Unconjugated Bilirubin 1.0 mg/dL (0.0-1.1) 08/11/24 09:43 Delta Bilirubin 0.0 mg/dL (0.0-0.2) 08/11/24 09:43 AST 20 U/L (17-59) 08/11/24 09:43 ALT 13 U/L (4-49) 08/11/24 09:43 Alkaline Phosphatase 70 U/L (38-126) 08/11/24 09:43 Total Protein 7.1 g/dL (6.3-8.2) 08/11/24 09:43 Albumin 4.4 g/dL (3.5-5.0) 08/11/24 09:43 Triglycerides 138.00 mg/dL (0.00-149.00) 08/11/24 09:43 Cholesterol 146.00 mg/dL (0.00-200.00) 08/11/24 09:43 LDL Cholesterol, Calc 79.5 mg/dL (0.0-131.0) 08/11/24 09:43 VLDL Cholesterol, Calc 27.60 mg/dL (5.00-40.00) 08/11/24 09:43 HDL Cholesterol 38.90 mg/dL (40.00-60.00) L 08/11/24 09:43 Cholesterol/HDL Ratio 3.75 Ratio 08/11/24 09:43 TSH 1.990 mIU/L (0.465-4.680) 08/11/24 09:43 Urine Color Colorless 08/10/24 14:50 Urine Appearance Clear (Clear) 08/10/24 14:50 Urine pH 6.5 (5.0-8.0) 08/10/24 14:50 Ur Specific [place] 1.009 (1.001-1.035) 08/10/24 14:50 Urine Protein Negative (Negative) 08/10/24 14:50 Urine Glucose (UA) Trace (Negative) H 08/10/24 14:50 Urine Ketones Negative (Negative) 08/10/24 14:50 Urine Blood Negative (Negative) 08/10/24 14:50 Urine Nitrite Negative (Negative) 08/10/24 14:50 Urine Bilirubin Negative (Negative) 08/10/24 14:50 Urine Urobilinogen <2.0 mg/dL (<2.0) 08/10/24 14:50 Ur Leukocyte Esterase Negative (Negative) 08/10/24 14:50 Urine Opiates Screen Not Detected (NotDetected) 08/10/24 14:50 Ur Oxycodone Screen Not Detected (NotDetected) 08/10/24 14:50 Urine Methadone Screen Not Detected (NotDetected) 08/10/24 14:50 Ur Barbiturates Screen Not Detected (NotDetected) 08/10/24 14:50 U Tricyclic Antidepress Not Detected (NotDetected) 08/10/24 14:50 Ur Phencyclidine Scrn Not Detected (NotDetected) 08/10/24 14:50 Ur Amphetamines Screen Not Detected (NotDetected) 08/10/24 14:50 U Methamphetamines Scrn Not Detected (NotDetected) 08/10/24 14:50 U Benzodiazepines Scrn Not Detected (NotDetected) 08/10/24 14:50 Urine Cocaine Screen Detected (NotDetected) H 08/10/24 14:50 U Marijuana (THC) Screen Detected (NotDetected) H 08/10/24 14:50 SARS-CoV-2 (PCR) Not Detected (Not Detectd) 08/10/24 16:12 Vital Signs (72 hours) 08/12/24 08/14/24 06:44 06:45 Temperature 98 F 98.0 F Pulse Rate [ 77 105 H Left] Respiratory 16 Rate Blood Pressure 126/89 [Left Arm] Blood Pressure 126/91 [Right Arm] O2 Sat by Pulse 98 99 Oximetry Patient Condition at Discharge: Fair Plan - Discharge Summary Discharge Rx Participant: No New Discharge Prescriptions: New Carbamide Peroxide [Debrox Otic] 5 drops RIGHT EAR BID ml Changed fluPHENAZine decanoate [Prolixin Decanoate] 25 mg IM Q15D 15 Days #1 ml Discharge Medication List Carbamide Peroxide [Debrox Otic] 5 drops RIGHT EAR BID ml 08/14/24 [Rx] fluPHENAZine decanoate [Prolixin Decanoate] 25 mg IM Q15D 15 Days #1 ml 08/14/24 [Rx] Follow up Appointment(s)/Referral(s): [facility] [Outside] - 08/16/24 4:30 pm (08-16-24 at 4:[address] Liang ACT team will see him before that apt) [facility] [REFERRING] - 1 Week Patient Instructions/Handouts: How to Stop Smoking (DC), Cocaine Abuse (DC), Schizophrenia (DC), Cannabis Abuse (DC) Activity/Diet/Wound Care/Special Instructions: [facility] Discharge Info Avoid the use of street drugs and alcohol. Take all medications as prescribed. When you are in need of refills on your medications, please contact your outpatient medical provider and/or outpatient psychiatrist. Please go to your scheduled outpatient appointments for aftercare treatment. If symptoms return or become worse, call the crisis line at or and/or visit the nearest emergency room for assistance. [place] [facility]icide and Crisis Lifeline - call or text [phone] Discharge Disposition: HOME SELF-CARE
[2024-08-24] MEDS ORDERED: fluPHENAZine DECANOATE 25 MG/ML 5ML MDV IM SCH (11:30)
== END 2024-08-14 12:45 | disposition home or self-care (01) | DRG 885 ==
LOC: EC 12:28 → 3MHU 19:38
PROVIDERS: ADMIT Psychiatry & Neurology Psychiatry; ATTEND Psychiatry & Neurology Psychiatry
DX: F25.9 Schizoaffective disorder, unspecified (principal); R45.851 Suicidal ideations; F14.20 Cocaine dependence, uncomplicated; G47.00 Insomnia, unspecified; F17.210 Nicotine dependence, cigarettes, uncomplicated; I10 Essential (primary) hypertension; F12.20 Cannabis dependence, uncomplicated; Z88.8 Allergy status to other drugs, medicaments and biological substances; Z71.51 Drug abuse counseling and surveillance of drug abuser; Z55.5 Less than a high school diploma; Z86.14 Personal history of Methicillin resistant Staphylococcus aureus infection
CPT/HCPCS: 80053; 80061; 80306; 81003; 82075; 82248; 83036; 84443; 85025; 87635; 99285